=== PATIENT | female | born 1945 | race Caucasian/White ===

== ENCOUNTER → 2017-04-25 | Outpatient (CLI) | payer OTHER ==
[~2017-04-25] MED LIST: ACET325 PO; AMLO5 PO; ASPI325 PO; ASPI81CH PO; ATOR20 PO; ATOR40TA PO; B Complex #11 EACH PO; B Complex1 EAC2 PO; BACL10 PO; CHOL10002; CLOP75 PO; DIGO.125 PO; DIPATR PO; DRON400T PO; FLAX PO; FLUO10 PO; FURO20 PO; Flecainide Acet50 MG PO; GABA100 PO; HYDACE5325 PO; HYDCHL25; HYDCHL25 PO; IBUP600 PO; IBUP800 PO; LIPOFLAVONOID PO; LOSA50 PO; LOSARTAN POTASS50 MG PO; METO25 PO; METO50 PO; MIRT15; MIRT15 PO; NITR.4SL SL; NITR.6SL SL; Nitrostat0.4 MG SL; Norco 5-325 Ta1 EACH PO; OMEGA-3 FISH O1 EAC3; OMEP20ER PO; ONDA4 PO; ONDA4ODT MM; ONDA8 PO; PANT20 PO; PANT40; POTA10T PO; POTCHL10ER PO; PROM25 PO; Prilosec Otc20 MG PO; Simvastatin20 MG PO; TRAM50 PO; TRAZ100 PO; TRAZ50 PO; VITAMIN C500 MG; Veetids 500500 MG PO; Verotin-Gr Cap1 EACH PO; Vitamin C1000 M1; WARF4 PO; XARELTO20 MG PO; Zanaflex2 M1 PO; Zofran Odt4 MG SL
[2017-04-25 14:40] LABS: Source, Urine Clean Catch
[2017-04-25 17:56] LABS: Appearance, Urine Clear (Clear); Bilirubin, Urine Neg (Neg); Blood, Urine 2+ (Neg); Color, Urine Yellow (P-Yellow); Glucose Qualitative, Urine Neg (Neg); Ketones, Urine Neg (Neg); Leukocyte Esterase, Urine Neg (Neg); Nitrite, Urine Neg (Neg); Protein, Urine Neg (Neg); Specific Gravity, Urine 1.025 (1.003-1.022); Urobilinogen, Urine NORM (Normal)
[2017-04-25 18:13] LABS: Calcium Oxalate Crystals Mod /hpf
[2017-04-25 18:14] LABS: Bacteria Rare /hpf; Squamous Epithelial Cells Rare /hpf (Few); White Blood Cells, Urine Not Seen /hpf (0-5)
== END ==
LOC: LAB SHORT 14:39
PROVIDERS: Nurse Practitioner Family
DX: R26.81 Unsteadiness on feet (principal); R25.1 Tremor, unspecified
CPT/HCPCS: 81001

== ENCOUNTER 2017-05-02 12:01 | Day surgery (SDC) | payer OTHER ==
[~2017-05-02] VITALS: Ht 162.6 cm; Wt 107.3 kg
[~2017-05-02 12:01] MED LIST changes: -LOSA50 PO; -ONDA4ODT MM; -Zanaflex2 M1 PO
== END 2017-05-02 13:49 | disposition home or self-care (01) ==
LOC: ORSCSDS 12:01
PROVIDERS: Internal Medicine Gastroenterology
PROC: 0D758ZZ Dilation of Esophagus, Via Natural or Artificial Opening Endoscopic (ICD-10-PCS; principal; 2017-05-02 13:30)
DX: R13.10 Dysphagia, unspecified (principal); K20.9 Esophagitis, unspecified; I10 Essential (primary) hypertension; I48.91 Unspecified atrial fibrillation; J44.9 Chronic obstructive pulmonary disease, unspecified; Z99.81 Dependence on supplemental oxygen; K21.9 Gastro-esophageal reflux disease without esophagitis; Z86.010 Personal history of colon polyps; E66.9 Obesity, unspecified; Z68.41 Body mass index [BMI] 40.0-44.9, adult; Z87.891 Personal history of nicotine dependence; Z79.01 Long term (current) use of anticoagulants; Z79.899 Other long term (current) drug therapy
CPT/HCPCS: J7120

== ENCOUNTER → 2017-06-13 | Outpatient (CLI) | payer OTHER ==
[~2017-06-13] MED LIST changes: +GABA100; -GABA100 PO; +TRAZ100
[2017-06-13 14:16] LABS: International Normalized Ratio 1.97; Prothrombin Time Results 20.9 Sec (9.7-11.5)
== END | disposition home or self-care (01) ==
LOC: LAB EV 12:52 → LAB SHORT 12:52
PROVIDERS: Physician Assistant Medical
DX: Z79.01 Long term (current) use of anticoagulants (principal); Z51.81 Encounter for therapeutic drug level monitoring; N76.4 Abscess of vulva
CPT/HCPCS: 85610; 87070; 87077; 87186; 87205

== ENCOUNTER 2017-07-17 12:32 | Emergency (ER) | payer OTHER ==
[~2017-07-17] VITALS: Ht 162.6 cm; Wt 106.1 kg
[~2017-07-17 12:32] MED LIST changes: -GABA100; +GABA100 PO; -TRAZ100
[2017-07-17] MEDS ORDERED: LOSA50 PO (12:42)
[2017-07-17] MEDS ORDERED: AMLO5 PO (12:43)
[2017-07-17] MEDS ORDERED: Flecainide Acet50 MG PO (12:44)
[2017-07-17] MEDS ORDERED: ONDA4ODT MM (12:45)
[2017-07-17 13:13] LABS: BASOPHILS ABSOLUTE AUTO 0.03 K/mm3 (0.00-0.23); BASOPHILS PERCENT AUTO 0 % (0-2); EOSINOPHILS ABSOLUTE AUTO 0.08 K/mm3 (0.00-0.68); EOSINOPHILS PERCENT AUTO 1 % (0-6); Hematocrit 46.7 % (33.0-51.0); IMMATURE GRAN ABSOLUTE AUTO 0.04 K/mm3 (0.00-0.10); IMMATURE GRAN PERCENT AUTO 0 % (0-1); LYMPHOCYTES ABSOLUTE AUTO 1.67 K/mm3 (0.84-5.20); LYMPHOCYTES PERCENT AUTO 18 % (21-46); MONOCYTES ABSOLUTE AUTO 0.56 K/mm3 (0.16-1.47); MONOCYTES PERCENT AUTO 6 % (4-13); Mean Corpuscular HGB 30.4 pg (26.0-34.0); Mean Corpuscular HGB Conc 32.1 g/dL (31.5-36.5); Mean Corpuscular Volume 95 fL (80-100); Mean Platelet Volume 10.1 fL (9.1-12.4); NEUTROPHILS PERCENT AUTO 75 % (41-73); Platelet Count 222 K/mm3 (150-400); RDW Coefficient Variation 13.1 % (11.7-14.2); RDW Standard Deviation 44.5 fL (35.1-46.3); Red Blood Cell Count 4.94 M/mm3 (3.80-5.20); White Blood Cell Count 9.38 K/mm3 (4.00-11.30)
[2017-07-17 13:28] LABS: Alanine Aminotransfer (ALT/SGP 44 U/L (12-78); Albumin, Blood 3.5 g/dL (3.4-5.0); Albumin/Globulin Ratio 1.1 (0.8-1.8); Alk Phos 118 U/L (50-136); Anion Gap 7 mmol/L (6-16); Aspartate Aminotrans (AST/SGOT 28 U/L (12-37); Bilirubin, Total 0.4 mg/dL (0.1-1.0); Blood Urea Nitrogen 26 mg/dL (8-24); CO2, Blood 24 mmol/L (21-32); Calcium, Blood 8.9 mg/dL (8.5-10.1); Chloride, Blood 108 mmol/L (98-108); Creatinine, Blood 0.74 mg/dL (0.40-1.00); Globulin, Blood 3.2 g/dL (2.2-4.0); Glomerular Filtration Rate >60 (60-); Glucose, Blood 119 mg/dL (70-99); Potassium, Blood 4.4 mmol/L (3.5-5.5); Sodium, Blood 139 mmol/L (136-145); Total Protein, Blood 6.7 g/dL (6.4-8.2); Troponin I <0.015 ng/mL (0.000-0.040)
[2017-07-17 14:10] LABS: International Normalized Ratio 2.09; Prothrombin Time Results 22.2 Sec (9.7-11.5)
[2017-07-17] MEDS ORDERED: Norco 5-325 Ta1 EACH PO (14:34)
== END 2017-07-17 17:11 | disposition home or self-care (01) ==
LOC: ER 12:32
PROVIDERS: Physician Assistant
DX: S09.90XA Unspecified injury of head, initial encounter (principal); M25.531 Pain in right wrist; W18.30XA Fall on same level, unspecified, initial encounter; Z88.8 Allergy status to other drugs, medicaments and biological substances; Z79.899 Other long term (current) drug therapy; Z79.01 Long term (current) use of anticoagulants; I10 Essential (primary) hypertension; E78.00 Pure hypercholesterolemia, unspecified; I48.91 Unspecified atrial fibrillation; Z87.891 Personal history of nicotine dependence
CPT/HCPCS: 36415; 70450; 71046; 73110; 73130; 80053; 83880; 84484; 85025; 85610; 93005; 93010; J2405

== ENCOUNTER 2017-08-18 08:57 | Emergency (ER) | payer OTHER ==
[~2017-08-18] VITALS: Ht 162.6 cm; Wt 104.3 kg
[~2017-08-18 08:57] MED LIST changes: +LOSA50 PO; +ONDA4ODT MM
[2017-08-18] MEDS ORDERED: Zanaflex2 M1 PO (09:16)
[2017-08-18 09:37] LABS: BASOPHILS ABSOLUTE AUTO 0.03 K/mm3 (0.00-0.23); BASOPHILS PERCENT AUTO 0 % (0-2); EOSINOPHILS ABSOLUTE AUTO 0.08 K/mm3 (0.00-0.68); EOSINOPHILS PERCENT AUTO 1 % (0-6); Hematocrit 43.4 % (33.0-51.0); Hemoglobin 14.2 g/dL (11.5-16.0); IMMATURE GRAN ABSOLUTE AUTO 0.04 K/mm3 (0.00-0.10); IMMATURE GRAN PERCENT AUTO 1 % (0-1); LYMPHOCYTES ABSOLUTE AUTO 1.71 K/mm3 (0.84-5.20); LYMPHOCYTES PERCENT AUTO 22 % (21-46); MONOCYTES ABSOLUTE AUTO 0.54 K/mm3 (0.16-1.47); MONOCYTES PERCENT AUTO 7 % (4-13); Mean Corpuscular HGB 30.1 pg (26.0-34.0); Mean Corpuscular HGB Conc 32.7 g/dL (31.5-36.5); Mean Corpuscular Volume 92 fL (80-100); Mean Platelet Volume 9.8 fL (9.1-12.4); NEUTROPHILS ABSOLUTE AUTO 5.57 K/mm3 (1.96-9.15); NEUTROPHILS PERCENT AUTO 70 % (41-73); Platelet Count 233 K/mm3 (150-400); RDW Coefficient Variation 13.5 % (11.7-14.2); RDW Standard Deviation 45.9 fL (35.1-46.3); Red Blood Cell Count 4.71 M/mm3 (3.80-5.20); White Blood Cell Count 7.97 K/mm3 (4.00-11.30)
[2017-08-18 09:57] LABS: Alanine Aminotransfer (ALT/SGP 39 U/L (12-78); Albumin, Blood 3.7 g/dL (3.4-5.0); Albumin/Globulin Ratio 1.2 (0.8-1.8); Alk Phos 107 U/L (50-136); Anion Gap 7 mmol/L (6-16); Aspartate Aminotrans (AST/SGOT 25 U/L (12-37); Bilirubin, Total 0.3 mg/dL (0.1-1.0); Blood Urea Nitrogen 20 mg/dL (8-24); Bun/Creatinine Ratio 31.7 (12.0-20.0); CO2, Blood 30 mmol/L (21-32); Calcium, Blood 8.9 mg/dL (8.5-10.1); Chloride, Blood 105 mmol/L (98-108); Creatinine, Blood 0.63 mg/dL (0.40-1.00); Glomerular Filtration Rate >60 (60-); Glucose, Blood 106 mg/dL (70-99); Potassium, Blood 4.2 mmol/L (3.5-5.5); Sodium, Blood 142 mmol/L (136-145); Total Protein, Blood 6.7 g/dL (6.4-8.2)
[2017-08-18 10:25] LABS: International Normalized Ratio 2.48; Prothrombin Time Results 26.5 Sec (9.7-11.5)
== END 2017-08-18 10:34 | disposition home or self-care (01) ==
LOC: ER 08:57
PROVIDERS: Emergency Medicine
DX: I48.0 Paroxysmal atrial fibrillation (principal); I10 Essential (primary) hypertension; E78.00 Pure hypercholesterolemia, unspecified; Z88.8 Allergy status to other drugs, medicaments and biological substances; Z79.899 Other long term (current) drug therapy; Z79.01 Long term (current) use of anticoagulants; Z87.891 Personal history of nicotine dependence
CPT/HCPCS: 80053; 85025; 85610; 93005; 93010; 99283

== ENCOUNTER → 2018-03-22 | Outpatient (CLI) | payer OTHER ==
[~2018-03-22] MED LIST changes: +Zanaflex2 M1 PO
[2018-03-22 16:49] LABS: BASOPHILS ABSOLUTE AUTO 0.03 K/mm3 (0.00-0.23); BASOPHILS PERCENT AUTO 1 % (0-2); EOSINOPHILS ABSOLUTE AUTO 0.05 K/mm3 (0.00-0.68); EOSINOPHILS PERCENT AUTO 1 % (0-6); Hematocrit 43.9 % (33.0-51.0); IMMATURE GRAN ABSOLUTE AUTO 0.02 K/mm3 (0.00-0.10); IMMATURE GRAN PERCENT AUTO 0 % (0-1); LYMPHOCYTES ABSOLUTE AUTO 1.42 K/mm3 (0.84-5.20); LYMPHOCYTES PERCENT AUTO 23 % (21-46); MONOCYTES ABSOLUTE AUTO 0.37 K/mm3 (0.16-1.47); MONOCYTES PERCENT AUTO 6 % (4-13); Mean Corpuscular HGB Conc 31.9 g/dL (31.5-36.5); Mean Corpuscular Volume 94 fL (80-100); Mean Platelet Volume 9.6 fL (9.1-12.4); NEUTROPHILS PERCENT AUTO 70 % (41-73); Platelet Count 271 K/mm3 (150-400); RDW Coefficient Variation 15.3 % (11.7-14.2); RDW Standard Deviation 52.8 fL (35.1-46.3); Red Blood Cell Count 4.67 M/mm3 (3.80-5.20); White Blood Cell Count 6.19 K/mm3 (4.00-11.30)
[2018-03-22 17:06] LABS: Alanine Aminotransfer (ALT/SGP 31 U/L (12-78); Albumin, Blood 4.1 g/dL (3.4-5.0); Albumin/Globulin Ratio 1.2 (0.8-1.8); Alk Phos 141 U/L (40-126); Anion Gap 8 mmol/L (6-16); Aspartate Aminotrans (AST/SGOT 19 U/L (12-37); Bilirubin, Total 0.3 mg/dL (0.1-1.0); Blood Urea Nitrogen 19 mg/dL (8-24); Bun/Creatinine Ratio 27.1 (12.0-20.0); CO2, Blood 31 mmol/L (21-32); Calcium, Blood 9.7 mg/dL (8.5-10.1); Chloride, Blood 106 mmol/L (98-108); Globulin, Blood 3.3 g/dL (2.2-4.0); Glomerular Filtration Rate >60 (60-); Glucose, Blood 136 mg/dL (70-99); Potassium, Blood 3.9 mmol/L (3.5-5.5); Sodium, Blood 145 mmol/L (136-145); Total Protein, Blood 7.4 g/dL (6.4-8.2)
[2018-03-22 17:48] LABS: International Normalized Ratio 1.19; Prothrombin Time Results 12.1 Sec (9.7-11.5)
== END ==
LOC: LAB EV 16:38 → LAB SHORT 16:38
PROVIDERS: Nurse Practitioner
DX: R31.9 Hematuria, unspecified (principal); Z79.899 Other long term (current) drug therapy
CPT/HCPCS: 80053; 85025; 85610

== ENCOUNTER 2018-07-19 10:05 | Emergency (ER) | payer OTHER ==
[~2018-07-19] VITALS: Ht 162.6 cm; Wt 92.5 kg
[2018-07-19] MEDS ORDERED: CARV25 PO ×2 (10:23→14:36)
[2018-07-19] MEDS ORDERED: GABA300 PO ×2 (10:23→14:28)
[2018-07-19] MEDS ORDERED: Ropinirole HCl1 MG PO ×2 (10:23→14:29)
[2018-07-19] MEDS ORDERED: VOLTAREN100 GM (10:23)
[2018-07-19] MEDS ORDERED: XARELTO20 MG PO (10:24)
[2018-07-19 10:54] LABS: BASOPHILS ABSOLUTE AUTO 0.04 K/mm3 (0.00-0.23); BASOPHILS PERCENT AUTO 1 % (0-2); EOSINOPHILS ABSOLUTE AUTO 0.06 K/mm3 (0.00-0.68); EOSINOPHILS PERCENT AUTO 1 % (0-6); Hematocrit 41.7 % (33.0-51.0); Hemoglobin 13.2 g/dL (11.5-16.0); IMMATURE GRAN ABSOLUTE AUTO 0.04 K/mm3 (0.00-0.10); IMMATURE GRAN PERCENT AUTO 1 % (0-1); LYMPHOCYTES ABSOLUTE AUTO 1.81 K/mm3 (0.84-5.20); LYMPHOCYTES PERCENT AUTO 21 % (21-46); MONOCYTES ABSOLUTE AUTO 0.55 K/mm3 (0.16-1.47); MONOCYTES PERCENT AUTO 7 % (4-13); Mean Corpuscular HGB 30.8 pg (26.0-34.0); Mean Corpuscular HGB Conc 31.7 g/dL (31.5-36.5); Mean Corpuscular Volume 97 fL (80-100); Mean Platelet Volume 9.6 fL (9.1-12.4); NEUTROPHILS ABSOLUTE AUTO 5.96 K/mm3 (1.96-9.15); NEUTROPHILS PERCENT AUTO 70 % (41-73); Platelet Count 199 K/mm3 (150-400); RDW Coefficient Variation 14.6 % (11.7-14.2); RDW Standard Deviation 51.9 fL (35.1-46.3); Red Blood Cell Count 4.28 M/mm3 (3.80-5.20); White Blood Cell Count 8.46 K/mm3 (4.00-11.30)
[2018-07-19 11:23] LABS: Alanine Aminotransfer (ALT/SGP 43 U/L (12-78); Albumin, Blood 3.6 g/dL (3.4-5.0); Albumin/Globulin Ratio 1.4 (0.8-1.8); Alk Phos 86 U/L (50-136); Anion Gap 4 mmol/L (6-16); Aspartate Aminotrans (AST/SGOT 20 U/L (12-37); Bilirubin, Total 0.6 mg/dL (0.1-1.0); Blood Urea Nitrogen 22 mg/dL (8-24); Bun/Creatinine Ratio 36.2 (12.0-20.0); CO2, Blood 31 mmol/L (21-32); Calcium, Blood 8.6 mg/dL (8.5-10.1); Chloride, Blood 107 mmol/L (98-108); Creatinine, Blood 0.61 mg/dL (0.40-1.00); Globulin, Blood 2.6 g/dL (2.2-4.0); Glomerular Filtration Rate >60 (60-); Glucose, Blood 94 mg/dL (70-99); Potassium, Blood 4.2 mmol/L (3.5-5.5); Sodium, Blood 142 mmol/L (136-145); Total Protein, Blood 6.2 g/dL (6.4-8.2); Troponin I <0.015 ng/mL (0.000-0.040)
[2018-07-19] MEDS ORDERED: Flecainide Ace150 MG PO (14:30)
[2018-07-19] MEDS ORDERED: WARF4 PO (14:33)
[2018-07-19] MEDS ORDERED: WARF6 PO (14:34)
[2018-07-19] MEDS ORDERED: ALBU90OI INH (14:37)
== END 2018-07-19 15:30 | disposition home or self-care (01) ==
LOC: ER 10:05
PROVIDERS: Emergency Medicine
DX: R07.9 Chest pain, unspecified (principal); R05 Cough; I48.91 Unspecified atrial fibrillation; I10 Essential (primary) hypertension; E78.00 Pure hypercholesterolemia, unspecified; Z87.891 Personal history of nicotine dependence; Z79.899 Other long term (current) drug therapy; Z88.8 Allergy status to other drugs, medicaments and biological substances
CPT/HCPCS: 36415; 71046; 80053; 83690; 83880; 84484; 85025; 93005; 93010; 99285-25

== ENCOUNTER 2018-09-02 05:47 | Inpatient (IN) | payer OTHER ==
[~2018-09-02] VITALS: Ht 165.1 cm; Wt 103.6 kg
[~2018-09-02 05:47] MED LIST changes: +ALBU90OI INH; +ANORO ELLIPTA1 EACH INH; +CARV25 PO; +Flecainide Ace150 MG PO; +GABA300 PO; +Nyamyc15 GM TOP; +Ropinirole HCl1 MG PO; +VOLTAREN100 GM TOP; +WARF6 PO
--- NOTE | 2018-09-02 07:17 | NUR ---
History, Chart, Medications and Allergies reviewed before start of procedure. History, Chart, Medications and Allergies reviewed before start of procedure. Lungs clear T/O to Auscultation. Patient confirms NPO status and agrees with scheduled surgery. Pre-Op teaching done. Pt verbalizes understanding. Patient reports completing Chlorhexadine shower X2 prior to admission to hospital.
[2018-09-02 07:50] LABS: International Normalized Ratio 0.99; Prothrombin Time Results 10.5 Sec (9.7-11.5)
--- NOTE | 2018-09-02 13:35 | NUR ---
ARRIVED FROM PACU VIA BED, AWAKE, A&OX3, RATES PAIN AT 7/10, TORADOL AND 1 OXYCODONE GIVEN, DENIES ANY NUMBNESS AND TINGLING, PT ABLE TO MOVE TOES AND FEET, CONT. TO MONITOR FOR ANY CHANGES.
--- NOTE | 2018-09-02 17:27 | NUR ---
SUMMARY DENIES ANY PAIN, PT STILL HAVING SOME WEAKNESS AND NUMBNESS ON BLE'S BUT ABLE TO MOVE BLE'S, DSG C/D/I, NO ACUTE CHANGES THIS SHIFT.
[2018-09-03 04:38] LABS: BASOPHILS ABSOLUTE AUTO 0.02 K/mm3 (0.00-0.23); BASOPHILS PERCENT AUTO 0 % (0-2); EOSINOPHILS ABSOLUTE AUTO 0.06 K/mm3 (0.00-0.68); EOSINOPHILS PERCENT AUTO 1 % (0-6); Hemoglobin 10.1 g/dL (11.5-16.0); IMMATURE GRAN ABSOLUTE AUTO 0.04 K/mm3 (0.00-0.10); IMMATURE GRAN PERCENT AUTO 1 % (0-1); LYMPHOCYTES ABSOLUTE AUTO 1.41 K/mm3 (0.84-5.20); LYMPHOCYTES PERCENT AUTO 16 % (21-46); MONOCYTES ABSOLUTE AUTO 0.67 K/mm3 (0.16-1.47); MONOCYTES PERCENT AUTO 8 % (4-13); Mean Corpuscular HGB 31.5 pg (26.0-34.0); Mean Corpuscular HGB Conc 32.6 g/dL (31.5-36.5); Mean Corpuscular Volume 97 fL (80-100); NEUTROPHILS ABSOLUTE AUTO 6.39 K/mm3 (1.96-9.15); NEUTROPHILS PERCENT AUTO 74 % (41-73); Platelet Count 178 K/mm3 (150-400); RDW Coefficient Variation 13.7 % (11.7-14.2); RDW Standard Deviation 48.6 fL (35.1-46.3); Red Blood Cell Count 3.21 M/mm3 (3.80-5.20); White Blood Cell Count 8.59 K/mm3 (4.00-11.30)
[2018-09-03 04:57] LABS: Anion Gap 4 mmol/L (6-16); Blood Urea Nitrogen 17 mg/dL (8-24); Bun/Creatinine Ratio 26.8 (12.0-20.0); CO2, Blood 30 mmol/L (21-32); Calcium, Blood 8.4 mg/dL (8.5-10.1); Chloride, Blood 106 mmol/L (98-108); Creatinine, Blood 0.63 mg/dL (0.40-1.00); Glomerular Filtration Rate >60 (60-); Glucose, Blood 101 mg/dL (70-99); Magnesium, Blood 2.1 mg/dL (1.6-2.4); Potassium, Blood 3.9 mmol/L (3.5-5.5); Sodium, Blood 140 mmol/L (136-145)
[2018-09-03 05:03] LABS: International Normalized Ratio 1.04
--- NOTE | 2018-09-03 07:18 | NUR ---
SUMMARY: POD [address] VANESSA. VSS, AFEBRILE, ROOM AIR, TOLERATING REGULAR DIET AND VOIDING CLEAR YELLOW. PT INITIALLY REPORTED CONTINUED NUMBNESS IN LEFT THIGH AND DID NOT GET OUT OF BED WITH STAFF ASSIST THIS SHIFT. END OF SHIFT PT HAS FULL SENSATION RETURNED AND CONTINUES TO MOVE WELL. PAIN WELL CONTROLLED WITH 5MG OXYCODONE THIS SHIFT. PT MOTIVATED TO WORK WITH PT TODAY AND ANTICIPATE DC HOME LATER.
--- NOTE | 2018-09-03 12:28 | NUR ---
UNSTEADY GAIT PT WAS ASSISTED UP TO THE BATHROOM. SHE SHE BECAME UNSTEADY WHILE AMBULATING AND STUMBLED BACKWARD. PT WAS STEADIED USING GAIT BELT. WILL CONTINUE TO MONITOR.
--- NOTE | 2018-09-03 14:35 | NUR ---
DIZZINESS PT REPORTED SHE BECAME DIZZY WHILE WORKING WITH THERAPY. SHE ALSO BECAME NAUSEATED AFTER THERAPY.
--- NOTE | 2018-09-03 18:17 | NUR ---
SHIFT SUMMARY PAIN HAS BEEN MANAGED WITH PO PAIN MEDICATION THIS SHIFT. PT HAS HAD NAUSEA T/O THE DAY; MANAGED WITH ZOFRAN. MICHELLE FRANCES NOTIFIED OF NAUSEA THIS AM. PT DID NOT CLEAR THERAPY THIS AFTERNOON. WHEN OOB WITH NURSING STAFF PT REQUIRED CONSTANC CUEING FOR SAFETY. SHE IS 1 PERSON ASSIST WHEN OOB. VSS. WILL MONITOR UNTIL REPORT TO ONCOMING RN.
[2018-09-04 05:05] LABS: International Normalized Ratio 1.7; Prothrombin Time Results 17.2 Sec (9.7-11.5)
--- NOTE | 2018-09-04 08:07 | NUR ---
SUMMARY: POD [address] VANESSA. VSS, AFEBRILE. PT TOLERATED SOUP AND YOGURT IN NOC WITH NO NAUSEA; PRN PAIN MEDS GIVEN WITH CRACKERS. PAIN WELL CONTROLLED WITH 10MG ROXICODONE X2 THIS SHIFT. UP WITH 1 MAX ASSIST GB AND FWW FOR BRP; PT REQUIRES VERBAL CUES BUT APPEARS STEADY AND VERBALIZES STEPS OF TRANSFERS. ANTICIPATE PT/OT AND DC HOME LATER THIS DAY.
--- NOTE | 2018-09-04 13:21 | NUR ---
Pt. is doing much better sitting in a chair and talking with her visitor in the room encouraged pt. and offered prayers and spiritual support.
--- NOTE | 2018-09-04 19:00 | NUR ---
SHIFT SUMMARY. PT BEEN HAVING NAUSEA AND EMESIS EARLIER TODAY. PT HAD SPEARMENT PATCH PLACED TO LEFT CHEST AREA WHICH SHE REPORTS MAY BE HELPING HER SHE WAS ABLE TO KEEP DINNER DOWN. PT BEEN ASSISTED WITH ADL'S PRN. PT BEEN VOIDING WITHOUT DIFFICULTY. PT UP WITH ASSIST AND WALKER. PT USING CALL LIGHT APPR.
[2018-09-05 04:33] LABS: International Normalized Ratio 2.64; Prothrombin Time Results 25.6 Sec (9.7-11.5)
--- NOTE | 2018-09-05 07:44 | NUR ---
SUMMARY: POD [address] VANESSA. VSS, AFEBRILE, ROOM AIR, TOLERATING REG DIET DINNER AND SOUP AND YOGURT SNACKS IN NOC. PT UP VOIDING AND TOLERATES SITTING UP TO RECLINER WELL. CRACKERS, COLD RAG AND BEDSIDE FAN AND MEDICATED WITH PO PHENERGAN WITH AM PAIN MEDS TO HELP WITH MILD NAUSEA THIS AM. PT DENIES DIZZINESS, INTOLERABLE PAIN. ANTICIPATE PT/OT AND NAUSEA CONTROL BEFORE DC HOME.
--- NOTE | 2018-09-05 12:59 | NUR ---
DR VANESSA HERE RECENTLY. DISCUSSED PT'S STATUS INCLUDING DIZZINESS AT TIMES AND NAUSEA.
--- NOTE | 2018-09-05 14:51 | NUR ---
Pt. in bed resting and is doing well encouraged pt. and offered prayers .
--- NOTE | 2018-09-05 16:07 | NUR ---
09/05/18 1607 Verenice Limon VERIFICATIONS: EDIT CHART.
--- NOTE | 2018-09-05 16:43 | NUR ---
SHIFT SUMMARY PT BEEN TOLERATING LIQUID FOODS. PT BEEN NASUEA OFF AND ON. PT BEEN RESTING QUIETLY THIS AFTERNOON. PT BEEN HAVING SPEARMENT PATCHES THAT APPEAR TO HELP WITH NAUSEA. "REST OF IVF BAG HANGING" INFUSING PER DR VANESSA. PT PASSING GAS. PT BECAME DIZZY LIGHTHEADED EARLIER TODAY WHEN AMBULATING IN HALLWAY WITH RN AND THERAPY, DR IVAN. FRIENDS IN/OUT OF ROOM. PT USING [employer]vebox APPR. PAS BEEN IN PLACE. POLAR PAC BEEN IN PLACE.
--- NOTE | 2018-09-05 17:28 | NUR ---
REPORT GIVEN TO Марина WHO IS ASSUMING CARE AT THIS TIME.
--- NOTE | 2018-09-06 04:39 | NUR ---
HOSPITALIST NOTIFIED PT C/O CHEST PAIN, STATING SHE "FELT LIKE AN ELEPHANT WAS SITTING ON HER CHEST" W/PAIN RADIATING TO HER LEFT ARM. PT HAD JUST FINISHED USING THE INCENTIVE SPIROMETER AND THE BATHROOM. VSS, HOSPITALIST NOTIFIED, EKG WAS ORDERED. NSR, NONSPECIFIC ST ABNORMALITY, PROLONGED QT WAS RECORDED. COPY WAS PLACED IN CHART. PT STATED SYPTOMS SUBSIDED AFTER RESTING IN BED. SHE REQUESTED TYLENOL, TYLENOL WAS GIVEN. WCTM. PT REMAINS A&O X4.
[2018-09-06 04:43] LABS: International Normalized Ratio 3.37
--- NOTE | 2018-09-06 07:36 | NUR ---
SUMMARY PT HAS REMAINED FREE PF CHEST PAIN SINCE TYLENOL WAS ADMINISTERED. PT STILL C/O OF OCCASIONAL NAUSEA. SUPPOSITORY WAS GIVEN THROUGH THE NIGHT. PT WAS NOT ABLE TO HAVE A BM. GORGE REMAINS C/D/I. VSS. 1 ASSIST. REPORT GIVEN TO DAY RN
--- NOTE | 2018-09-06 09:00 | NUR ---
PATIENT HAD MED BROWN STOOL. STATES 'STOMACH FEELS BETTER.'
--- NOTE | 2018-09-06 12:53 | NUR ---
DR VANESSA HERE TO SEE; VO TO HOLD COUMADIN X 2 DAYS, RESTART ON SUNDAY AND F/U W/ PCP ON SUNDAY.
[2018-09-06] MEDS ORDERED: ONDA4ODT MM (13:13)
[2018-09-06] MEDS ORDERED: ACET500 PO (13:13)
[2018-09-06] MEDS ORDERED: ROXICODONE5 MG PO (13:14)
--- NOTE | 2018-09-06 14:58 | NUR ---
Pt. is jerrod bowden met pt lying in bed resting she reports to be doing well and may go home today offered prayers .
--- NOTE | 2018-09-06 17:05 | NUR ---
PATIENT D/C'D HOME WITH FRIEND AT THIS TIME. MUKESH DELIVERED FWW TO ROOM. PATIENT DENIES NEED FOR PAIN MED. STATES NAUSEA IS RESOLVED. PATIENT STATES UNDERSTANDING OF MEDS, ACTIVITY, OP PT, WOUND CARE, F/U APPT, ETC. NO ACUTE CHANGES OR C/O.
[2018-10-24] MEDS ORDERED: ACETAMINOPHEN650 MG PO (10:11)
[2018-10-24] MEDS ORDERED: Tambocor100 MG PO (10:12)
[2018-10-24] MEDS ORDERED: Lipitor20 MG PO (10:12)
[2018-10-24] MEDS ORDERED: Ferrous Sulfat325 M2 PO (10:12)
[2018-10-24] MEDS ORDERED: OXYC5 PO (10:13)
[2018-10-24] MEDS ORDERED: PANT20 PO (10:13)
[2018-10-24] MEDS ORDERED: POTA10T PO (10:13)
[2018-10-24] MEDS ORDERED: FURO20 PO (10:13)
[2018-10-24] MEDS ORDERED: Coumadin5 MG PO (10:14)
[2018-10-24] MEDS ORDERED: VOLTAREN100 GM TOP (10:14)
[2018-10-24] MEDS ORDERED: Ropinirole HCl1 MG PO (10:14)
[2018-10-24] MEDS ORDERED: ONDA4 PO (10:17)
[2018-10-24] MEDS ORDERED: Zofran4 MG PO (10:18)
[2018-10-24] MEDS ORDERED: LOSA50 PO (10:18)
[2018-10-24] MEDS ORDERED: BUSP5 PO (10:18)
== END 2018-09-06 17:04 | disposition home or self-care (01) | DRG 470 ==
LOC: SURS 05:47 → PRE IP 07:30 → SURS 12:50
PROVIDERS: Anesthesiology; ADMIT Orthopaedic Surgery
PROC: 0SRB04A Replacement of Left Hip Joint with Ceramic on Polyethylene Synthetic Substitute, Uncemented, Open Approach (ICD-10-PCS; principal; 2018-09-02 07:30)
DX: M16.12 Unilateral primary osteoarthritis, left hip (principal); I10 Essential (primary) hypertension; J44.9 Chronic obstructive pulmonary disease, unspecified; K21.9 Gastro-esophageal reflux disease without esophagitis; I25.10 Atherosclerotic heart disease of native coronary artery without angina pectoris; E11.9 Type 2 diabetes mellitus without complications; G47.33 Obstructive sleep apnea (adult) (pediatric); I48.91 Unspecified atrial fibrillation; E66.9 Obesity, unspecified; Z68.34 Body mass index [BMI] 34.0-34.9, adult; Z87.891 Personal history of nicotine dependence
CPT/HCPCS: 36415; 72170; 80048; 82947; 83735; 85025; 85610; 85730; 88300; 93005; 93010; 97110; 97116; 97162; 97530; C1776; J0171; J0690; J0735; J1885; J2250; J2405; J2704; J2765; J2795; J7120

== ENCOUNTER 2018-09-08 15:00 | Inpatient (IN) | payer OTHER ==
[~2018-09-08] VITALS: Ht 162.6 cm; Wt 113.0 kg
[~2018-09-08 15:00] MED LIST changes: +ACET500 PO; +ROXICODONE5 MG PO
[2018-09-08 15:32] LABS: Source, Urine Catheter
[2018-09-08 15:40] LABS: Appearance, Urine Hazy (Clear); Blood, Urine 5+ (Neg); Color, Urine Amber (P-Yellow); Glucose Qualitative, Urine Neg (Neg); Ketones, Urine 3+ (Neg); Leukocyte Esterase, Urine 2+ (Neg); Nitrite, Urine Pos (Neg); Protein, Urine 3+ (Neg); Specific Gravity, Urine 1.025 (1.003-1.022); Urobilinogen, Urine 2+ (Normal)
[2018-09-08 15:40] LABS: Hematocrit 28.8 % (33.0-51.0); Hemoglobin 9.1 g/dL (11.5-16.0); Mean Corpuscular HGB 30.8 pg (26.0-34.0); Mean Corpuscular HGB Conc 31.6 g/dL (31.5-36.5); Mean Corpuscular Volume 98 fL (80-100); Platelet Count 341 K/mm3 (150-400); RDW Standard Deviation 49.6 fL (35.1-46.3); Red Blood Cell Count 2.95 M/mm3 (3.80-5.20); White Blood Cell Count 10.66 K/mm3 (4.00-11.30)
[2018-09-08 15:46] LABS: Bilirubin, Urine 2+ (Neg)
[2018-09-08 15:47] LABS: Red Blood Cells, Urine TNTC /hpf (0-2)
[2018-09-08 15:48] LABS: Bacteria Many /hpf; Hyaline Casts 0-2 /lpf (0-2); Mucus Heavy (0-Heavy); Squamous Epithelial Cells Not Seen /hpf (Few)
[2018-09-08 15:53] LABS: International Normalized Ratio 2.41; Prothrombin Time Results 23.6 Sec (9.7-11.5)
[2018-09-08 15:58] LABS: BAND PERCENT MAN 9 % (0-8); BASOPHILS PERCENT MAN 0 % (0-2); EOSINOPHILS PERCENT MAN 0 % (0-6); LYMPHOCYTES ABSOLUTE MAN 0.53 K/mm3 (0.84-5.20); LYMPHOCYTES PERCENT MAN 5 % (21-46); METAMYELOCYTE ABSOLUTE MAN 0.31 K/mm3 (0.00-0.00); METAMYELOCYTE PERCENT MAN 3 % (0-0); MONOCYTES ABSOLUTE MAN 0.21 K/mm3 (0.16-1.47); MONOCYTES PERCENT MAN 2 % (4-13); MYELOCYTE PERCENT MAN 1 % (0-0); NEUTROPHILS ABSOLUTE MAN 9.48 K/mm3 (1.96-9.15); SEG NEUTROPHILS PERCENT MAN 80 % (41-73); TOTAL CELLS COUNTED 100
[2018-09-08 16:02] LABS: Alanine Aminotransfer (ALT/SGP 22 U/L (12-78); Albumin, Blood 2.7 g/dL (3.4-5.0); Albumin/Globulin Ratio 0.9 (0.8-1.8); Alk Phos 103 U/L (50-136); Anion Gap 7 mmol/L (6-16); Aspartate Aminotrans (AST/SGOT 29 U/L (12-37); Bilirubin, Total 0.8 mg/dL (0.1-1.0); Blood Urea Nitrogen 18 mg/dL (8-24); Bun/Creatinine Ratio 21.4 (12.0-20.0); CO2, Blood 28 mmol/L (21-32); Calcium, Blood 8.5 mg/dL (8.5-10.1); Chloride, Blood 101 mmol/L (98-108); Creatinine, Blood 0.84 mg/dL (0.40-1.00); Globulin, Blood 2.9 g/dL (2.2-4.0); Glomerular Filtration Rate >60 (60-); Glucose, Blood 124 mg/dL (70-99); Potassium, Blood 4.5 mmol/L (3.5-5.5); Sodium, Blood 136 mmol/L (136-145); Total Protein, Blood 5.6 g/dL (6.4-8.2); Troponin I <0.015 ng/mL (0.000-0.040)
--- NOTE | 2018-09-08 19:30 | NUR ---
ASSUMED CARE NEW ADMISSION TO PCU 15 @ APPROXIMATELY 1830 THIS EVENING. CARE ASSUMED AT 1915. PT IS CURRENTLY ORIENTED TO SELF, TOWN AND FOLLOWING DIRECTIONS; DISORIENTED TO DATE/TIME AND FORGETFUL. FREQUENTLY REQUIRING RE-ORIENTATION TO SITUATIONS SUCH CATHETER IN PLACE. PT IS VERY RESTLESS AND ANXIOUS, REPORTING EXTREME DISCOMFORT TO LOWER ABDOMEN AND L HIP "UP INTO HER KIDNEYS". O2 SATS FOUND TO BE AT 85% ON RA, O2 PLACED ON PATIENT @ 2L/MIN AND SATURATIONS INCREASED TO 95% WITHIN ONE MINUTE. ALL OTHER VSS. PT CURRENTLY REPORTS THAT SHE DOESN'T WEAR OXYGEN AT HOME. LUNG SOUNDS ARE CLEAR. UPON ASSESSMENT, L HIP IS NOTED TO HAVE SURGICAL DRESSING OVER HIP INCISION THAT IS INTACT WITH SMALL AMOUNT OF DRY, BROWN DRAINAGE. SURROUNDING INCISION IS DIFFUSE BRUISING FROM HIP TO KNEE AND SITE IS NOTED TO BE FIRM, SWOLLEN AND WARM TO THE TOUCH. MOTTLING OF BLE'S IS NOTED UP TO MID THIGHS. BAEZ IN PLACE AND DRAINING SMALL AMOUNT OF DARK, CAN URINE. FLUIDS INFUSING AT 200 ML/HR TO LFA SITE. WILL CONTINUE WITH ASSESSMENT AND MONITORING. BED IN LOW POSITION, CALL LIGHT IN REACH. BED ALARM SET FOR SAFETY.
--- NOTE | 2018-09-08 23:45 | NUR ---
PROVIDER CONTACTED PT WITH BLOOD PRESSURE OF 74/39. PT REPORTING MILD DIZZINESS. DR GRAHAM CONTACTED AND ORDERS RECEIVED FOR NS BOLUS OF 500 ML. WILL INPUT AND ADMINISTER. WILL CONTINUE WITH MONITORING.
--- NOTE | 2018-09-09 01:15 | NUR ---
PROVIDER CONTACTED PT WITH CONTINUED HYPOTENSION AFTER FLUID BOLUS. DR GRAHAM CONTACTED AND ORDERS RECEIVED FOR SECOND 500 ML BOLUS OF NS. WILL INPUT ORDERS AND ADMINISTER.
--- NOTE | 2018-09-09 01:55 | NUR ---
PROVIDER CONTACTED PT REMAINS HYPOTENSIVE AFTER SECOND FLUID BOLUS. PT IS CURRENTLY ASYMPTOMATIC WITH LOW BP. DR GRAHAM CONTACTED AND ORDERS RECEIVED FOR TRANSFER TO ICU AND START ON LEVOPHED DRIP. WILL INPUT ORDERS AND WORK ON TRANSFER.
--- NOTE | 2018-09-09 02:15 | NUR ---
TRANSFER REPORT CALLED TO [facility] START UP SPECIALIST @ APPROXIMATELY 0200. PT INFORMED OF UNIT TRANSFER DUE TO BLOOD PRESSURE. FAMILY MEMBER, JOHN, CALLED AND UPDATED ON PT STATUS AND ROOM TRANSFER. WILL TRANSFER PATIENT AT THIS TIME.
[2018-09-09 02:31] LABS: Adenovirus F 40/41 Not Detected (NOT DETECT); Astrovirus Not Detected (NOT DETECT); Campylobacter Sp Not Detected (NOT DETECT); Cryptosporidium Not Detected (NOT DETECT); Cyclospora Cayetanensis Not Detected (NOT DETECT); E. Coli O157 Not Detected (NOT DETECT); Entamoeba Histolytica Not Detected (NOT DETECT); Enteroaggregative E. coli-EAEC Not Detected (NOT DETECT); Enteropathogenic E. coli-EPEC Not Detected (NOT DETECT); Enterotoxigenic E. coli-ETEC Not Detected (NOT DETECT); Giardia Lamblia Not Detected (NOT DETECT); Norovirus GI/GII Not Detected (NOT DETECT); Plesiomonas Shigelloides Not Detected (NOT DETECT); Rotavirus A Not Detected (NOT DETECT); Salmonella Sp Not Detected (NOT DETECT); Sapovirus Not Detected (NOT DETECT); Shiga Toxin-prod E. coli-STEC Not Detected (NOT DETECT); Shigella/Enteroin E. coli-EIEC Not Detected (NOT DETECT); Vibrio Cholerae Not Detected (NOT DETECT); Vibrio Sp Not Detected (NOT DETECT); Yersinia Enterocolitica Not Detected (NOT DETECT)
--- NOTE | 2018-09-09 02:45 | NUR ---
INITIAL ASSESSMENT PATIENT ARRIVED TO UNIT AT 0230. PATIENT ALERT AND ORIENTED TO SELF, FAMILY, FOLLOWING DIRECTIONS, SURROUNDINGS. PATIENT DISORIENTED TO TIME, DATE, PLACE. PATIENT FORGETFUL AND ASKS SAME QUESTIONS MULTIPLE TIMES. PATIENT ANXIOUS. PATIENT AFEBRILE. PATIENT COMPLAINS OF "SQUEEZING PAIN IN STOMACH". PATIENT HAS HAD RECENT L HIP REPLACEMENT. REPORT RECEIVED THAT PATIENT HAS BEEN AMBULATING AT HOME WITH WALKER. PATIENT SATTING 90% AND GREATER ON 2 L NC. PATIENT WEARS 2 L NC AT HOME AT HS AND WITH EXERTION. LUNGS CLEAR THROUGHOUT AND DIMINISHED IN LOWER LOBES. SOB WITH EXERTION. PATIENT IN SR, HR IN THE 80S. SBP IN THE LOW 90S. 1+ EDEMA NOTED IN LLE, TRACE EDEMA IN RLE. ANTIEMBOLISM STOCKINGS IN PLACE. ABDOMEN MILDLY DISTENDED, SOFT, TENDER, WITH TYMPANIC BS NOTED. PATIENT STATES SHE IS MILDLY NAUSEOUS AT THIS TIME AND HAS BEEN/ HAD N/V/D AT HOME LAST FEW DAYS. BAEZ IN PLACE AND DRAINING DARK CAN COLORED URINE. SKIN IS PALE AND COOL. SCATTERED BRUISES NOTED T/ O BODY. INCISION TO LEFT OUTER LEG; DRESSING REPLACED BY MODEL MAKER PLASTER STARTING TO COME OFF. NS INFUSING AT 200 MLS/ HOUR. PATIENT ORIENTED TO UNIT, ROOM AND CALL SYSTEM. BED LOW, CALL LIGHT IN REACH. WILL CONTINUE TO MONITOR PATIENT FREQUENTLY THROUGHOUT SHIFT.
[2018-09-09 03:52] LABS: BASOPHILS ABSOLUTE AUTO 0.03 K/mm3 (0.00-0.23); BASOPHILS PERCENT AUTO 0 % (0-2); Hematocrit 26.4 % (33.0-51.0); Hemoglobin 8.2 g/dL (11.5-16.0); LYMPHOCYTES ABSOLUTE AUTO 0.82 K/mm3 (0.84-5.20); LYMPHOCYTES PERCENT AUTO 5 % (21-46); MONOCYTES ABSOLUTE AUTO 0.75 K/mm3 (0.16-1.47); MONOCYTES PERCENT AUTO 4 % (4-13); Mean Corpuscular HGB 31.7 pg (26.0-34.0); Mean Corpuscular HGB Conc 31.1 g/dL (31.5-36.5); Mean Platelet Volume 9.3 fL (9.1-12.4); Platelet Count 269 K/mm3 (150-400); RDW Coefficient Variation 14.3 % (11.7-14.2); RDW Standard Deviation 52.5 fL (35.1-46.3); Red Blood Cell Count 2.59 M/mm3 (3.80-5.20); White Blood Cell Count 18.13 K/mm3 (4.00-11.30)
[2018-09-09 03:55] LABS: EOSINOPHILS PERCENT AUTO 0 % (0-6); IMMATURE GRAN ABSOLUTE AUTO 0.11 K/mm3 (0.00-0.10); IMMATURE GRAN PERCENT AUTO 1 % (0-1); Mean Corpuscular Volume 102 fL (80-100); NEUTROPHILS ABSOLUTE AUTO 16.42 K/mm3 (1.96-9.15); NEUTROPHILS PERCENT AUTO 91 % (41-73)
[2018-09-09 04:11] LABS: Alanine Aminotransfer (ALT/SGP 20 U/L (12-78); Albumin, Blood 2.3 g/dL (3.4-5.0); Albumin/Globulin Ratio 0.9 (0.8-1.8); Alk Phos 78 U/L (50-136); Anion Gap 6 mmol/L (6-16); Aspartate Aminotrans (AST/SGOT 30 U/L (12-37); Bilirubin, Total 0.6 mg/dL (0.1-1.0); Blood Urea Nitrogen 21 mg/dL (8-24); Bun/Creatinine Ratio 27.3 (12.0-20.0); CO2, Blood 25 mmol/L (21-32); Calcium, Blood 7.4 mg/dL (8.5-10.1); Chloride, Blood 109 mmol/L (98-108); Creatinine, Blood 0.77 mg/dL (0.40-1.00); Globulin, Blood 2.6 g/dL (2.2-4.0); Glomerular Filtration Rate >60 (60-); Glucose, Blood 104 mg/dL (70-99); Potassium, Blood 4.1 mmol/L (3.5-5.5); Sodium, Blood 140 mmol/L (136-145); Total Protein, Blood 4.9 g/dL (6.4-8.2)
--- NOTE | 2018-09-09 04:30 | NUR ---
OK TO USE CENTRAL LINE PER DOCTOR GRAHAM.
--- NOTE | 2018-09-09 06:44 | NUR ---
SHIFT SUMMARY PATIENT SLEEPING SOUNDLY. PATIENT REMAINS ALERT AND ORIENTED TO SELF, SURROUNDING, FOLLOWING COMMANDS, FAMILY. PATIENT FORGETFUL AT TIMES. PATIENT HAS REMAINED AFEBRILE. PATIENT RECEIVED PRN MEDICATIONS FOR COMPLAINT OF ABDOMINAL PAIN. PATIENT HAS REMAINED BEDREST PER HYPOTENSION. NC INCREASED FROM 2 L TO 6 L AFTER ADMINISTRATION OF PAIN MEDICATIONS AFTER CENTRAL LINE PLACED. PATIENT CURRENTLY ON 5 L NC AND SATTING 90% AND GREATER. PATIENT SOB WITH EXERTION. PATIENT REMAINED IN SR, HR IN THE 80S. PATIENT HAS BEEN HYPOTENSIVE. PATIENT STARTED ON LEVOPHED DRIP AFTER R IJ CENTRAL LINE PLACED. PATIENT CURRENTLY ON 12 MCG/ MINUTE OF LEVOPHED. PATIENT INITIALLY NAUSEOUS WHEN CAME TO UNIT. PATIENT DID NOT HAVE BM THIS SHIFT BUT REPORTED TO HAVE BEEN HAVING LIQUID STOOLS. GI PANEL SENT IN PCU. BAEZ DRAINED 250 MLS DARK CAN COLORED URINE. NS INFUSING AT 200 MLS/ HOUR. PATIENT CURRENTLY HAS NO COMPLAINTS. BED LOW, CALL LIGHT IN REACH. WILL BE GIVING REPORT TO ONCOMING DAY SHIFT NURSE SHORTLY.
[2018-09-09 09:18] LABS: Percent Saturation 5.1 % (15.0-50.0)
--- NOTE | 2018-09-09 10:01 | NUR ---
CARE ASSUMED CARE AND REPORT ASSUMED FROM ALANIS WYATT. PT SLEEPING BUT EASILY AROUSABLE. A/O X PERSON, PLACE. FORGETFUL AT TIMES. C/O PAIN TO BACK AND ABDOMEN; FENTANYL 50 MCG IVP GIVEN. HAD RECENT L HIP SURGERY; DRESSING THAT WAS APPLIED LASTNIGHT IS CLEAN, DRY AND INTACT. ATTEMPTING TO TITRATE LEVOPHED GTT DOWN; CURRENTLY INFUSING AT 10 MCG/KG/MIN. NS MIV CHANGED FROM 200 ML/HR TO 125 ML/HR PER ORDER. DIET ADVANCED TO CLEAR LIQUIDS PER MD; PT TOLERATING PO DRINKS WITHOUT ISSUES AT THIS TIME. AFEBRILE. NSR, HR 70-80S. CALL LIGHT WITHIN REACH. WILL CONTINUE TO MONITOR.
[2018-09-09 10:29] LABS: Prothrombin Time Results 39.4 Sec (9.7-11.5)
[2018-09-09 10:33] LABS: International Normalized Ratio 4.24
--- NOTE | 2018-09-09 12:12 | NUR ---
REASSESSMENT PT REMAINS IN BED. WORKED WITH PT THIS AM AND TOLERATED WELL. C/O PAIN TO ABDOMEN; DILAUDID GIVEN AND PAIN IMPROVED. PT TOLERATING DRINKING WATER. REMAINS ON LEVOPHED GTT AT 10 MCG/MIN; MAP 65-75. SPO2 97% ON 3L NC. NS INFUSING AT 125 ML/HR PER ORDER. AFEBRILE. NSR, HR 70S. REQUESTING TO TAKE A NAP. WILL CONTINUE TO MONITOR.
--- NOTE | 2018-09-09 18:39 | NUR ---
SHIFT SUMMARY PT REMAINED IN BED ENTIRE SHIFT. LEVOPHED TITRATED DOWN DURING SHIFT; CURRENTLY INFUSING AT 4 MCG. MIV CHANGED TO 125 ML/HR. CENTRAL LINE DRESSING CHANGED TODAY. PT RECIEVED BEDBATH AND LINEN CHANGE. GIVEN FENTANYL AND DILAUSDID FOR PAIN PRN. SINCE RECIECING SECOND DOSE OF DIALUDID, PT HAS BEEN HALLUCINATING AND TALKING TO PEOPLE WHO ARE NOT IN ROOM. COUMADIN TO BE HELD TODAY. REMAINS IN NSR, HR 90S. WILL GIVE BEDSIDE, HANDOFF REPORT TO NOC RN.
--- NOTE | 2018-09-09 20:50 | NUR ---
INITIAL ASSESSMENT PATIENT RESTING QUIETLY IN BED, WATCHING TV UPON ENTERING ROOM. PATIENT ALERT AND ORIENTED X 4, FORGETFUL AT TIMES. PATIENT AND RN STATE THAT PRN DILAUDID MADE PATIENT HALLUCINATE AND A LITTLE CONFUSED ON DAY SHIFT. PATIENT CALM AND COOPERATIVE AT THIS TIME. PATIENT CAN BE ANXIOUS AT TIMES. PATIENT AFEBRILE. PATIENT STATES SHE HAS PAIN IN ABDOMEN AND "KIDNEYS". PATIENT STATES THAT WHEN SHE WAS IN THE HOSPITAL BEFORE THAT TYLENOL HAS ALWAYS WORKED FOR HER. PATIENT GIVEN PRN TYLENOL. PATIENT WEAK IN LOWER EXTREMITIES. PATIENT HAD RECENT LEFT HIP REPLACEMENT. PATIENT REPORTS THAT SHE HAD BEEN GETTING AROUND HOME WITH WALKER PRIOR TO ADMIT, AFTER HIP SURGERY. PATIENT BEDREST AT THIS TIME ON LEVOPHED FOR HYPOTENSION. PATIENT SATTING 90% AND GREATER ON 3 L NC. LUNGS CLEAR THROUGHOUT, DIMINISHED IN LOWER LOBES. PATIENT DENIES COUGH. PATIENT DOES HAVE SMALL AMOUNT OF SOB NOTED WITH EXERTION. PATIENT IN SR TO ST, HR 90S TO LOW 100S. BP IS STABLE ON LEVOPHED DRIP. ANTIEMBOLISM STOCKINGS IN PLACE. PULSES STRONG. ABDOMEN MILDLY DISTENDED, SOFT, TENDER TO PALPATION, WITH HYPOACTIVE BS NOTED. PATIENT STATES SHE IS "A LITTLE NAUSEOUS BUT NOT FEELING LIKE SHE IS GOING TO THROW UP OR ANYTHING". PATIENT DID NOT HAVE ANY BMS ON DAY SHIFT THAT ARE NOTED. PATIENT ON CLEAR LIQUID DIET. BAEZ DRAINING DARK CAN COLORED URINE. DRESSING TO LEFT LEG INCISION ARE C/D/I. PATIENT HAS SCATTERED BRUISES NOTED. SKIN PALE AND WARM. PATIENT MISSING R INDEX FINGER. LEVOPHED INFUSING AT 2 MCG/ MINUTE, NS INFUSING AT 125 MLS/ HOUR. BED LOW, CALL LIGHT IN REACH. WILL CONTINUE TO MONITOR PATIENT FREQUENTLY THROUGHOUT SHIFT.
--- NOTE | 2018-09-09 23:46 | NUR ---
PATIENT RESTING WITH EYES CLOSED. PATIENT HAS NO COMPLAINTS AT THIS TIME. PATIENT AFEBRILE. PATIENT FORGETFUL AT TIMES. PATIENT SATTING 90% AND GREATER ON 1 L NC. PATIENT IN SR, HR IN THE 80S. BP STABLE ON LEVOPHED DRIP. LEVOPHED NOW AT 10 MCG/ MINUTE. NO OTHER ACUTE CHANGES TO NOTE ON AT THIS TIME. WILL CONTINUE TO MONITOR.
--- NOTE | 2018-09-10 04:02 | NUR ---
PATIENT WATCHING TV IN BED. PATIENT CONFUSED ON AND OFF. PATIENT ASKED IF WE WERE AT A COLLEGE. PATIENT AFEBRILE. PATIENT GIVEN PRN TYLENOL FOR COMPLAINT OF ABDOMINAL AND LOWER BACK PAIN. PATIENT SATTING 90% AND GREATER ON 1 L NC. PATIENT IN SR TO ST, HR 90S TO LOW 100S. LEVOPHED DRIP ON STANDBY. SBP 160. BAEZ DRAINING ADEQUATE AMOUNT OF DARK YELLOW COLORED URINE. NO OTHER ACUTE CHANGES TO NOTE ON AT THIS TIME. WILL CONTINUE TO MONITOR.
[2018-09-10 04:10] LABS: BASOPHILS ABSOLUTE AUTO 0.02 K/mm3 (0.00-0.23); BASOPHILS PERCENT AUTO 0 % (0-2); Hematocrit 25.6 % (33.0-51.0); Mean Corpuscular HGB 31.4 pg (26.0-34.0); Mean Corpuscular HGB Conc 31.3 g/dL (31.5-36.5); Mean Corpuscular Volume 100 fL (80-100); Platelet Count 341 K/mm3 (150-400); RDW Coefficient Variation 14.3 % (11.7-14.2); RDW Standard Deviation 52.5 fL (35.1-46.3); Red Blood Cell Count 2.55 M/mm3 (3.80-5.20); White Blood Cell Count 14.88 K/mm3 (4.00-11.30)
[2018-09-10 04:11] LABS: EOSINOPHILS PERCENT AUTO 0 % (0-6); IMMATURE GRAN ABSOLUTE AUTO 0.17 K/mm3 (0.00-0.10); IMMATURE GRAN PERCENT AUTO 1 % (0-1); LYMPHOCYTES PERCENT AUTO 4 % (21-46); MONOCYTES ABSOLUTE AUTO 0.29 K/mm3 (0.16-1.47); MONOCYTES PERCENT AUTO 2 % (4-13); NEUTROPHILS PERCENT AUTO 93 % (41-73)
[2018-09-10 04:28] LABS: Alanine Aminotransfer (ALT/SGP 25 U/L (12-78); Albumin, Blood 2.1 g/dL (3.4-5.0); Albumin/Globulin Ratio 0.8 (0.8-1.8); Alk Phos 94 U/L (50-136); Anion Gap 6 mmol/L (6-16); Aspartate Aminotrans (AST/SGOT 36 U/L (12-37); Bilirubin, Total 0.5 mg/dL (0.1-1.0); Blood Urea Nitrogen 13 mg/dL (8-24); Bun/Creatinine Ratio 26.6 (12.0-20.0); CO2, Blood 26 mmol/L (21-32); Calcium, Blood 7.5 mg/dL (8.5-10.1); Chloride, Blood 108 mmol/L (98-108); Creatinine, Blood 0.49 mg/dL (0.40-1.00); Globulin, Blood 2.6 g/dL (2.2-4.0); Glomerular Filtration Rate >60 (60-); Glucose, Blood 91 mg/dL (70-99); Potassium, Blood 3.7 mmol/L (3.5-5.5); Sodium, Blood 140 mmol/L (136-145); Total Protein, Blood 4.7 g/dL (6.4-8.2)
[2018-09-10 04:32] LABS: Prothrombin Time Results 42.9 Sec (9.7-11.5)
[2018-09-10 04:34] LABS: International Normalized Ratio 4.65
--- NOTE | 2018-09-10 06:16 | NUR ---
SHIFT SUMMARY PATIENT SLEPT ON AND OFF THROUGHOUT SHIFT. PATIENT RANGED FROM ALERT AND ORIENTED X 4 WITH OCCASIONAL FORGETFUL AT TIMES TO CONFUSED AND ORIENTED ONLY TO SELF, FAMILY, FOLLOWING DIRECTIONS. PATIENT ANXIOUS A FEW TIMES THROUGH SHIFT. PATIENT REMAINED AFEBRILE. PATIENT COMPLAINED SEVERAL TIMES OF PAIN IN ABDOMEN AND LOWER BACK. PATIENT GIVEN PRN TYLENOL AND FENTANYL ORDERED. PATIENT SATTED 90% AND GREATER ON 1 TO 3 L NC. LUNGS REMAINED CLEAR THROUGHOUT, DIMINISHED IN LOWER LOBES. PATIENT SR TO ST, HR 80S TO LOW 100S. SBP RANGED FROM 70S TO 160S. LEVOPHED DRIP SB TO 16 MCG/ MINUTE T/O NIGHT. ABDOMEN REMAINS MILDLY DISTENDED, SOFT, TENDER, WITH HYPOACTIVE BS. PATIENT DID NOT HAVE BM THIS SHIFT. PATIENT HAD ADEQUATE AMOUNT OF URINE FROM BAEZ. URINE DARK CAN AT BEGINNING OF SHIFT AND HAS LIGHTENED TO DARK YELLOW. NO CHANGE IN SKIN. PATIENT REPOSITIONED T/O SHIFT. LEVOPHED CURRENTLY INFUSING AT 4 MCG/ MINUTE, NS AT 125 MLS/ HOUR. BED LOW, CALL LIGHT IN REACH. WILL BE GIVING REPORT TO ONCOMING DAY SHIFT NURSE SHORTLY.
--- NOTE | 2018-09-10 07:33 | NUR ---
ASSUMED CARE: PT RESTING IN BED, NC AT 3L. LEVOPHED 3MCG/MIN. AWAKE AND SPEAKING TO STAFF, ORIENTED AT THIS TIME. NO FURTHER NEEDS OR CONCERNS AT PRESENT
--- NOTE | 2018-09-10 09:30 | NUR ---
DISCUSSED PT WITH DR SANDHU. ASKED IF GLOBAL COMPENSATION DIRECTOR CONSULT NEEDED. NO NEW ORDERS AT THIS TIME.
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
--- NOTE | 2018-09-10 18:14 | NUR ---
SHIFT SUMMARY: PT HAS BECOME MORE CONFUSED BY THE END OF THE SHIFT BUT REORIENTABLE. MEDICATED X3 FOR PAIN THIS SHIFT. LEVOPHED AT 3MCG/MIN. ATTEMPTED TO TITRATE OFF BUT BP WOULD NOT REMAIN STABLE. INSULATOR TESTER AWARE. NO FURTHER NEEDS OR CONCERNS
--- NOTE | 2018-09-10 20:00 | NUR ---
INITIAL ASSESSMENT PATIENT RESTING QUIETLY IN BED, WATCHING TV UPON ENTERING ROOM. PATIENT ALERT AND ORIENTED X 4, FORGETFUL AT TIMES. AFEBRILE. PATIENT HAS NO COMPLAINTS. PATIENT WEAK- BEDREST AT THIS TIME FOR HYPOTENSION. PATIENT SATTING 90% AND GREATER ON 2 L NC. LUNGS CLEAR THROUGHOUT, DIMINISHED IN LOWER LOBES. MILD SOB WITH EXERTION NOTED. PATIENT IN NSR, HR 80S TO 90S. BP STABLE ON LEVOPHED DRIP. ANTIEMBOLISM STOCKINGS IN PLACE. 1+ EDEMA NOTED TO LLE- RECENT L HIP REPLACEMENT. ABDOMEN MILDLY DISTENDED, SOFT, TENDER, WITH TYMPANIC BS NOTED. LAST LIQUID STOOL DOCUMENTED ON 09/09. PATIENT TOLERATING CLEAR LIQUID DIET WELL. BAEZ DRAINING DARK YELLOW COLORED URINE. DRESSING TO L HIP C/D/I. SCATTERED BRUISES NOTED T/O BODY. SKIN IS PALE AND WARM. MISSING R INDEX FINGER. LEVOPHED INFUSING AT 1 MCG/ MINUTE AND NS AT 125 MLS/ HOUR. BED LOW, CALL LIGHT IN REACH. WILL CONTINUE TO MONITOR PATIENT FREQUENTLY THROUGHOUT SHIFT.
--- NOTE | 2018-09-11 00:20 | NUR ---
PATIENT LYING IN BED TALKING TO SELF AND OTHER PEOPLE SHE BELIEVES ARE IN THE ROOM BUT ARE NOT. PATIENT WOKE FROM SLEEPING AND IS VERY CONFUSED AND ANXIOUS. PATIENT ORIENTED TO SELF AND FOLLOWING COMMANDS ONLY. PATIENT REORIENTED TO PLACE AND SITUATION BUT THEN IMMEDIATELY FORGETS AND ASKS WHAT IS GOING ON. PATIENT AFEBRILE. PATIENT GIVEN PRN TYLENOL SHORT TIME AGO FOR COMPLAINT OF PAIN IN ABDOMEN. PATIENT REMAINS SATTING 90% AND GREATER ON 2 L NC. PATIENT IN SR, HR IN THE 90S. BP STABLE. LEVOPHED ON STANDBY. NO OTHER ACUTE CHANGES TO NOTE ON AT THIS TIME. WILL CONTINUE TO MONITOR.
[2018-09-11 04:07] LABS: BASOPHILS ABSOLUTE AUTO 0.03 K/mm3 (0.00-0.23); BASOPHILS PERCENT AUTO 0 % (0-2); EOSINOPHILS ABSOLUTE AUTO 0.02 K/mm3 (0.00-0.68); EOSINOPHILS PERCENT AUTO 0 % (0-6); Hematocrit 25.8 % (33.0-51.0); Hemoglobin 7.9 g/dL (11.5-16.0); IMMATURE GRAN ABSOLUTE AUTO 0.17 K/mm3 (0.00-0.10); IMMATURE GRAN PERCENT AUTO 1 % (0-1); LYMPHOCYTES ABSOLUTE AUTO 0.68 K/mm3 (0.84-5.20); LYMPHOCYTES PERCENT AUTO 4 % (21-46); MONOCYTES ABSOLUTE AUTO 0.44 K/mm3 (0.16-1.47); MONOCYTES PERCENT AUTO 3 % (4-13); Mean Corpuscular HGB Conc 30.6 g/dL (31.5-36.5); Mean Corpuscular Volume 101 fL (80-100); Mean Platelet Volume 8.9 fL (9.1-12.4); NEUTROPHILS ABSOLUTE AUTO 15.97 K/mm3 (1.96-9.15); NEUTROPHILS PERCENT AUTO 92 % (41-73); NRBC ABSOLUTE 0.02 K/mm3 (0.00-0.02); NRBC Auto 0.1 /100 WBC (0.0-0.2); Platelet Count 348 K/mm3 (150-400); RDW Coefficient Variation 14.3 % (11.7-14.2); RDW Standard Deviation 53.1 fL (35.1-46.3); Red Blood Cell Count 2.55 M/mm3 (3.80-5.20); White Blood Cell Count 17.31 K/mm3 (4.00-11.30)
[2018-09-11 04:21] LABS: International Normalized Ratio 3.11; Prothrombin Time Results 29.7 Sec (9.7-11.5)
--- NOTE | 2018-09-11 04:21 | NUR ---
PATIENT ANXIOUS AND CONFUSED UPON ENTERING ROOM. PATIENT AFEBRILE. PATIENT GIVEN PRN PAIN MEDICATIONS FOR COMPLAINT OF 10/10 PAIN IN ABDOMEN AND SIDES OF LOWER BACK. PATIENT REMAINS SATTING WELL ON 2 L NC. PATIENT IN SR, HR IN THE 90S. BP STABLE. LEVOPHED ON SB. NO OTHER ACUTE CHANGES TO NOTE ON AT THIS TIME. WILL CONTINUE TO MONITOR.
[2018-09-11 04:26] LABS: Alanine Aminotransfer (ALT/SGP 23 U/L (12-78); Albumin, Blood 1.9 g/dL (3.4-5.0); Albumin/Globulin Ratio 0.7 (0.8-1.8); Alk Phos 102 U/L (50-136); Anion Gap 8 mmol/L (6-16); Aspartate Aminotrans (AST/SGOT 39 U/L (12-37); Bilirubin, Total 0.5 mg/dL (0.1-1.0); Blood Urea Nitrogen 11 mg/dL (8-24); Bun/Creatinine Ratio 24.8 (12.0-20.0); CO2, Blood 25 mmol/L (21-32); Calcium, Blood 7.5 mg/dL (8.5-10.1); Chloride, Blood 108 mmol/L (98-108); Creatinine, Blood 0.44 mg/dL (0.40-1.00); Globulin, Blood 2.6 g/dL (2.2-4.0); Glomerular Filtration Rate >60 (60-); Glucose, Blood 74 mg/dL (70-99); Potassium, Blood 3.5 mmol/L (3.5-5.5); Sodium, Blood 141 mmol/L (136-145); Total Protein, Blood 4.5 g/dL (6.4-8.2)
--- NOTE | 2018-09-11 06:43 | NUR ---
SHIFT SUMMARY PATIENT SLEPT FAIRLY WELL DURING NIGHT. PATIENT ALERT AND ORIENTED X 4 AT BEGINNING OF SHIFT BUT BECAME VERY ANXIOUS AND CONFUSED DURING THE NIGHT. PATIENT WOKE UP AGAIN SHORT TIME AGO AND WAS SLIGHTLY CONFUSED BUT WAS REORIENTED EASILY AND IS CALM, COOPERATIVE AND PLEASANT. PATIENT REMAINED AFEBRILE. PATIENT RECEIVED PRN PAIN MEDICATIONS FOR COMPLAINTS OF PAIN IN ABDOMEN, SIDES OF LOWER BACK AND L HIP. PATIENT ABLE TO HELP REPOSITION SELF IN BED T/O NIGHT. PATIENT REMAINED SATTING 90% AND GREATER ON 2 L NC. PATIENT REMAINED IN NSR, HR 80S TO 90S. LEVOPHED DRIP RANGED FROM SB TO 8 MCG/ MINUTE DURING SHIFT. LEVOPHED CURRENTLY ON SB. PATIENT DID NOT HAVE BM THIS SHIFT. PATIENT DID NOT COMPLAIN OF ANY NAUSEA. PATIENT REMAINED TOLERATING CLEAR LIQUID DIET WELL. BAEZ DRAINED ADEQUATE AMOUNT OF DARK YELLOW URINE. NO CHANGE NOTED TO SKIN. NS INFUSING AT 125 MLS/ HOUR. BED LOW, CALL LIGHT IN REACH. REPORT WILL BE GIVEN TO ASSUMING DAY SHIFT NURSE SHORTLY.
--- NOTE | 2018-09-11 09:49 | NUR ---
0730: CARE ASSUMED, ASSESSMENT COMPLETED. PT RESTING IN BED, VSS, HRR AT THIS TIME, BP WNL, LEVOPHED REMAINS ON STANDBY. PT REPORTS DIFFUSE ABD PAIN, LEFT HIP PAIN, AND LEFT FLANK PAIN 6/10, WILL MEDICATE PER ORDERS. DRESSING TO LEFT HIP WITH SMALL AMOUNT OF SEROSANGUINEOUS DRAINAGE, LLE ELEVATED ON PILLOW, O2 2L/NC, SPO2 LOW 90'S. BED ALARM ON. 0845: PT REPORTS ABD PAIN 10/10 AFTER EATING JELLO DESPITE OXYCODONE, MEDICATED WITH MS PER ORDERS. PT REPOSITIONED IN BED FOR COMFORT, LLE REMAINS ELEVATED. 0930: PT RESTING IN BED, REPORTS PAIN HAS IMPROVED, IS SLIGHTLY CONFUSED AFTER MS ADMINISTERED, REMAINS COOPERATIVE. BED ALARM ON. SP02 88-91% 4L/NC. MAP 65, LEVOPHED REMAINS OFF, WILL CONTINUE TO MONITOR.
--- NOTE | 2018-09-11 11:34 | NUR ---
1125: PT BACK FROM SYSTEM TRAINER, ALERT AND ORIENTED X4, VSS. HEPARIN AND TPA OFF, SHEATH REMOVED FROM LEFT POPLITEAL VEIN, DRESSING DRY AND INTACT WITH SCANT DRAINAGE, WILL CONTINUE TO MONITOR, NO HEMATOMA OR PAIN NOTED. PULSES TO LLE REMAIN UNCHANGED, LLE PWD, LEFT KNEE STRAIGHT. PT'S AT BEDSIDE.
--- NOTE | 2018-09-11 13:11 | NUR ---
1055: PT CONFUSED AND AGITATED AFTER MORPHINE. PT AT BEDSIDE, DAVIDS.
--- NOTE | 2018-09-11 13:11 | NUR ---
PT REMAINS CONFUSED BUT IS NO LONGER AGITATED. SAT UP IN BED AND ATE SOME LUNCH, IS NOW WATCHING TV AND TALKING NONSENSE. PT REORIENTED FREQUENTLY WHICH DOES NOT SEEM TO HELP, VISUAL/AUDIO HALLUCNATIONS ABOUT PEOPLE AND THINGS BEING IN THE ROOM. EVELYN CALLED AND TALKED WITH PT BRIEFLY. PT IS NOT C/O PAIN OR NAUSEA AT THIS TIME, VSS, MAPS COSISTETLY ABOVE 65. MIDODRINE ADMINISTERED, PT TOLERATED WELL.
--- NOTE | 2018-09-11 13:21 | NUR ---
Pt. is lying in bed resting she reports to be doing fine, encouraged her and offered some prayers
--- NOTE | 2018-09-11 14:08 | NUR ---
TALKED WITH DR. MARTINEZ REGARDING LAB VALUES, CONFUSION, AND ABD PAIN, NEW ORDERS RECIEVED. PT SLEEPING AT THIS TIME, VSS. HR CURRENTLY SINUS 90'S WITH OCC. PVC'S.
--- NOTE | 2018-09-11 14:45 | NUR ---
CT COMPLETED. PT REMAINS CONFUSED, NO AGRESSIVE OR COMBATIVE BEHAVIORS, NOT FOLLOWING DIRECTIONS, CONTINUES TO HALLUCINATE. PT RESTING WITH EYES CLOSED BUT TALKING AND ANSWERING HALLUCINATIONS. ENCOURAGED TO NAP, PT AGREES.
--- NOTE | 2018-09-11 16:32 | NUR ---
1515: PT REPORTS NAUSEA, PALLOR NOTED, VSS. ZOFRAN ADMINISTERED PER ORDERS. 1600: PT DENIES NAUSEA AT THIS TIME.
--- NOTE | 2018-09-11 17:15 | NUR ---
PT C/O 12/19 BACK/L HIP/ABD PAIN. REMAINS CONFUSED, TALKING INCESSANTLY TO HALLUNIATIONS. OXYCODONE AND MIDODRINE ADMINISTERED. BP AT THIS TIME 144/64, MAP 85, HR 100, SINUS WITH PVC'S. INTERMITTENTLY IN AFIB TODAY.
--- NOTE | 2018-09-11 18:30 | NUR ---
DR. MARTINEZ AWARE OF CT RESULTS AND CONTINUED CONFUSION, OXYCODONE DISCONTINUED PER ORDERS. PT SLEEPING AT THIS TIME, VSS. HRR WITH PVC'S, BRIEF PERIODS OF OCCASIONAL AFIB THAT CONVERTS WITHOUT INTERVENTION. PT REMAINS VERY CONFUSED AND CONTINUES TO HALLUCINATE, TALKING TO PEOPLE WHO ARE NOT IN THE ROOM. NO BM TODAY, PT C/O INTERMITTENT NAUSEA, DENIES C/O AT THIS TIME. LEVO OFF THIS SHIFT, MAPS >65, NS AT 125ML/HR INFUSING. REPORT TO ONCOMING SHIFT.
--- NOTE | 2018-09-11 19:45 | NUR ---
ANGUS CROWELL, [place]ON[place], CALLED TO INFORM THAT PATIENT IS EXTREMELY ANXIOUS, CONFUSED, IS HALLUCINATING, TRYING TO PULL EVERYTHING OFF OF HER AND TRYING TO CRAWL OUT OF BED. INFORMED THAT PATIENT HAS BEEN UNABLE TO BE CALMED WITH REASSURANCE AND REORIENTATION. INFORMED THAT PATIENT BECOMING SOB WITH DECREASE IN O2 SATS FROM EXERTION. ORDERS RECEIVED.
--- NOTE | 2018-09-11 20:33 | NUR ---
INITIAL ASSESSMENT PATIENT VERY AGITATED, ANXIOUS, CONFUSED UPON ENTERING ROOM. PATIENT HAVING VISUAL HALLUCINATIONS. NONSENSICAL SPEECH AND WORD SALAD NOTED. PATIENT TRYING TO CRAWL OUT OF BED, PULLING 02 AND VS MONITORING LINES OFF. PATIENT NOT RESPONDING TO REASSURANCE OR REORIENTATION. BRONSON GRECO NOTIFIED PATIENT DESATTING FROM INCREASED EXERTION AND WORK OF BREATHING. OT DOSE OF 4 MG IV HALDOL RECEIVED. HALDOL GIVEN AND PATIENT SLEEPING SHORT TIME AFTER. PATIENT SATTING 90% AND GREATER ON 2 L NC. LUNGS CLEAR T/O, DIMINISHED IN LOWER LOBES. SOB WITH EXERTION. PATIENT IN NSR, HR 80S TO 90S. LEVOPHED ON SB WHEN CAME ON SHIFT BUT NOW INFUSING AT 4 MCG/ MINUTE POST IV HALDOL ADMINISTRATION. ANTIEMBOLISM STOCKINGS IN PLACE. ABDOMEN MODERATELY DISTENDED, TENDER, SOFT, HYPOACTIVE BS NOTED. LAST BM WAS ON 09/09 AND WAS LIQUID BROWN. PRN MIRALAX GIVEN. PATIENT ON CLEAR LIQUID DIET. BAEZ DRAINING DARK YELLOW URINE. DRESSING INTACT TO RECENT LEFT HIP REPLACEMENT SURGERY SITE. SCATTERED BRUISES NOTED T/O BODY. PATIENT MISSING R INDEX FINGER. 1+ EDEMA NOTED TO LLE. NS INFUSING AT 125 MLS/ HOUR. BED LOW, CALL LIGHT IN REACH. WILL CONTINUE TO MONITOR PATIENT FREQUENTLY THROUGHOUT SHIFT.
--- NOTE | 2018-09-12 00:43 | NUR ---
DR. HARDIN CALLED PATIENT ANXIOUS, CONFUSED, SEEING PEOPLE IN ROOM THAT ARE NOT THERE, AND IS SCREAMING OUT IN PAIN STATING THAT HER STOMACH IS KILLING HER. OT DOSE OF 25 MCG IV FENTANYL OBTAINED. WILL CONTINUE TO MONITOR.
--- NOTE | 2018-09-12 01:00 | NUR ---
PATIENT WOKE VERY ANXIOUS, AGITATED AND CONFUSED AGAIN. PATIENT CONTINUES TO HAVE VISUAL HALLUCINATIONS, NONSENSICAL SPEECH AND WORD SALAD. PATIENT SCREAMING OUT IN PAIN ABOUT HER STOMACH. PATIENT OFFERED PRN TYLENOL BUT CONTINUED TO STATE THAT SHE "CANNOT TAKE IT BECAUSE SHE IS IN SO MUCH PAIN", EVEN THOUGH NURSE INFORMED THAT THE TYLENOL WOULD HELP WITH HER PAIN. DR. HARDIN CALLED AND INFORMED OF SITUATION. OT ORDER OF 25 MCG FENTANYL RECEIVED AND GIVEN. PATIENT NOW SLEEPING SOUNDLY WITH NO SIGNS OF PAIN. PATIENT AFEBRILE. PATIENT SATTING 90% AND GREATER ON 1 L NC. PATIENT IN NSR, HR IN THE 90S. BP STABLE. LEVOPHED CURRENTLY ON SB. NO OTHER ACUTE CHANGES TO NOTE ON AT THIS TIME. WILL CONTINUE TO MONITOR.
[2018-09-12 04:17] LABS: Hematocrit 23.5 % (33.0-51.0); Hemoglobin 7.4 g/dL (11.5-16.0); Mean Corpuscular HGB 31.4 pg (26.0-34.0); Mean Corpuscular HGB Conc 31.5 g/dL (31.5-36.5); Mean Corpuscular Volume 100 fL (80-100); Mean Platelet Volume 8.9 fL (9.1-12.4); Platelet Count 378 K/mm3 (150-400); RDW Coefficient Variation 14.5 % (11.7-14.2); RDW Standard Deviation 52.8 fL (35.1-46.3); Red Blood Cell Count 2.36 M/mm3 (3.80-5.20); White Blood Cell Count 14.44 K/mm3 (4.00-11.30)
[2018-09-12 04:31] LABS: International Normalized Ratio 2.89; Prothrombin Time Results 27.8 Sec (9.7-11.5)
[2018-09-12 04:33] LABS: Anion Gap 4 mmol/L (6-16); Blood Urea Nitrogen 8 mg/dL (8-24); Bun/Creatinine Ratio 18.6 (12.0-20.0); CO2, Blood 30 mmol/L (21-32); Calcium, Blood 7.4 mg/dL (8.5-10.1); Chloride, Blood 110 mmol/L (98-108); Creatinine, Blood 0.43 mg/dL (0.40-1.00); Glomerular Filtration Rate >60 (60-); Glucose, Blood 106 mg/dL (70-99); Potassium, Blood 3.1 mmol/L (3.5-5.5); Sodium, Blood 144 mmol/L (136-145)
--- NOTE | 2018-09-12 05:09 | NUR ---
PATIENT ANXIOUS, CONFUSED, YELLING/ SCREAMING UPON WAKING. PATIENT COMPLAINING OF STOMACH PAIN. PATIENT IS NOW RESTING QUIETLY IN BED AFTER RECEIVING PRN TYLENOL. PATIENT AFEBRILE. PATIENT REMAINS SATTING WELL ON 1 L NC. PATIENT IN SR, HR IN THE 80S. BP STABLE. LEVOPHED CURRENTLY AT 4 MCG/ MINUTE. NO OTHER ACUTE CHANGES TO NOTE ON AT THIS TIME. WILL CONTINUE TO MONITOR.
--- NOTE | 2018-09-12 05:54 | NUR ---
DR. HARDIN INFORMED OF PATIENT'S AM POTASSIUM LEVEL OF 3.1 AND HEMOGLOBIN LEVEL OF 7.4. INFORMED TO CONTINUE FOLLOWING HEMOGLOBIN LEVEL AND ORDER OBTAINED FROM POTASSIUM REPLACEMENT.
--- NOTE | 2018-09-12 06:40 | NUR ---
SHIFT SUMMARY PATIENT SLEPT ON AND OFF T/O SHIFT. PATIENT VERY AGITATED, ANXIOUS, CONFUSED WHEN AWAKE. PATIENT HAD MORE VISUAL HALLUCINATIONS, NONSENSICAL SPEECH AND WORD SALAD FIRST HALF OF SHIFT. PATIENT BECAME MORE AGITATED, YELLING AND CURSING AT STAFF SECOND HALF OF SHIFT. PATIENT GIVEN OT DOSE OF 4MG HALDOL TOWARD BEGINNING OF SHIFT VERY ANXIOUS, PULLING AT ESSENTIAL LINES, CORDS, AND O2, TRYING TO CRAWL OUT OF BED, AND DESATTING FROM EXERTION. PATIENT CONTINUED TO COMPLAIN OF SEVERE ABDOMINAL PAIN WHEN AWAKE. PATIENT GIVEN OT DOSE OF 25 MCG FENTANYL AND PRN TYLENOL OT. PATIENT SLEPT SHORT TIME AFTER ADMINISTRATION OF BOTH PAIN MEDS. PATIENT REMAINED AFEBRILE. PATIENT REMAINED SATTING 90% AND GREATER ON 1 TO 2 L NC. PATIENT NSR, HR 80S TO 90S. LEVOPHED RANGED FROM SB TO 14 TO KEEP MAPS 65 AND GREATER. PATIENT APPEARS TO BE HYPOTENSIVE MOSTLY WHEN SLEEPING SOUNDLY. PATIENT DID NOT HAVE BM THIS SHIFT BUT DID HAVE SOME FLATULENCE. PRN MIRALAX GIVEN LAST NIGHT HAS NOT HAD BM SINCE 09/09. BAEZ REMAINED DRAINING DARK YELLOW URINE. NO CHANGE IN SKIN. NS INFUSING AT 125 MLS/ HOUR. PATIENT RECEIVING POTASSIUM FOR LEVEL OF 3.1. PATIENT HAS NO SIGNS OF PAIN AT THIS TIME. BED LOW, CALL LIGHT IN REACH. WILL BE GIVING REPORT TO ONCOMING DAY SHIFT NURSE SHORTLY.
--- NOTE | 2018-09-12 07:24 | NUR ---
CARE ASSUMED, PT SLEEPING AT THIS TIME, BUE RESTRAINTS ON. HR 70'S NSR, BP 99/60, MAP 69, LEVO 9MCG/MIN, SPO2 96% 1L/NC. POTASSIUM INFUSING PER ORDERS.
--- NOTE | 2018-09-12 08:50 | NUR ---
RESTRAINTS REMOVED AT 0800, PT CONFUSED BUT PLEASANT AND COOPERATIVE. RESTRAINTS REMAIN OFF, PT SITTING UP IN BED EATING BREAKFAST. TOLERATED PO MEDICATIONS WELL. MEDICATED WITH TYLENOL FOR 4/10 LEFT HIP PAIN, DENIES OTHER NEEDS. MAP 80, LEVO ON STANDBY.
--- NOTE | 2018-09-12 09:52 | NUR ---
MAP 59, LEVO RESUMED AT 3MCG/MIN, MIDODRINE ADMINISTERED. PT AWAKE, ALERT AND ORIENTED X4, APOLOGIZING FOR BEHAVIORS WHILE CONFUSED, REPORTS SHE WAS "OUT OF MY HEAD" YESTERDAY. PT APPROPRIATE AND COOPERATIVE AT THIS TIME, DENIES NEEDS, STATES PAIN IS MINIMAL.
--- NOTE | 2018-09-12 12:25 | NUR ---
PT SLEEPING, APPEARS TO BE RESTING COMFORTABLY. BP STABLE W/A, BECOMES HYPOTENSIVE WHILE SLEEPING, MAP 62, LEVO INCREASED TO 6MCG/MIN, WILL CONTINUE TO TITRATE REQURED. SPO2 97% 1L/NC, O2 TURNED OFF, SPO2 DECREASED TO 88%, RESUMED AT 1L/NC, SPO2 NOW 94%. ABD SOFT WITH BT, REMAINS TENDER.
--- NOTE | 2018-09-12 13:16 | NUR ---
PT WOKEN FOR 1300 MED, REPORTS NAUSEA, MEDICATED WITH ZOFRAN. PT CONFUSED AND HALLUCINATING AT THIS TIME, TALKING TO HER GRANDDAUGHTER WHO IS NOT PRESENT. PT REMAINS PLEASANT AND COOPERATIVE, RESTRAINTS REMAIN OFF AT THIS TIME.
--- NOTE | 2018-09-12 17:37 | NUR ---
PT REASSESSED, EDEMA NOTED IN BILAT HANDS, PITTING EDEMA NOTED TO LEFT HIP. DRESSING CHANGED, NO FOUL DRAINAGE, HEAT, OR REDNESS NOTED AT INCISION SITE. BEDBATH GIVEN, PT CONFUSED AT THIS TIME, ATTEMPTING TO PULL MONITOR CORDS AND O2 OFF, CALLING OUT, ANXIOUS AND UNCOOPERATIVE, C/O LEFT HIP PAIN, MEDICATED WITH TYLENOL. 5 MINUTES AFTER TYLENOL ADMINISTERED, PT IS SITTING UP IN BED EATING DINNER, ALERT AND ORIENTED X4, COMPLETELY APPROPRIATE AND COOPERATIVE. DR MARTINEZ NOTIFIED OF PT'S MENTAL STATUS AND INTERMITTENT CONFUSION/APPROPRIATE BEHAVIORS, NO NEW ORDERS AT THIS TIME. PT WATCHING TV, DENIES NEEDS.
--- NOTE | 2018-09-12 18:44 | NUR ---
PT SLEEPING AT THIS TIME, MAP 65, LEVO INFUSING AT 2MCG/MIN. LASIX ADMINISTERED PER ORDERS, WILL ADMINISTER ZOSYN. SPO2 96% 1L/NC, HR 70'S NSR WITH OCCASIONAL PVC. PT C/O DIFFUSE ABD PAIN, LEFT FLANK/BACK PAIN, AND LEFT HIP PAIN INTERMITTENTLY T/O DAY, RESPONDED WELL TO TYLENOL. REPORT TO ONCOMING NURSE.
--- NOTE | 2018-09-12 19:20 | NUR ---
ASSUMED CARE BEDSIDE REPORT RECIEVED. PT IS RESTING QUIETLY UPON ENTERING ROOM. PT DROWSEY AND DIFFICULT TO AWAKEN. WHEN AWAKENED PT IS ALERT, ORIENTED, AND IRRITABLE. PT COMPLAINS OF PAIN TO ABD WHEN MOVING IN BED. VITAL SIGNS STABLE WITH LEVOPHED AT 2 MCG/MIN. PT ON 1L O2 NC. PT WITH DRESSING C/D/I TO LEFT HIP SURGICAL SITE. CL TO RIJ C/D/I, NS INFUSING AT 125 ML/HR. BAEZ IN PLACE WITH DARK YELLOW OUTPUT NOTED. NO FAMILY AT BEDSIDE. WILL CONTINUE TO MONITOR.
[2018-09-13 03:54] LABS: Hematocrit 24.7 % (33.0-51.0); Hemoglobin 7.5 g/dL (11.5-16.0); Mean Corpuscular HGB 30.7 pg (26.0-34.0); Mean Corpuscular HGB Conc 30.4 g/dL (31.5-36.5); Mean Corpuscular Volume 101 fL (80-100); Mean Platelet Volume 9.1 fL (9.1-12.4); Platelet Count 450 K/mm3 (150-400); RDW Coefficient Variation 14.7 % (11.7-14.2); Red Blood Cell Count 2.44 M/mm3 (3.80-5.20); White Blood Cell Count 13.12 K/mm3 (4.00-11.30)
[2018-09-13 04:07] LABS: International Normalized Ratio 3.76; Prothrombin Time Results 35.3 Sec (9.7-11.5)
[2018-09-13 04:08] LABS: Anion Gap 2 mmol/L (6-16); Blood Urea Nitrogen 7 mg/dL (8-24); Bun/Creatinine Ratio 14.3 (12.0-20.0); CO2, Blood 32 mmol/L (21-32); Calcium, Blood 7.2 mg/dL (8.5-10.1); Chloride, Blood 111 mmol/L (98-108); Creatinine, Blood 0.49 mg/dL (0.40-1.00); Glomerular Filtration Rate >60 (60-); Glucose, Blood 96 mg/dL (70-99); Potassium, Blood 3.4 mmol/L (3.5-5.5); Sodium, Blood 145 mmol/L (136-145)
--- NOTE | 2018-09-13 06:18 | NUR ---
SHIFT SUMMARY PT DOING WELL THIS AM. PT IS MORE ALERT, ORIENTED, AND CONVERSING APPROPRIATELY. PT HAS COMPLAINED OF SOME PAIN THROUGHOUT THE NIGHT, PT MED PER EMAR. AT TIMES PT HAS BEEN YELLING OUT OF ROOM AND SPEAKING NONSENSICALLY, BUT PT IS APPROPRIATE AT THIS TIME. LEVOPHED TITRATED BETWEEN 2-6 MCG/MIN THROUGHOUT THE SHIFT. VSS AT THIS TIME WITH LEVOPHED AT 2 MCG/MIN. NS INFUSING AT 125 ML/HR. CL TO RIGHT IJ IS C/D/I. BAEZ IN PLACE WITH GOOD URINE OUTPUT THIS SHIFT. WILL CONTINUE TO MONITOR AND REPORT OFF TO ONCOMING RN.
--- NOTE | 2018-09-13 08:15 | NUR ---
ASSESSMENT- PT AWAKE, ALERT, ABLE TO ANSWER QUESTIONS. ANXIOUS, ASKS MULTIPLE REQUESTS AT ONCE. EXPLAINED PLAN OF CARE, REASSURANCE GIVEN. POSITIONED FOR BREAKFAST, ABLE TO FEED SELF CLEAR LIQUIDS, ABLE TO TAKE PILLS. NO SOB, DOES DESATURATE TO 88% WITHOUT OXYGEN, IMPROVES TO 93% WITH 1 L/MIN NC. LUNGS CLEAR, DECREASED BASES. RIJ CENTRAL LINE DI WITH NS 125 CC/HR, LEVOPHED GTT AT 2 MCG/MIN, BP GOOD-LEVOPHED OFF. C/O ABDOMINAL DISCOMFORT ACROSS ABDOMEN, ABDOMEN LARGE, SOFT WITH BOWEL SOUNDS, WILL MONITOR. UO VIA BAEZ. NO N/V. SWELLING LEFT UPPER LEG. JANAK HOSE ON.
--- NOTE | 2018-09-13 13:44 | NUR ---
PT UP TO CHAIR WITH ASSISTANCE FROM PHYSICAL THERAPIST. UP FOR TWO HOURS, BATH DONE, ABLE TO STAND WITH WALKER AND TRANSFER BACK TO BED WITH ASSIST, DID WELL. BP STABLE. TOLERATING CLEAR LIQUIDS, NO N/V
--- NOTE | 2018-09-13 18:09 | NUR ---
PT ABLE TO SLEEP THIS AFTERNOON, AWAKENS EASILY. BLOOD PRESSURE DROPPED WHEN ASLEEP, RECOVERED WHEN AWOKE AND ACTUALLY ELEVATED AT TIMES. DENIES ANY PAIN. STATES IS WORRIED ABOUT LIFE, DAUGHTER, DECISIONS, EMOTIONAL SUPPORT GIVEN AND PT STATES FEELS BETTER BUT DOES HAVE ANXIETY. RIJ INTACT WITH NS AT 125 CC/HR. UO GOOD VIA BAEZ. TOLERATING CLEAR LIQUIDS WITHOUT NAUSEA OR PAIN.
--- NOTE | 2018-09-13 19:30 | NUR ---
ASSUMED CARE REPORT RECIEVED. PT IS RESTING IN BED QUIETLY. PT AWAKENS TO VERBAL STIMULI AND IS ALERT, ORIENTED, AND FOLLOWING DIRECTIONS APPROPRIATELY. PT IS CALM AND COOPERATIVE. PT DENIES PAIN OR DISCOMFORT AT THIS TIME. VITAL SIGNS STABLE WITH PT ON 1L O2 NC. CL TO RIJ C/D/I WITH NS INFUSING AT 125 ML/HR. BAEZ IN PLACE WITH YELLOW OUTPUT NOTED. DRESSING TO LEFT HIP IS C/D/I. WILL CONTINUE TO MONITOR.
[2018-09-14 03:36] LABS: Hematocrit 24.5 % (33.0-51.0); Hemoglobin 7.5 g/dL (11.5-16.0); Mean Corpuscular HGB 30.6 pg (26.0-34.0); Mean Corpuscular HGB Conc 30.6 g/dL (31.5-36.5); Mean Corpuscular Volume 100 fL (80-100); Mean Platelet Volume 9.1 fL (9.1-12.4); NRBC ABSOLUTE 0.04 K/mm3 (0.00-0.02); NRBC Auto 0.3 /100 WBC (0.0-0.2); Platelet Count 447 K/mm3 (150-400); RDW Coefficient Variation 14.8 % (11.7-14.2); RDW Standard Deviation 54.7 fL (35.1-46.3); Red Blood Cell Count 2.45 M/mm3 (3.80-5.20); White Blood Cell Count 12.19 K/mm3 (4.00-11.30)
[2018-09-14 03:55] LABS: Anion Gap 3 mmol/L (6-16); Blood Urea Nitrogen 5 mg/dL (8-24); Bun/Creatinine Ratio 10.8 (12.0-20.0); CO2, Blood 32 mmol/L (21-32); Calcium, Blood 7.5 mg/dL (8.5-10.1); Chloride, Blood 110 mmol/L (98-108); Creatinine, Blood 0.46 mg/dL (0.40-1.00); Glomerular Filtration Rate >60 (60-); Glucose, Blood 84 mg/dL (70-99); Potassium, Blood 3.4 mmol/L (3.5-5.5); Sodium, Blood 145 mmol/L (136-145)
[2018-09-14 03:57] LABS: Prothrombin Time Results 41.6 Sec (9.7-11.5)
[2018-09-14 03:58] LABS: International Normalized Ratio 4.5
--- NOTE | 2018-09-14 06:13 | NUR ---
SHIFT SUMMARY NO ACUTE CHANGES THIS SHIFT. PT HAS REMAINED ALERT, ORIENTED, AND PLEASANT WHEN AWAKE. PT SLEEPT THROUGHOUT MOST OF THE NIGHT. PT COMPLAINED OF ABD PAIN ONCE THIS SHIFT, PT MED PER EMAR. VITAL SIGNS HAVE REMAINED STABLE WITH LEVOPHED ON STANDBY THROUGHOUT THE SHIFT. NS INFUSING AT 125 ML/HR. CL TO RIGHT IJ C/D/I. PT WITH BAEZ IN PLACE WITH GOOD URINE OUTPUT NOTED. PT ASSISTED WITH REPOSITIONING WELL. DRESSING TO LEFT HIP REMAINS C/D/I. PT ON 1L O2 NC. WILL CONTINUE TO MONITOR AND REPORT OFF TO ONCOMING RN.
--- NOTE | 2018-09-14 10:46 | NUR ---
DR. GEIGER CAME BY FOR CONSULT, NO NEW ORDERS AT THIS TIME. DR. MARTINEZ CALLED INQUIRING ABOUT HEMATOLOGY CONSULT FOR PT. HE CONSULTED [facility], BUT HE IS ON VACATION. CALLED ANSWERING SERVICE FOR DR. VANESSA BUT HE IS OUT OF TOWN UNTIL SUNDAY. ANSWERING SERVICE TO NOTIFY DR. BIRCH IF HE IS AVAILABLE FOR CONSULT. PT HAD A BM, BUT MISSED GETTING SAMPLE FOR ANTONINA ANOTHER NURSE HELPED CLEAN PT UP AND DIDN'T KNOW ABOUT SAMPLE.
--- NOTE | 2018-09-14 12:50 | NUR ---
REASSESSMENT: PT HAS REMAINED ALERT AND ORIENTED. SHE WORKED WITH PHYSICAL THERAPY GETTING UP TO THE CHAIR. SHE SAT UP IN THE CHAIR FOR ABOUT AN HOUR THEN GOT UP OT THE COMMMODE THEN BACK TO BED. PT WAS SIGNIFICANTLY WEAKER GETTING BACK TO BED REQUIRING 2 PESON ASSIST. LUNGS REMAIN CLEAR, BP STABLE. DENIES ANY NEED FOR PAIN MEDICATION AT THIS TIME. CONTINUING TO MONITOR.
[2018-09-14 13:43] LABS: Stool Occult Blood Guaiac 1 Pos (Neg)
--- NOTE | 2018-09-14 15:21 | NUR ---
SPOKE WITH DR. MARTINEZ AND RECEIVED OK FOR PT TO BE PCU STATUS.
--- NOTE | 2018-09-14 16:24 | NUR ---
SHIFT SUMMARY PT HAD NO ACUTE EVENTS THIS SHIFT. SHE REMAINS ALERT AND ORIENTED AND OFF OF LEVOPHED WITH SBP IN THE 130S. SHE IS SR, LUNGS CLEAR, ON HER HOME LEVEL OF 02 AT 2L/NC. SHE HAS BEEN OUT OF BED TODAY, BUT WAS QUITE WEAK RETURNING TO BED. BAEZ DRAINING YELLOW URINE. LOOSE/LIQUID BMS, SAMPLE SENT FOR GUIAIC. NO OTHER CHANGES THIS SHIFT.
[2018-09-14 16:40] LABS: Free Thyroxine 0.86 ng/dL (0.70-1.60)
[2018-09-14 16:57] LABS: Thyroid Stimulating Hormone 1.04 uIU/mL (0.360-4.800)
[2018-09-15 04:20] LABS: Hematocrit 24.5 % (33.0-51.0); Hemoglobin 7.2 g/dL (11.5-16.0)
[2018-09-15 04:31] LABS: Anion Gap 4 mmol/L (6-16); Blood Urea Nitrogen 4 mg/dL (8-24); Bun/Creatinine Ratio 8.3 (12.0-20.0); CO2, Blood 32 mmol/L (21-32); Calcium, Blood 7.3 mg/dL (8.5-10.1); Chloride, Blood 110 mmol/L (98-108); Creatinine, Blood 0.48 mg/dL (0.40-1.00); Glomerular Filtration Rate >60 (60-); Glucose, Blood 74 mg/dL (70-99); Potassium, Blood 3.5 mmol/L (3.5-5.5); Sodium, Blood 146 mmol/L (136-145)
[2018-09-15 04:34] LABS: International Normalized Ratio 3.77; Prothrombin Time Results 35.4 Sec (9.7-11.5)
--- NOTE | 2018-09-15 06:03 | NUR ---
SHIFT SUMMARY: PATIENT EXPERIENCED 3X OF LARGE LIQUID BM THIS SHIFT, NO ABDOMINAL PAIN, ALL OTHER VSS.
--- NOTE | 2018-09-15 16:15 | NUR ---
SHIFT SUMMARY PT RESTING IN BED THROUGHOUT THE DAY. VSS. ALERT AND ORIENTED X3, BUT FORGETFUL AT TIMES. C/O PAIN TO LEFT LEG, MEDICATED WITH PRN PAIN MEDS, WHICH SEEMED TO HELP. PT REQUESTING TO USE THE TYLENOL MORE THAN THE OXYCODONE, STATES IT MAKES HER SLEEPY. LUNG SOUNDS DIMINISHED THROUGHOUT. NSR RATE 86 ON MONITOR. BAEZ DRAINING DARK YELLOW URINE. LEFT HIP DRSG CDI. 2+ PITTING EDEMA TO LEFT ANKLE, NON PITTING EDEMA TO BILATERAL LEGS. JANAK HOSE IN PLACE. PT HAD MULTIPLE BROWN LIQUID STOOLS THROUGHOUT SHIFT. WILL CONTINUE TO MONITOR.
--- NOTE | 2018-09-15 17:00 | NUR ---
CENTRAL LINE REMOVED PER PROTOCOL. PT TOLERATED WELL.
--- NOTE | 2018-09-15 17:36 | NUR ---
TRANSFER NOTE PT STABLE FOR TRANSFER TO MEDICAL FLOOR. REPORT CALLED TO DONNY WYATT ON MEDICAL FLOOR.
--- NOTE | 2018-09-15 18:01 | NUR ---
PT TRANSFERED VIA BED TO MEDICAL FLOOR WITH PERSONAL BELONGINGS.
--- NOTE | 2018-09-15 18:38 | NUR ---
PT ARRIVED TO THE MEDICAL FLOOR FROM THE ICU VIA BED, A/OX3, PLEASANT AND COOPERATIVE, THE PT WAS ORIENTED TO THE ROOM LAYOUT AND CALL SYSTEM, CALL LIGHT IN REACH, REPORT WAS TAKEN FROM OSMAN WYATT PT APPEARS TO BE BREATHING EASILY ON O2 AT THIS TIME, THE PT WAS MEDICATED FOR PAIN AT THIS TIME
[2018-09-16 04:48] LABS: Hematocrit 27.7 % (33.0-51.0); Hemoglobin 8.2 g/dL (11.5-16.0)
[2018-09-16 05:02] LABS: International Normalized Ratio 2.82; Prothrombin Time Results 27.2 Sec (9.7-11.5)
[2018-09-16 05:10] LABS: Anion Gap 5 mmol/L (6-16); Blood Urea Nitrogen 2 mg/dL (8-24); Bun/Creatinine Ratio 4.2 (12.0-20.0); CO2, Blood 34 mmol/L (21-32); Calcium, Blood 7.6 mg/dL (8.5-10.1); Chloride, Blood 105 mmol/L (98-108); Creatinine, Blood 0.48 mg/dL (0.40-1.00); Glomerular Filtration Rate >60 (60-); Glucose, Blood 70 mg/dL (70-99); Potassium, Blood 3.1 mmol/L (3.5-5.5); Sodium, Blood 144 mmol/L (136-145)
--- NOTE | 2018-09-16 06:13 | NUR ---
SHIFT SUMMARY PATIENT APPEARED VERY ANXIOUS T/O SHIFT. VERY CONCERNED ABOUT THE REMOVAL OF HER CENTRAL LINE WHILE IN ICU. PATIENT MENTIONED DRESSING ON RIGHT NECK/COLLAR BONE MANY TIMES BUT STATED HE WANTED IT LEFT IN PLACE. PATIENT COMPLAINED OF A HEADACHE AND WAS TREATED WITH MEDICATIONS (SEE EMAR) PATIENT HAD 1 EPISODE OF LOOSE BOWEL INCONTINENCE. NO S/S OF ACUTE DISTRESS. WCTM
--- NOTE | 2018-09-16 07:21 | NUR ---
ASSUMED CARE OF PT- BEDSIDE REPORT COMPLETED WITH NIGHT RN RADHA. PER REPORT PT HAD LEFT HIP REPLACEMENT 7 DAYS AGO AND HAS BEEN FEELING ILL SINCE. PT ON IV ABX AT THIS TIME. PT VERY ANXIOUS, CENTRAL LINE WAS REMOVED FROM HER LEFT NECK YESTERDAY AND IT WORRIES HER VERY MUCH (PER REPORT). PT APPERAS TO BE ALERT AND ORIENTED, SHE IS A Q2 TURN AND HAS ONLY BEEN OUT OF BED WITH PHYSICAL THERAPY, BAEZ IN PLACE. PER REPORT PT HAD A LARGE LOOSE INCONTINENT STOOL ONCE LAST NIGHT. PT AWAKE AND PARTICIPATED IN REPORT.
--- NOTE | 2018-09-16 18:06 | NUR ---
SHIFT SUMMARY- PT HAS HAD A GOOD DAY. SHE WORKED WITH PHYSICAL THERAPY TO GET UP INTO A CHAIR WITH HER LEFT LEG PROPPED UP ON ANOTHER CHAIR. (NO RECLINERS AVAILABLE AT THIS TIME). PT HAS GOTEN UP TO THE BEDSIDE COMODE ONCE WITH STAFF AFTER HER BAEZ CATHETER WAS DC'D PER PROTOCOL. PT IV IS SL AFTER THE IV ABX ARE DONE INFUSING THIS EVENING. PT ON 2L O2 NC THIS IS HER HOME DOSE. PLAN IS FOR THE PT TO DC TO SNF FOR REHAB PRIOR TO GOING HOME WITH CAREGIVERS. PT ALERT AND ORIENTED WITH SOME FORGETFULLNESS, SHE CAN BECOME VERY ANXIOUS, BUT IF STAFF EXPLAIN THINGS WELL SHE SEEMS TO CALM EASILY. PT WAS JUST ASSISTED BACK TO BED FROM THE CHAIR ONE PERSON MODERATE ASSIST WITH A FWW AND GAIT BELT. PT NOW IN BED WITH THE CALL LIGHT IN REACH. PT CALLS APPROPRIATELY.
[2018-09-17 05:15] LABS: Hematocrit 29.1 % (33.0-51.0); Hemoglobin 8.6 g/dL (11.5-16.0)
[2018-09-17 05:30] LABS: International Normalized Ratio 1.98; Prothrombin Time Results 19.7 Sec (9.7-11.5)
[2018-09-17 05:47] LABS: Anion Gap 3 mmol/L (6-16); Blood Urea Nitrogen 2 mg/dL (8-24); Bun/Creatinine Ratio 4.5 (12.0-20.0); CO2, Blood 39 mmol/L (21-32); Calcium, Blood 7.9 mg/dL (8.5-10.1); Chloride, Blood 100 mmol/L (98-108); Creatinine, Blood 0.45 mg/dL (0.40-1.00); Glomerular Filtration Rate >60 (60-); Glucose, Blood 90 mg/dL (70-99); Potassium, Blood 3.3 mmol/L (3.5-5.5); Sodium, Blood 142 mmol/L (136-145)
--- NOTE | 2018-09-17 06:18 | NUR ---
SHIFT SUMMARY PATIENT STATES SHE FEELS BETTER THAN PREVIOUS NIGHT. PATIENT UP TO BSC WITH 1 PERSON MIN ASSIST/GAIT BELT/FWW. PATIENT ALSO HAD 2 LARGE INCONTINENCE OF URINE. IV IN R AC PATENT. PATIENT BECAME SLIGHTLY CONFUSED ABOUT SITUATION REGARDING HER SITUATION LEADING TO HOSPITAL STAY BUT WAS EASILY REDIRECTED AND "WOKE UP". PATIENT MEDICATED (SEE MAR) FOR PAIN. WILL CONTINUE TO MONITOR
--- NOTE | 2018-09-17 13:06 | NUR ---
Education provided per pt request. Information on General, Healthful Diet provided. Pt states intention to follow suggestions.
--- NOTE | 2018-09-17 13:58 | NUR ---
Met pt. lying in bed she reports to be doing, encouraged pt. ,offered prayers and spiritual support.
--- NOTE | 2018-09-17 17:10 | NUR ---
SHIFT SUMMARY: PT A/O X 4 THIS SHIFT WITH C/O PAIN TO LEFT HIP AND STATES ORDERED PAIN MED WAS EFFECTIVE. PT ATTEMPTED TO TRANSFER FROM CHAIR TO BEDSIDE COMMODE THIS AM WITH X 2 MAX ASSIST WITH GAIT BELT AND WALKER AND WAS UNABLE TO STAND UP. PT WAS NOTIFIED AND SIT TO STAND LIFT WAS USED TO TRANSFER PT. DR REYES WAS MADE AWARE OF THIS AND DC WAS PUT ON HOLD UNTIL TOMORROW. PT AGREED THAT ANOTHER NIGHT WOULD HELP HER GAIN MORE STREGTH/REST AND STATED THAT SHE FELT IT WOULD BE VERY HELPFUL TO GO TO A SNF WHEN DCD FOR A SHORT TIME FOR MORE THERAPY, THIS WAS COMMUNICATED TO CASE MANAGEMENT. PT HAS BEEN RESTING IN BED MOST OF SHIFT WITH VISITORS ON AND OFF. PT HAS BEEN MOSTLY INCONTINENT THIS SHIFT, USING BEDPAN AT TIMES. PT CALLS FOR HELP APPROPRIATELY WHEN NEEDED.
--- NOTE | 2018-09-17 17:48 | NUR ---
PT REPORTS PAIN WITH URINATION AND BURNING. DR MARTINEZ NOTIFIED AND RECEIVED A V.O. TO OBTAIN A UA WITH C/S. ORDERS IMPLEMENTED AND PT IS AGREEABLE.
[2018-09-17 18:24] LABS: Source, Urine Clean Catch
[2018-09-17 18:31] LABS: Bilirubin, Urine Neg (Neg); Blood, Urine 5+ (Neg); Glucose Qualitative, Urine Neg (Neg); Ketones, Urine 3+ (Neg); Leukocyte Esterase, Urine 3+ (Neg); Nitrite, Urine Neg (Neg); Protein, Urine 1+ (Neg); Urobilinogen, Urine NORM (Normal)
[2018-09-17 18:45] LABS: Appearance, Urine Hazy (Clear); Color, Urine Yellow (P-Yellow)
[2018-09-17 18:46] LABS: Amorphous Light (0-Heavy); Bacteria Many /hpf; Red Blood Cells, Urine 25-50 /hpf (0-2); Squamous Epithelial Cells Mod /hpf (Few)
[2018-09-18 05:12] LABS: Anion Gap 6 mmol/L (6-16); Blood Urea Nitrogen 2 mg/dL (8-24); Bun/Creatinine Ratio 4.6 (12.0-20.0); CO2, Blood 35 mmol/L (21-32); Chloride, Blood 101 mmol/L (98-108); Creatinine, Blood 0.44 mg/dL (0.40-1.00); Glomerular Filtration Rate >60 (60-); Glucose, Blood 79 mg/dL (70-99); International Normalized Ratio 1.56; Potassium, Blood 3.9 mmol/L (3.5-5.5); Prothrombin Time Results 15.9 Sec (9.7-11.5); Sodium, Blood 142 mmol/L (136-145)
[2018-09-18] MEDS ORDERED: ACET325 PO (11:38)
[2018-09-18] MEDS ORDERED: FERSU300 PO (11:48)
[2018-09-18] MEDS ORDERED: Vsl#3 Capsule1 EACH PO (11:49)
[2018-09-18] MEDS ORDERED: PANT20 PO (11:49)
[2018-09-18] MEDS ORDERED: Pyridium100 MG PO (11:49)
[2018-09-18] MEDS ORDERED: CEFU500T30 PO (11:50)
[2018-09-18] MEDS ORDERED: MIRALAX17 GM PO (11:50)
--- NOTE | 2018-09-18 15:06 | NUR ---
REPORT CALLED TO SONDRA AT [facility] @ 15:05
--- NOTE | 2018-09-18 15:37 | NUR ---
PT DCD TO [facility] VIA [facility]. ALL BELONGINGS SENT WITH PT AND DC ORDERS SENT WITH TRANSPORT. REPORT CALLED AND PT STABLE UPON DC.
[2018-10-24] MEDS ORDERED: ACETAMINOPHEN650 MG PO (10:11)
[2018-10-24] MEDS ORDERED: Lipitor20 MG PO (10:12)
[2018-10-24] MEDS ORDERED: Tambocor100 MG PO (10:12)
[2018-10-24] MEDS ORDERED: Ferrous Sulfat325 M2 PO (10:12)
[2018-10-24] MEDS ORDERED: PANT20 PO (10:13)
[2018-10-24] MEDS ORDERED: FURO20 PO (10:13)
[2018-10-24] MEDS ORDERED: POTA10T PO (10:13)
[2018-10-24] MEDS ORDERED: OXYC5 PO (10:13)
[2018-10-24] MEDS ORDERED: Coumadin5 MG PO (10:14)
[2018-10-24] MEDS ORDERED: Ropinirole HCl1 MG PO (10:14)
[2018-10-24] MEDS ORDERED: VOLTAREN100 GM TOP (10:14)
[2018-10-24] MEDS ORDERED: ONDA4 PO (10:17)
[2018-10-24] MEDS ORDERED: Zofran4 MG PO (10:18)
[2018-10-24] MEDS ORDERED: LOSA50 PO (10:18)
[2018-10-24] MEDS ORDERED: BUSP5 PO (10:18)
== END 2018-09-18 15:37 | DRG 871 ==
LOC: ER 15:00 → ICUW 17:07 → MEDS 17:07 → PCU 17:07 → ICUW 09-09 02:30 → MEDS 09-15 18:08 → ENPENDDIS 09-18 10:11 → MEDS 09-18 15:37
PROVIDERS: Emergency Medicine; Internal Medicine; Internal Medicine Hematology & Oncology; ADMIT Internal Medicine
PROC: 02HV33Z Insertion of Infusion Device into Superior Vena Cava, Percutaneous Approach (ICD-10-PCS; principal; 2018-09-09)
PROC: 3E033XZ Introduction of Vasopressor into Peripheral Vein, Percutaneous Approach (ICD-10-PCS; 2018-09-09)
DX: A41.9 Sepsis, unspecified organism (principal); R65.21 Severe sepsis with septic shock; N39.0 Urinary tract infection, site not specified; D64.9 Anemia, unspecified; I48.91 Unspecified atrial fibrillation; K52.9 Noninfective gastroenteritis and colitis, unspecified; I10 Essential (primary) hypertension; E87.6 Hypokalemia; D69.6 Thrombocytopenia, unspecified; I95.9 Hypotension, unspecified; Z96.642 Presence of left artificial hip joint
CPT/HCPCS: 0097U; 36415; 36556; 51702; 71045; 74176; 74177; 80048; 80053; 81001; 82272; 82607; 82728; 82746; 83010; 83540; 83550; 83605; 83615; 83690; 84439; 84443; 84484; 85014; 85018; 85025; 85027; 85610; 85730; 86850; 86900; 86901; 87040; 87086; 93005; 93010; 94760; 96361-59; 96365-59; 96366-59; 96375-59; 96376-59; 97110; 97116; 97162; 97530; 99285-25; A9270; C1751; C9113; J0696; J0744; J1170; J1630; J1940; J2270; J2405; J2543; J2916; J3010; J3480; J7030; J7050; J7060; Q9967

== ENCOUNTER 2018-09-20 19:57 | Emergency (ER) | payer OTHER ==
[~2018-09-20] VITALS: Ht 167.6 cm; Wt 90.7 kg
[~2018-09-20 19:57] MED LIST changes: +CEFU500T30 PO; +FERSU300 PO; +MIRALAX17 GM PO; +Pyridium100 MG PO; +Vsl#3 Capsule1 EACH PO
[2018-09-20] MEDS ORDERED: Ropinirole HCl1 MG (20:12)
[2018-09-20 21:01] LABS: BASOPHILS ABSOLUTE AUTO 0.04 K/mm3 (0.00-0.23); BASOPHILS PERCENT AUTO 1 % (0-2); EOSINOPHILS ABSOLUTE AUTO 0.06 K/mm3 (0.00-0.68); EOSINOPHILS PERCENT AUTO 1 % (0-6); Hematocrit 26.5 % (33.0-51.0); Hemoglobin 8.1 g/dL (11.5-16.0); IMMATURE GRAN PERCENT AUTO 1 % (0-1); LYMPHOCYTES ABSOLUTE AUTO 1.19 K/mm3 (0.84-5.20); LYMPHOCYTES PERCENT AUTO 16 % (21-46); MONOCYTES ABSOLUTE AUTO 0.87 K/mm3 (0.16-1.47); MONOCYTES PERCENT AUTO 12 % (4-13); Mean Corpuscular HGB 31.5 pg (26.0-34.0); Mean Corpuscular HGB Conc 30.6 g/dL (31.5-36.5); Mean Platelet Volume 8.8 fL (9.1-12.4); NEUTROPHILS ABSOLUTE AUTO 5.24 K/mm3 (1.96-9.15); NEUTROPHILS PERCENT AUTO 70 % (41-73); Platelet Count 573 K/mm3 (150-400); RDW Coefficient Variation 17.7 % (11.7-14.2); RDW Standard Deviation 64.9 fL (35.1-46.3); Red Blood Cell Count 2.57 M/mm3 (3.80-5.20)
[2018-09-20 21:02] LABS: Mean Corpuscular Volume 103 fL (80-100)
[2018-09-20 21:18] LABS: Alanine Aminotransfer (ALT/SGP 14 U/L (12-78); Albumin, Blood 2.3 g/dL (3.4-5.0); Albumin/Globulin Ratio 0.9 (0.8-1.8); Alk Phos 147 U/L (50-136); Anion Gap 6 mmol/L (6-16); Aspartate Aminotrans (AST/SGOT 30 U/L (12-37); Bilirubin, Total 0.4 mg/dL (0.1-1.0); Blood Urea Nitrogen 6 mg/dL (8-24); Bun/Creatinine Ratio 9.8 (12.0-20.0); CO2, Blood 33 mmol/L (21-32); Calcium, Blood 7.8 mg/dL (8.5-10.1); Chloride, Blood 103 mmol/L (98-108); Creatinine, Blood 0.61 mg/dL (0.40-1.00); Globulin, Blood 2.7 g/dL (2.2-4.0); Glomerular Filtration Rate >60 (60-); Glucose, Blood 92 mg/dL (70-99); Potassium, Blood 3.7 mmol/L (3.5-5.5); Sodium, Blood 142 mmol/L (136-145)
[2018-10-24] MEDS ORDERED: ACETAMINOPHEN650 MG PO (10:11)
[2018-10-24] MEDS ORDERED: Ferrous Sulfat325 M2 PO (10:12)
[2018-10-24] MEDS ORDERED: Tambocor100 MG PO (10:12)
[2018-10-24] MEDS ORDERED: Lipitor20 MG PO (10:12)
[2018-10-24] MEDS ORDERED: POTA10T PO (10:13)
[2018-10-24] MEDS ORDERED: FURO20 PO (10:13)
[2018-10-24] MEDS ORDERED: OXYC5 PO (10:13)
[2018-10-24] MEDS ORDERED: PANT20 PO (10:13)
[2018-10-24] MEDS ORDERED: Ropinirole HCl1 MG PO (10:14)
[2018-10-24] MEDS ORDERED: VOLTAREN100 GM TOP (10:14)
[2018-10-24] MEDS ORDERED: Coumadin5 MG PO (10:14)
[2018-10-24] MEDS ORDERED: ONDA4 PO (10:17)
[2018-10-24] MEDS ORDERED: LOSA50 PO (10:18)
[2018-10-24] MEDS ORDERED: BUSP5 PO (10:18)
[2018-10-24] MEDS ORDERED: Zofran4 MG PO (10:18)
== END 2018-09-20 23:50 | disposition home or self-care (01) ==
LOC: ER 19:57
PROVIDERS: Emergency Medicine
DX: K62.5 Hemorrhage of anus and rectum (principal); I10 Essential (primary) hypertension; E78.00 Pure hypercholesterolemia, unspecified; I48.91 Unspecified atrial fibrillation; J44.9 Chronic obstructive pulmonary disease, unspecified; Z87.891 Personal history of nicotine dependence; Z88.8 Allergy status to other drugs, medicaments and biological substances; Z79.899 Other long term (current) drug therapy
CPT/HCPCS: 36415; 80053; 85025; 86850; 86900; 86901; 99283

== ENCOUNTER 2018-11-01 07:40 | Day surgery (SDC) | payer OTHER ==
[~2018-11-01] VITALS: Ht 162.6 cm; Wt 83.5 kg
[~2018-11-01 07:40] MED LIST changes: +ACETAMINOPHEN650 MG PO; +BUSP5 PO; +Coumadin5 MG PO; +Ferrous Sulfat325 M2 PO; +Lipitor20 MG PO; +OXYC5 PO; +Ropinirole HCl1 MG; +Tambocor100 MG PO; +Zofran4 MG PO
== END 2018-11-01 10:30 | disposition home or self-care (01) ==
LOC: ORSCSDS 07:40
PROVIDERS: Internal Medicine Gastroenterology
PROC: 0DB68ZX Excision of Stomach, Via Natural or Artificial Opening Endoscopic, Diagnostic (ICD-10-PCS; principal; 2018-11-01 09:15)
PROC: 0DBP8ZX Excision of Rectum, Via Natural or Artificial Opening Endoscopic, Diagnostic (ICD-10-PCS; principal; 2018-11-01 09:15)
PROC: 0DB58ZX Excision of Esophagus, Via Natural or Artificial Opening Endoscopic, Diagnostic (ICD-10-PCS; principal; 2018-11-01 09:15)
PROC: 0DBN8ZX Excision of Sigmoid Colon, Via Natural or Artificial Opening Endoscopic, Diagnostic (ICD-10-PCS; principal; 2018-11-01 09:15)
PROC: 0D758ZZ Dilation of Esophagus, Via Natural or Artificial Opening Endoscopic (ICD-10-PCS; principal; 2018-11-01 09:15)
DX: D50.9 Iron deficiency anemia, unspecified (principal); D12.5 Benign neoplasm of sigmoid colon; K63.3 Ulcer of intestine; K21.0 Gastro-esophageal reflux disease with esophagitis; K44.9 Diaphragmatic hernia without obstruction or gangrene; K29.70 Gastritis, unspecified, without bleeding; R13.14 Dysphagia, pharyngoesophageal phase; I48.91 Unspecified atrial fibrillation; Z79.01 Long term (current) use of anticoagulants; J44.9 Chronic obstructive pulmonary disease, unspecified; K75.81 Nonalcoholic steatohepatitis (NASH); Z87.891 Personal history of nicotine dependence; Z99.81 Dependence on supplemental oxygen; Z79.899 Other long term (current) drug therapy
CPT/HCPCS: 82947; 88305; 88342; J2704; J7120

== ENCOUNTER 2019-02-10 07:20 | Day surgery (SDC) | payer OTHER ==
[~2019-02-10] VITALS: Ht 162.6 cm; Wt 189.9 kg
[~2019-02-10 07:20] MED LIST changes: +Citalopram HBr20 MG PO; +FLECAINIDE ACE150 MG PO; +PRENATAL TABLE1 EAC2 PO; +SUCR1 PO; +VITAMIN D32000 UNIT PO; +WARF10 PO
--- NOTE | 2019-02-10 08:11 | NUR ---
02/10/19 0811 Kalie Garcia 1 IV MISS IN RH BY JEREMÍAS VALVE 1 GOOD IV IO RW BY JEREMÍAS PT TOW
--- NOTE | 2019-02-10 09:27 | NUR ---
02/10/19 0927 Natalie Crane UNABLE TO COMPLETE COLONOSCOPY DUE TO STRICTURE IN LEFT COLON
== END 2019-02-10 09:58 | disposition home or self-care (01) ==
LOC: ORSCSDS 07:20
PROVIDERS: Internal Medicine Gastroenterology
PROC: 0DB88ZX Excision of Small Intestine, Via Natural or Artificial Opening Endoscopic, Diagnostic (ICD-10-PCS; principal; 2019-02-10 09:00)
DX: R10.9 Unspecified abdominal pain (principal); K63.3 Ulcer of intestine; K56.600 Partial intestinal obstruction, unspecified as to cause; K57.30 Diverticulosis of large intestine without perforation or abscess without bleeding; K64.8 Other hemorrhoids; I10 Essential (primary) hypertension; G47.33 Obstructive sleep apnea (adult) (pediatric); K21.9 Gastro-esophageal reflux disease without esophagitis; D64.9 Anemia, unspecified; E66.01 Morbid (severe) obesity due to excess calories; Z68.32 Body mass index [BMI] 32.0-32.9, adult; Z87.891 Personal history of nicotine dependence; Z79.899 Other long term (current) drug therapy
CPT/HCPCS: 88305; J2405; J2704; J7120

== ENCOUNTER 2019-12-10 14:52 | Inpatient (IN) | payer OTHER ==
[~2019-12-10] VITALS: Ht 165.1 cm; Wt 83.0 kg
[~2019-12-10 14:52] MED LIST changes: +BIOTIN1 MG PO; +CARV6.25 PO; +FLUT1DIS5 INH; +GINGKO BILOBA PO; +IRON PO; +Nitroglycerin0.4 MG SL; +VITAMIN D310 MC4 PO
--- NOTE | 2019-12-15 12:22 | NUR ---
Surgical site prepped with 2% Chlorhexidine cloth wipe. History, Chart, Medications and Allergies reviewed before start of procedure.Lungs clear T/O to Auscultation. Patient confirms NPO status and agrees with scheduled surgery. PT TOOK CHLORHEXADINE SHOWERS X5DAYS. AND USED OINTMENT IN NOSE X5DAYS. WARM BLANKETS PROVIDED. PT STATES SHE IS UNABLE TO VOID SINCE THIS MORNING. PT GIVEN PO MEDS, NOSE MEDICAL PATHOLOGIST AND MOUTHWASH. ALL BELONINGS STOWED UNDER BED. VANCOMYCIN STARTED.
--- NOTE | 2019-12-15 18:35 | NUR ---
PT TO ROOM IN OWN BED. PT ASSISTED WITH ADL'S PRN. PT HAS ICE TO R SHOULDER, BARELY ABLE TO WIGGLE FINGERS. DENIES CP/SOB. REPORTS WEARING O2 AT HS NORMALLY. PAS IN PLACE. PT HAS IMMOBILIZER/SLING IN PLACE (BLACK ON WITH BALL ATTATCHED). PT REPORTS UNDERSTANDING OF CALL LIGHT. PT SPEECH CLEAR. PT GIVEN COFFEE PER PT REQ. PPX4. WILL REPORT TO HS RN. IVF IN PLACE.
[2019-12-16 05:59] LABS: BASOPHILS ABSOLUTE AUTO 0.03 K/mm3 (0.00-0.23); BASOPHILS PERCENT AUTO 0 % (0-2); EOSINOPHILS PERCENT AUTO 0 % (0-6); Hematocrit 37.5 % (33.0-51.0); Hemoglobin 11.8 g/dL (11.5-16.0); IMMATURE GRAN ABSOLUTE AUTO 0.09 K/mm3 (0.00-0.10); IMMATURE GRAN PERCENT AUTO 1 % (0-1); LYMPHOCYTES ABSOLUTE AUTO 0.82 K/mm3 (0.84-5.20); LYMPHOCYTES PERCENT AUTO 6 % (21-46); MONOCYTES ABSOLUTE AUTO 0.59 K/mm3 (0.16-1.47); MONOCYTES PERCENT AUTO 4 % (4-13); Mean Corpuscular HGB 29.5 pg (26.0-34.0); Mean Corpuscular HGB Conc 31.5 g/dL (31.5-36.5); Mean Corpuscular Volume 94 fL (80-100); Mean Platelet Volume 10.3 fL (9.1-12.4); NEUTROPHILS ABSOLUTE AUTO 12.63 K/mm3 (1.96-9.15); NEUTROPHILS PERCENT AUTO 89 % (41-73); Platelet Count 186 K/mm3 (150-400); RDW Coefficient Variation 14.4 % (11.7-14.2); RDW Standard Deviation 49.7 fL (35.1-46.3); White Blood Cell Count 14.16 K/mm3 (4.00-11.30)
[2019-12-16 06:23] LABS: Anion Gap 5 mmol/L (6-16); Blood Urea Nitrogen 15 mg/dL (8-24); Bun/Creatinine Ratio 26.2 (12.0-20.0); CO2, Blood 28 mmol/L (21-32); Calcium, Blood 8.5 mg/dL (8.5-10.1); Chloride, Blood 108 mmol/L (98-108); Creatinine, Blood 0.57 mg/dL (0.40-1.00); Glomerular Filtration Rate >60 (60-); Glucose, Blood 131 mg/dL (70-99); Magnesium, Blood 2.2 mg/dL (1.6-2.4); Potassium, Blood 4.7 mmol/L (3.5-5.5); Sodium, Blood 141 mmol/L (136-145)
--- NOTE | 2019-12-16 06:57 | NUR ---
SHIFT SUMMARY: VSS, NO ACUTE EVENTS OVERNIGHT. 2L O2 VIA NC OVERNIGHT PER BASELINE. AQUACELL TO RIGHT SHOULDER C/D&I, SLING IN PLACE. SHE REPORTS THAT HER ARM IS "WAKING UP". BRISK CAPILLARY REFILL. IV TO L FOREARM PATENT. SHE IS TOLERATING PO INTAKE WELL. SHE IS URINATING IN THE BEDSIDE COMMODE WITHOUT DIFFICULTY. SHE IS A 2 PERSON TRANSFER D/T DIZZINESS. SHE IS ABLE TO MOVE AND REPOSITION HERSELF IN BED INDEPENDENTLY. SHE REPORTS DIFFICULTIES WITH SHORT-TERM MEMORY FOR WHICH SHE TAKES AN [id number] MEDICATION. SHE IS LYING IN BED WITH HER CALL LIGHT IN REACH. WILL REPORT TO DAY SHIFT RN.
--- NOTE | 2019-12-16 08:12 | NUR ---
MICHELLE HERE TO SEE PT.
--- NOTE | 2019-12-16 08:12 | NUR ---
PT DISCUSSED VERTIGO WITH MICHELLE ADDISON). MICHELLE REPORTS WILL DISCUSS WITH DR SHANE VANESSA. PT REPORTS HAVING MULT YEARS AGO BEFORE. PT REPORTS VERTIGO WITH INITAL MOVEMENT THEN REPORTS BETTER AFTER SITTING/STANDING. PT UP WITH ASSIST. CALL LIGHT IN REACH. PT BEEN ASSISTED WITH ADL'S PRN.
[2019-12-16] MEDS ORDERED: ROXICODONE5 MG PO (09:09)
--- NOTE | 2019-12-16 11:28 | NUR ---
PT RECENTLY WORKED WITH THERAPY. PT DID NOT CLEAR THERAPY AT THIS TIME.
--- NOTE | 2019-12-16 16:14 | NUR ---
SHIFT SUMMARY PT EATING AND DRINKING, VOIDING, PASSING GAS. PT CONT TO HAVE VERTIGO WHEN STANDING. PT DENIES VERTIGO WHEN IN RECLINER OR BED. PT BEEN ASSISTED WITH ADL'S PRN. PT USING BSC TO VOID WITH ASSIST TO BSC. PT USING CALL LIGHT APPR. AWARE OF VERTIGO.
--- NOTE | 2019-12-16 19:00 | NUR ---
DR NOTIFIED PER PT REQ TO HAVE SOME OF HER HOME MEDICATIONS THAT DID NOT APPEAR TO BE ORDERED. SEE ORDERS.
--- NOTE | 2019-12-17 04:35 | NUR ---
SHIFT SUMMARY POD#2. AAOX4/ANXIOUS. DISCOMFORT CONTROLLED WITH SCHEDULED TORADOL/TYLENOL + 2 ROXICODONE Q4H. NO NAUSEA/EMESIS. DRESSING TO RIGHT SHOULDER WITH IMMOBILIZER C/D/I. DENIES N/T ALL EXTREMITIES, MOVES FINGERS WELL BUE, PULSES PALPABLE ALL EXTREMITIES. PT REPORTING VERTIGO DECREASED WITH POSITIONAL CHANGES. UP TO BSC, SBA TO TRANSFER. PT RESTING WELL THIS AM WITH CALL LIGHT IN REACH.
--- NOTE | 2019-12-17 11:17 | NUR ---
Met. Pt. sitting in a chair and watching .TV , pt repots to be doing fine encouraged pt. and offered prayers.
--- NOTE | 2019-12-17 13:45 | NUR ---
BIENVENIDO IN PHYSICAL THERAPY CLEARED PT TO GO HOME WITH HOME HEALTH. 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 PT DID WELL WITH THERAPY, HAS DENIED DIZZINESS AND ABLE TO USE RAMA-WALKER. MEDS FAXED TO [facility] AT THIS TIME.
--- NOTE | 2019-12-17 15:01 | NUR ---
DISCHARGE: PACKET PRINTED AND PT EDUCATED. PT SILVER RECOVERY OPERATOR HERE TO PICK PT UP AND ALSO EDUCATED BY PHYSICAL THERAPY ON ACTIVITY RESTRICTIONS/MOBILITY. SCRIPT GIVEN TO PT. LEFT UNIT VIA WHEELCHAIR WITH SELINA BARKSDALE AT ABOUT 1445.
== END 2019-12-17 14:52 | disposition home or self-care (01) | DRG 483 ==
LOC: SURS 12-15 09:20 → PRE IP 12-15 11:15 → SURS 12-15 18:17
PROVIDERS: ADMIT Orthopaedic Surgery
PROC: 0RRJ00Z Replacement of Right Shoulder Joint with Reverse Ball and Socket Synthetic Substitute, Open Approach (ICD-10-PCS; principal; 2019-12-15 12:15)
PROC: 0RPJ04Z Removal of Internal Fixation Device from Right Shoulder Joint, Open Approach (ICD-10-PCS; 2019-12-15 12:15)
DX: M12.811 Other specific arthropathies, not elsewhere classified, right shoulder (principal); M19.011 Primary osteoarthritis, right shoulder; I10 Essential (primary) hypertension; I48.91 Unspecified atrial fibrillation; J44.9 Chronic obstructive pulmonary disease, unspecified; Z99.81 Dependence on supplemental oxygen; K21.9 Gastro-esophageal reflux disease without esophagitis; K76.0 Fatty (change of) liver, not elsewhere classified; Z96.642 Presence of left artificial hip joint; Z87.891 Personal history of nicotine dependence; G56.31 Lesion of radial nerve, right upper limb; R42 Dizziness and giddiness
CPT/HCPCS: 73030; 80048; 83735; 85025; 88300; 97110; 97116; 97162; 97166; 97530; 97535; A9270; C1776; C9113; J0171; J0690; J0735; J1100; J1885; J2250; J2405; J2704; J2795; J3010; J3370; J7120; Q0163; Q2038

== ENCOUNTER 2020-05-24 00:19 | Day surgery (SDC) | payer OTHER ==
--- NOTE | 2020-05-24 11:09 | NUR ---
LAB DRAWS ALL DRAWN FROM [facility].
[2020-06-09] MEDS ORDERED: CARV6.25 PO (11:25)
[2020-06-09] MEDS ORDERED: FLECAINIDE ACE150 M1 PO (11:26)
[2020-06-09] MEDS ORDERED: FURO20 PO (11:26)
[2020-06-09] MEDS ORDERED: POTA10T PO (11:27)
[2020-06-09] MEDS ORDERED: ANORO ELLIPTA1 EACH INH (11:27)
[2020-06-09] MEDS ORDERED: JANTOVEN5 M1 PO (11:28)
== END 2020-05-24 10:35 | disposition home or self-care (01) ==
LOC: ATC 00:19
DX: E27.40 Unspecified adrenocortical insufficiency (principal); I12.9 Hypertensive chronic kidney disease with stage 1 through stage 4 chronic kidney disease, or unspecified chronic kidney disease; N18.2 Chronic kidney disease, stage 2 (mild)
CPT/HCPCS: 36415; 80400; 82533; 96372; J0834

== ENCOUNTER 2020-05-29 06:09 | Emergency (ER) | payer OTHER ==
[~2020-05-29] VITALS: Ht 162.6 cm; Wt 90.7 kg
[2020-05-29 07:09] LABS: BASOPHILS ABSOLUTE AUTO 0.05 K/mm3 (0.00-0.23); BASOPHILS PERCENT AUTO 1 % (0-2); EOSINOPHILS ABSOLUTE AUTO 0.06 K/mm3 (0.00-0.68); EOSINOPHILS PERCENT AUTO 1 % (0-6); Hematocrit 42.8 % (33.0-51.0); Hemoglobin 13.8 g/dL (11.5-16.0); IMMATURE GRAN ABSOLUTE AUTO 0.01 K/mm3 (0.00-0.10); IMMATURE GRAN PERCENT AUTO 0 % (0-1); LYMPHOCYTES ABSOLUTE AUTO 1.34 K/mm3 (0.84-5.20); LYMPHOCYTES PERCENT AUTO 23 % (21-46); MONOCYTES ABSOLUTE AUTO 0.37 K/mm3 (0.16-1.47); MONOCYTES PERCENT AUTO 6 % (4-13); Mean Corpuscular HGB 28.9 pg (26.0-34.0); Mean Corpuscular HGB Conc 32.2 g/dL (31.5-36.5); Mean Corpuscular Volume 90 fL (80-100); NEUTROPHILS ABSOLUTE AUTO 4.06 K/mm3 (1.96-9.15); NEUTROPHILS PERCENT AUTO 69 % (41-73); Platelet Count 218 K/mm3 (150-400); RDW Standard Deviation 49.9 fL (35.1-46.3); Red Blood Cell Count 4.77 M/mm3 (3.80-5.20); White Blood Cell Count 5.89 K/mm3 (4.00-11.30)
[2020-05-29 07:20] LABS: International Normalized Ratio 2.68; Prothrombin Time Results 27.1 Sec (9.7-11.5)
[2020-05-29 08:03] LABS: Troponin I <0.015 ng/mL (0.000-0.040)
[2020-05-29 08:04] LABS: Alanine Aminotransfer (ALT/SGP 23 U/L (12-78); Albumin/Globulin Ratio 1.4 (0.8-1.8); Alk Phos 116 U/L (50-136); Anion Gap 6 mmol/L (6-16); Aspartate Aminotrans (AST/SGOT 18 U/L (12-37); Bilirubin, Total 0.5 mg/dL (0.1-1.0); Blood Urea Nitrogen 25 mg/dL (8-24); Bun/Creatinine Ratio 30.3 (12.0-20.0); CO2, Blood 27 mmol/L (21-32); Calcium, Blood 8.8 mg/dL (8.5-10.1); Chloride, Blood 110 mmol/L (98-108); Creatinine, Blood 0.83 mg/dL (0.40-1.00); Globulin, Blood 2.9 g/dL (2.2-4.0); Glomerular Filtration Rate >60 (60-); Glucose, Blood 96 mg/dL (70-99); Potassium, Blood 4.2 mmol/L (3.5-5.5); Sodium, Blood 143 mmol/L (136-145); Total Protein, Blood 6.9 g/dL (6.4-8.2)
[2020-06-09] MEDS ORDERED: CARV6.25 PO (11:25)
[2020-06-09] MEDS ORDERED: FURO20 PO (11:26)
[2020-06-09] MEDS ORDERED: FLECAINIDE ACE150 M1 PO (11:26)
[2020-06-09] MEDS ORDERED: ANORO ELLIPTA1 EACH INH (11:27)
[2020-06-09] MEDS ORDERED: POTA10T PO (11:27)
[2020-06-09] MEDS ORDERED: JANTOVEN5 M1 PO (11:28)
== END 2020-05-29 09:05 | disposition home or self-care (01) ==
LOC: ER 06:09
PROVIDERS: Emergency Medicine
DX: R55 Syncope and collapse (principal); S09.90XA Unspecified injury of head, initial encounter; I10 Essential (primary) hypertension; E78.00 Pure hypercholesterolemia, unspecified; I48.91 Unspecified atrial fibrillation; Z87.891 Personal history of nicotine dependence; Z79.01 Long term (current) use of anticoagulants; Z79.899 Other long term (current) drug therapy
CPT/HCPCS: 36415; 70450; 80053; 82947; 84484; 85025; 85610; 93005; 93010; 99284-25

== ENCOUNTER 2020-06-16 12:17 | Day surgery (SDC) | payer OTHER ==
[~2020-06-16] VITALS: Ht 162.6 cm; Wt 86.2 kg
[~2020-06-16 12:17] MED LIST changes: +FLECAINIDE ACE150 M1 PO; +JANTOVEN5 M1 PO
== END 2020-06-16 14:25 | disposition home or self-care (01) ==
LOC: ORSCSDS 12:17
PROVIDERS: Internal Medicine Gastroenterology
PROC: 0DBM8ZX Excision of Descending Colon, Via Natural or Artificial Opening Endoscopic, Diagnostic (ICD-10-PCS; principal; 2020-06-16 13:45)
PROC: 0DBL8ZX Excision of Transverse Colon, Via Natural or Artificial Opening Endoscopic, Diagnostic (ICD-10-PCS; principal; 2020-06-16 13:45)
PROC: 0DBK8ZX Excision of Ascending Colon, Via Natural or Artificial Opening Endoscopic, Diagnostic (ICD-10-PCS; principal; 2020-06-16 13:45)
DX: Z86.010 Personal history of colon polyps (principal); D12.2 Benign neoplasm of ascending colon; D12.3 Benign neoplasm of transverse colon; D12.4 Benign neoplasm of descending colon; K56.699 Other intestinal obstruction unspecified as to partial versus complete obstruction; K57.30 Diverticulosis of large intestine without perforation or abscess without bleeding; K64.1 Second degree hemorrhoids; Z87.891 Personal history of nicotine dependence; I48.91 Unspecified atrial fibrillation; Z79.01 Long term (current) use of anticoagulants; J44.9 Chronic obstructive pulmonary disease, unspecified; G47.33 Obstructive sleep apnea (adult) (pediatric); I25.10 Atherosclerotic heart disease of native coronary artery without angina pectoris; E11.9 Type 2 diabetes mellitus without complications; I10 Essential (primary) hypertension; E78.5 Hyperlipidemia, unspecified; Z79.899 Other long term (current) drug therapy; I25.2 Old myocardial infarction; Z86.73 Personal history of transient ischemic attack (TIA), and cerebral infarction without residual deficits; K75.81 Nonalcoholic steatohepatitis (NASH)
CPT/HCPCS: 88305; J2704; J7120

== ENCOUNTER 2020-08-23 06:50 | Emergency (ER) | payer OTHER ==
[~2020-08-23] VITALS: Ht 177.8 cm; Wt 81.7 kg
[2020-08-23 07:09] LABS: Source, Urine Clean Catch
[2020-08-23 07:15] LABS: Bilirubin, Urine Neg (Neg); Blood, Urine 5+ (Neg); Glucose Qualitative, Urine Neg (Neg); Ketones, Urine Neg (Neg); Leukocyte Esterase, Urine Neg (Neg); Nitrite, Urine Neg (Neg); Protein, Urine 1+ (Neg); Specific Gravity, Urine 1.005 (1.003-1.022); Urobilinogen, Urine NORM (Normal)
[2020-08-23] MEDS ORDERED: CEFDINIR300 M4 PO (07:20)
[2020-08-23] MEDS ORDERED: ATORVASTATIN CA20 MG PO (07:20)
[2020-08-23 07:22] LABS: BASOPHILS ABSOLUTE AUTO 0.05 K/mm3 (0.00-0.23); BASOPHILS PERCENT AUTO 1 % (0-2); EOSINOPHILS ABSOLUTE AUTO 0.06 K/mm3 (0.00-0.68); EOSINOPHILS PERCENT AUTO 1 % (0-6); Hematocrit 47.7 % (33.0-51.0); Hemoglobin 15.1 g/dL (11.5-16.0); IMMATURE GRAN ABSOLUTE AUTO 0.02 K/mm3 (0.00-0.10); IMMATURE GRAN PERCENT AUTO 0 % (0-1); LYMPHOCYTES ABSOLUTE AUTO 1.45 K/mm3 (0.84-5.20); LYMPHOCYTES PERCENT AUTO 26 % (21-46); MONOCYTES ABSOLUTE AUTO 0.39 K/mm3 (0.16-1.47); MONOCYTES PERCENT AUTO 7 % (4-13); Mean Corpuscular HGB 29.5 pg (26.0-34.0); Mean Corpuscular HGB Conc 31.7 g/dL (31.5-36.5); Mean Corpuscular Volume 93 fL (80-100); Mean Platelet Volume 10.3 fL (9.1-12.4); NEUTROPHILS ABSOLUTE AUTO 3.61 K/mm3 (1.96-9.15); NEUTROPHILS PERCENT AUTO 65 % (41-73); Platelet Count 196 K/mm3 (150-400); RDW Coefficient Variation 13.7 % (11.7-14.2); RDW Standard Deviation 46.7 fL (35.1-46.3); Red Blood Cell Count 5.11 M/mm3 (3.80-5.20); White Blood Cell Count 5.58 K/mm3 (4.00-11.30)
[2020-08-23 07:35] LABS: International Normalized Ratio 2.17; Prothrombin Time Results 22.4 Sec (9.7-11.5)
[2020-08-23 07:38] LABS: Anion Gap 4 mmol/L (6-16); Blood Urea Nitrogen 24 mg/dL (8-24); CO2, Blood 29 mmol/L (21-32); Calcium, Blood 9.5 mg/dL (8.5-10.1); Chloride, Blood 105 mmol/L (98-108); Creatinine, Blood 0.96 mg/dL (0.40-1.00); Glomerular Filtration Rate >60 (60-); Glucose, Blood 88 mg/dL (70-99); Potassium, Blood 4.7 mmol/L (3.5-5.5); Sodium, Blood 138 mmol/L (136-145)
[2020-08-23 07:42] LABS: Appearance, Urine Hazy (Clear); Color, Urine Yellow (P-Yellow)
[2020-08-23 07:43] LABS: Bacteria Rare /hpf; Red Blood Cells, Urine TNTC /hpf (0-2); Squamous Epithelial Cells Rare /hpf (Few); White Blood Cells, Urine 0-2 /hpf (0-5)
== END 2020-08-23 08:29 | disposition home or self-care (01) ==
LOC: ER 06:50
PROVIDERS: Emergency Medicine
DX: R31.9 Hematuria, unspecified (principal); I10 Essential (primary) hypertension; J44.9 Chronic obstructive pulmonary disease, unspecified; Z88.8 Allergy status to other drugs, medicaments and biological substances; Z87.891 Personal history of nicotine dependence
CPT/HCPCS: 80048; 81001; 85025; 85610; 99283

== ENCOUNTER 2020-08-24 06:32 | Emergency (ER) | payer OTHER ==
[~2020-08-24] VITALS: Ht 162.6 cm; Wt 82.5 kg
[~2020-08-24 06:32] MED LIST changes: +ATORVASTATIN CA20 MG PO; +CEFDINIR300 M4 PO
[2020-08-24 07:28] LABS: BASOPHILS ABSOLUTE AUTO 0.04 K/mm3 (0.00-0.23); BASOPHILS PERCENT AUTO 1 % (0-2); EOSINOPHILS ABSOLUTE AUTO 0.07 K/mm3 (0.00-0.68); EOSINOPHILS PERCENT AUTO 1 % (0-6); Hematocrit 40.8 % (33.0-51.0); Hemoglobin 13.2 g/dL (11.5-16.0); IMMATURE GRAN ABSOLUTE AUTO 0.01 K/mm3 (0.00-0.10); IMMATURE GRAN PERCENT AUTO 0 % (0-1); LYMPHOCYTES PERCENT AUTO 23 % (21-46); MONOCYTES ABSOLUTE AUTO 0.35 K/mm3 (0.16-1.47); MONOCYTES PERCENT AUTO 6 % (4-13); Mean Corpuscular HGB 29.4 pg (26.0-34.0); Mean Corpuscular HGB Conc 32.4 g/dL (31.5-36.5); Mean Corpuscular Volume 91 fL (80-100); NEUTROPHILS ABSOLUTE AUTO 3.87 K/mm3 (1.96-9.15); NEUTROPHILS PERCENT AUTO 69 % (41-73); Platelet Count 189 K/mm3 (150-400); RDW Coefficient Variation 13.6 % (11.7-14.2); RDW Standard Deviation 45.8 fL (35.1-46.3); Red Blood Cell Count 4.49 M/mm3 (3.80-5.20); White Blood Cell Count 5.64 K/mm3 (4.00-11.30)
[2020-08-24 07:43] LABS: International Normalized Ratio 2.12; Prothrombin Time Results 21.9 Sec (9.7-11.5)
[2020-08-24 07:45] LABS: Anion Gap 5 mmol/L (6-16); Blood Urea Nitrogen 24 mg/dL (8-24); Bun/Creatinine Ratio 26.3 (12.0-20.0); CO2, Blood 30 mmol/L (21-32); Calcium, Blood 8.8 mg/dL (8.5-10.1); Chloride, Blood 103 mmol/L (98-108); Creatinine, Blood 0.91 mg/dL (0.40-1.00); Glomerular Filtration Rate >60 (60-); Glucose, Blood 101 mg/dL (70-99); Potassium, Blood 4.2 mmol/L (3.5-5.5); Sodium, Blood 138 mmol/L (136-145)
== END 2020-08-24 08:55 | disposition home or self-care (01) ==
LOC: ER 06:32
PROVIDERS: Emergency Medicine
DX: R31.9 Hematuria, unspecified (principal); I10 Essential (primary) hypertension; E78.00 Pure hypercholesterolemia, unspecified; I48.91 Unspecified atrial fibrillation; J44.9 Chronic obstructive pulmonary disease, unspecified; K21.9 Gastro-esophageal reflux disease without esophagitis; Z79.01 Long term (current) use of anticoagulants; Z79.899 Other long term (current) drug therapy; Z88.8 Allergy status to other drugs, medicaments and biological substances; Z87.891 Personal history of nicotine dependence
CPT/HCPCS: 36415; 51798; 80048; 85025; 85610; 99283

== ENCOUNTER 2020-10-06 09:13 | Emergency (ER) | payer OTHER ==
[~2020-10-06] VITALS: Ht 162.6 cm; Wt 86.2 kg
[2020-10-06 09:36] LABS: BASOPHILS ABSOLUTE AUTO 0.06 K/mm3 (0.00-0.23); BASOPHILS PERCENT AUTO 1 % (0-2); EOSINOPHILS ABSOLUTE AUTO 0.05 K/mm3 (0.00-0.68); EOSINOPHILS PERCENT AUTO 1 % (0-6); Hematocrit 42.2 % (33.0-51.0); Hemoglobin 13.7 g/dL (11.5-16.0); IMMATURE GRAN ABSOLUTE AUTO 0.02 K/mm3 (0.00-0.10); IMMATURE GRAN PERCENT AUTO 0 % (0-1); LYMPHOCYTES ABSOLUTE AUTO 1.81 K/mm3 (0.84-5.20); LYMPHOCYTES PERCENT AUTO 29 % (21-46); MONOCYTES ABSOLUTE AUTO 0.44 K/mm3 (0.16-1.47); MONOCYTES PERCENT AUTO 7 % (4-13); Mean Corpuscular HGB 29.3 pg (26.0-34.0); Mean Corpuscular HGB Conc 32.5 g/dL (31.5-36.5); Mean Corpuscular Volume 90 fL (80-100); Mean Platelet Volume 9.9 fL (9.1-12.4); NEUTROPHILS ABSOLUTE AUTO 3.93 K/mm3 (1.96-9.15); NEUTROPHILS PERCENT AUTO 62 % (41-73); Platelet Count 203 K/mm3 (150-400); RDW Coefficient Variation 13.9 % (11.7-14.2); RDW Standard Deviation 46.2 fL (35.1-46.3); Red Blood Cell Count 4.68 M/mm3 (3.80-5.20); White Blood Cell Count 6.31 K/mm3 (4.00-11.30)
[2020-10-06 10:09] LABS: International Normalized Ratio 2.51; Prothrombin Time Results 25.7 Sec (9.7-11.5)
[2020-10-06 10:28] LABS: Alanine Aminotransfer (ALT/SGP 26 U/L (12-78); Albumin, Blood 4.1 g/dL (3.4-5.0); Albumin/Globulin Ratio 1.4 (0.8-1.8); Alk Phos 123 U/L (50-136); Anion Gap 6 mmol/L (6-16); Aspartate Aminotrans (AST/SGOT 22 U/L (12-37); Bilirubin, Total 0.4 mg/dL (0.1-1.0); Blood Urea Nitrogen 21 mg/dL (8-24); Bun/Creatinine Ratio 19.3 (12.0-20.0); CO2, Blood 28 mmol/L (21-32); Calcium, Blood 8.7 mg/dL (8.5-10.1); Chloride, Blood 105 mmol/L (98-108); Creatinine, Blood 1.09 mg/dL (0.40-1.00); Glomerular Filtration Rate 49 (60-); Glucose, Blood 92 mg/dL (70-99); Potassium, Blood 4.4 mmol/L (3.5-5.5); Sodium, Blood 139 mmol/L (136-145); Total Protein, Blood 7.1 g/dL (6.4-8.2); Troponin I <0.015 ng/mL (0.000-0.040)
[2020-10-06 11:07] LABS: Source, Urine Clean Catch
[2020-10-06 11:10] LABS: Appearance, Urine Hazy (Clear); Bilirubin, Urine Neg (Neg); Blood, Urine 1+ (Neg); Color, Urine Yellow (P-Yellow); Glucose Qualitative, Urine Neg (Neg); Ketones, Urine Neg (Neg); Leukocyte Esterase, Urine 1+ (Neg); Nitrite, Urine Neg (Neg); Protein, Urine 1+ (Neg); Specific Gravity, Urine 1.025 (1.003-1.022); Urobilinogen, Urine 1+ (Normal)
[2020-10-06 11:41] LABS: Amorphous Light (0-Heavy); Bacteria Few /hpf; Mucus Light (0-Heavy); Red Blood Cells, Urine 0-2 /hpf (0-2); Squamous Epithelial Cells Many /hpf (Few)
== END 2020-10-06 12:10 | disposition home or self-care (01) ==
LOC: ER 09:13
PROVIDERS: Emergency Medicine
DX: R06.00 Dyspnea, unspecified (principal); R31.9 Hematuria, unspecified; I10 Essential (primary) hypertension; E78.00 Pure hypercholesterolemia, unspecified; I48.91 Unspecified atrial fibrillation; J44.9 Chronic obstructive pulmonary disease, unspecified; Z88.8 Allergy status to other drugs, medicaments and biological substances
CPT/HCPCS: 36415; 71045; 80053; 81001; 84484; 85025; 85610; 87077; 87086; 87186; 93005; 93010; 99284-25

== ENCOUNTER 2020-11-25 12:28 | Emergency (ER) | payer OTHER ==
[~2020-11-25] VITALS: Ht 162.6 cm; Wt 83.5 kg
[2020-11-25 13:34] LABS: BASOPHILS ABSOLUTE AUTO 0.03 K/mm3 (0.00-0.23); BASOPHILS PERCENT AUTO 1 % (0-2); EOSINOPHILS ABSOLUTE AUTO 0.06 K/mm3 (0.00-0.68); EOSINOPHILS PERCENT AUTO 1 % (0-6); Hematocrit 43.6 % (33.0-51.0); Hemoglobin 13.9 g/dL (11.5-16.0); IMMATURE GRAN ABSOLUTE AUTO 0.02 K/mm3 (0.00-0.10); IMMATURE GRAN PERCENT AUTO 0 % (0-1); LYMPHOCYTES ABSOLUTE AUTO 0.59 K/mm3 (0.84-5.20); LYMPHOCYTES PERCENT AUTO 10 % (21-46); MONOCYTES ABSOLUTE AUTO 0.54 K/mm3 (0.16-1.47); MONOCYTES PERCENT AUTO 10 % (4-13); Mean Corpuscular HGB 29.1 pg (26.0-34.0); Mean Corpuscular HGB Conc 31.9 g/dL (31.5-36.5); Mean Corpuscular Volume 91 fL (80-100); Mean Platelet Volume 10.4 fL (9.1-12.4); NEUTROPHILS ABSOLUTE AUTO 4.43 K/mm3 (1.96-9.15); NEUTROPHILS PERCENT AUTO 78 % (41-73); Platelet Count 203 K/mm3 (150-400); RDW Coefficient Variation 14.5 % (11.7-14.2); Red Blood Cell Count 4.78 M/mm3 (3.80-5.20); White Blood Cell Count 5.67 K/mm3 (4.00-11.30)
[2020-11-25 14:18] LABS: Alanine Aminotransfer (ALT/SGP 24 U/L (12-78); Albumin, Blood 4.3 g/dL (3.4-5.0); Albumin/Globulin Ratio 1.4 (0.8-1.8); Alk Phos 130 U/L (50-136); Anion Gap 3 mmol/L (6-16); Aspartate Aminotrans (AST/SGOT 20 U/L (12-37); Bilirubin, Total 0.4 mg/dL (0.1-1.0); Blood Urea Nitrogen 17 mg/dL (8-24); Bun/Creatinine Ratio 17.1 (12.0-20.0); CO2, Blood 30 mmol/L (21-32); Calcium, Blood 9.2 mg/dL (8.5-10.1); Chloride, Blood 106 mmol/L (98-108); Ethanol (Alcohol), Blood, Med <3 mg/dL; Globulin, Blood 3.1 g/dL (2.2-4.0); Glomerular Filtration Rate 54 (60-); Glucose, Blood 85 mg/dL (70-99); Potassium, Blood 4.3 mmol/L (3.5-5.5); Sodium, Blood 139 mmol/L (136-145); Total Protein, Blood 7.4 g/dL (6.4-8.2); Troponin I <0.015 ng/mL (0.000-0.040)
[2020-11-25 17:30] LABS: Source, Urine Clean Catch
[2020-11-25 17:48] LABS: Bilirubin, Urine Neg (Neg); Blood, Urine 4+ (Neg); Color, Urine Yellow (P-Yellow); Glucose Qualitative, Urine Neg (Neg); Ketones, Urine 1+ (Neg); Leukocyte Esterase, Urine 3+ (Neg); Nitrite, Urine Neg (Neg); Protein, Urine 2+ (Neg); Urobilinogen, Urine NORM (Normal)
[2020-11-25 18:21] LABS: Appearance, Urine Hazy (Clear)
[2020-11-25 18:23] LABS: Bacteria Mod /hpf; Squamous Epithelial Cells Mod /hpf (Few)
[2020-11-25 18:25] LABS: WBC Cast 0-2 /lpf (0)
== END 2020-11-25 18:32 | disposition home or self-care (01) ==
LOC: ER 12:28
PROVIDERS: Emergency Medicine Emergency Medical Services
DX: H81.399 Other peripheral vertigo, unspecified ear (principal); I10 Essential (primary) hypertension; I48.91 Unspecified atrial fibrillation; J44.9 Chronic obstructive pulmonary disease, unspecified; K21.9 Gastro-esophageal reflux disease without esophagitis; Z88.8 Allergy status to other drugs, medicaments and biological substances; Z79.899 Other long term (current) drug therapy; Z87.891 Personal history of nicotine dependence; Z99.81 Dependence on supplemental oxygen
CPT/HCPCS: 36415; 70450; 71045; 80053; 81001; 83690; 83880; 84484; 85025; 87077; 87086; 87186; 93005; 93010; 99284-25; A9270; G0480

== ENCOUNTER 2021-04-29 18:31 | Emergency (ER) | payer OTHER ==
[~2021-04-29] VITALS: Ht 162.6 cm; Wt 81.7 kg
[~2021-04-29 18:31] MED LIST changes: +CEFD300 PO; +PANTOPRAZOLE SO40 M2 PO
[2021-04-29 19:25] LABS: BASOPHILS ABSOLUTE AUTO 0.04 K/mm3 (0.00-0.23); BASOPHILS PERCENT AUTO 1 % (0-2); EOSINOPHILS ABSOLUTE AUTO 0.09 K/mm3 (0.00-0.68); EOSINOPHILS PERCENT AUTO 1 % (0-6); Hematocrit 39.8 % (33.0-51.0); Hemoglobin 12.7 g/dL (11.5-16.0); IMMATURE GRAN ABSOLUTE AUTO 0.01 K/mm3 (0.00-0.10); IMMATURE GRAN PERCENT AUTO 0 % (0-1); LYMPHOCYTES ABSOLUTE AUTO 1.67 K/mm3 (0.84-5.20); LYMPHOCYTES PERCENT AUTO 26 % (21-46); MONOCYTES ABSOLUTE AUTO 0.52 K/mm3 (0.16-1.47); MONOCYTES PERCENT AUTO 8 % (4-13); Mean Corpuscular HGB 28.5 pg (26.0-34.0); Mean Corpuscular HGB Conc 31.9 g/dL (31.5-36.5); Mean Corpuscular Volume 89 fL (80-100); Mean Platelet Volume 10.2 fL (9.1-12.4); NEUTROPHILS ABSOLUTE AUTO 4.06 K/mm3 (1.96-9.15); NEUTROPHILS PERCENT AUTO 64 % (41-73); Platelet Count 239 K/mm3 (150-400); RDW Coefficient Variation 13.4 % (11.7-14.2); RDW Standard Deviation 44.1 fL (35.1-46.3); Red Blood Cell Count 4.46 M/mm3 (3.80-5.20); White Blood Cell Count 6.39 K/mm3 (4.00-11.30)
[2021-04-29 19:34] LABS: Source, Urine Voided
[2021-04-29 19:43] LABS: Alanine Aminotransfer (ALT/SGP 24 U/L (12-78); Albumin, Blood 3.9 g/dL (3.4-5.0); Albumin/Globulin Ratio 1.3 (0.8-1.8); Alk Phos 123 U/L (50-136); Anion Gap 4 mmol/L (6-16); Aspartate Aminotrans (AST/SGOT 15 U/L (12-37); Bilirubin, Total 0.2 mg/dL (0.1-1.0); Blood Urea Nitrogen 28 mg/dL (8-24); Bun/Creatinine Ratio 32.8 (12.0-20.0); CO2, Blood 27 mmol/L (21-32); Calcium, Blood 8.6 mg/dL (8.5-10.1); Chloride, Blood 109 mmol/L (98-108); Creatinine, Blood 0.85 mg/dL (0.40-1.00); Globulin, Blood 3.1 g/dL (2.2-4.0); Glomerular Filtration Rate >60 (60-); Glucose, Blood 102 mg/dL (70-99); Potassium, Blood 4.2 mmol/L (3.5-5.5); Sodium, Blood 140 mmol/L (136-145)
[2021-04-29 19:56] LABS: Bilirubin, Urine Neg (Neg); Blood, Urine 2+ (Neg); Glucose Qualitative, Urine Neg (Neg); Ketones, Urine 1+ (Neg); Leukocyte Esterase, Urine Neg (Neg); Nitrite, Urine Neg (Neg); Protein, Urine Neg (Neg); Specific Gravity, Urine 1.015 (1.003-1.022); Urobilinogen, Urine NORM (Normal)
[2021-04-29 20:00] LABS: Appearance, Urine Hazy (Clear); Color, Urine Brown (P-Yellow)
[2021-04-29 20:01] LABS: Bacteria Few /hpf; Red Blood Cells, Urine TNTC /hpf (0-2); Squamous Epithelial Cells Rare /hpf (Few); White Blood Cells, Urine 0-2 /hpf (0-5)
[2021-04-29 23:38] LABS: International Normalized Ratio 2.53
[2021-04-29] MEDS ORDERED: Cipro500 MG PO (23:52)
== END 2021-04-30 00:42 | disposition home or self-care (01) ==
LOC: ER 18:31
PROVIDERS: Emergency Medicine; Physician Assistant
DX: N39.0 Urinary tract infection, site not specified (principal); N19 Unspecified kidney failure; A49.8 Other bacterial infections of unspecified site; I10 Essential (primary) hypertension; J44.9 Chronic obstructive pulmonary disease, unspecified; K21.9 Gastro-esophageal reflux disease without esophagitis; Z87.891 Personal history of nicotine dependence; Z79.2 Long term (current) use of antibiotics; Z79.899 Other long term (current) drug therapy
CPT/HCPCS: 36415; 74176; 80053; 81001; 85025; 85610; 99284-25; A9270

== ENCOUNTER → 2021-06-02 | Outpatient (CLI) | payer OTHER ==
[~2021-06-02] MED LIST changes: +Cipro500 MG PO
[2021-06-02 17:12] LABS: BASOPHILS ABSOLUTE AUTO 0.06 K/mm3 (0.00-0.23); BASOPHILS PERCENT AUTO 1 % (0-2); EOSINOPHILS PERCENT AUTO 2 % (0-6); Hematocrit 40.9 % (33.0-51.0); Hemoglobin 13.2 g/dL (11.5-16.0); IMMATURE GRAN ABSOLUTE AUTO 0.04 K/mm3 (0.00-0.10); IMMATURE GRAN PERCENT AUTO 1 % (0-1); LYMPHOCYTES ABSOLUTE AUTO 1.84 K/mm3 (0.84-5.20); LYMPHOCYTES PERCENT AUTO 27 % (21-46); MONOCYTES ABSOLUTE AUTO 0.44 K/mm3 (0.16-1.47); MONOCYTES PERCENT AUTO 7 % (4-13); Mean Corpuscular HGB 28.7 pg (26.0-34.0); Mean Corpuscular HGB Conc 32.3 g/dL (31.5-36.5); Mean Corpuscular Volume 89 fL (80-100); NEUTROPHILS ABSOLUTE AUTO 4.31 K/mm3 (1.96-9.15); NEUTROPHILS PERCENT AUTO 63 % (41-73); Platelet Count 226 K/mm3 (150-400); RDW Coefficient Variation 14.5 % (11.7-14.2); RDW Standard Deviation 46.4 fL (35.1-46.3); White Blood Cell Count 6.79 K/mm3 (4.00-11.30)
[2021-06-02 17:27] LABS: Albumin/Globulin Ratio 1.3 (0.8-1.8); Bilirubin, Total 0.3 mg/dL (0.1-1.0); Bun/Creatinine Ratio 25.5 (12.0-20.0); Calcium, Blood 9.2 mg/dL (8.5-10.1); Creatinine, Blood 0.98 mg/dL (0.40-1.00); Potassium, Blood 4.3 mmol/L (3.5-5.5)
== END | disposition home or self-care (01) ==
LOC: LAB SHORT 17:05
PROVIDERS: Physician Assistant
DX: G60.9 Hereditary and idiopathic neuropathy, unspecified (principal); N39.0 Urinary tract infection, site not specified
CPT/HCPCS: 80053; 82607; 82746; 85025; 87086

== ENCOUNTER 2021-06-29 08:45 | Emergency (ER) | payer OTHER ==
[~2021-06-29] VITALS: Ht 162.6 cm; Wt 85.7 kg
[2021-06-29 11:17] LABS: Source, Urine Clean Catch
[2021-06-29 11:25] LABS: Bilirubin, Urine Neg (Neg); Blood, Urine 3+ (Neg); Glucose Qualitative, Urine Neg (Neg); Ketones, Urine Neg (Neg); Leukocyte Esterase, Urine 3+ (Neg); Nitrite, Urine Neg (Neg); Protein, Urine 2+ (Neg); Urobilinogen, Urine NORM (Normal)
[2021-06-29 11:34] LABS: Appearance, Urine Hazy (Clear); Color, Urine Yellow (P-Yellow)
[2021-06-29 11:38] LABS: White Blood Cells, Urine TNTC /hpf (0-5)
[2021-06-29 11:39] LABS: Bacteria Many /hpf; Red Blood Cells, Urine TNTC /hpf (0-2); Squamous Epithelial Cells Few /hpf (Few); Yeast/Fungi Urine Few /hpf
[2021-06-29 11:39] LABS: BASOPHILS ABSOLUTE AUTO 0.03 K/mm3 (0.00-0.23); BASOPHILS PERCENT AUTO 1 % (0-2); EOSINOPHILS ABSOLUTE AUTO 0.09 K/mm3 (0.00-0.68); EOSINOPHILS PERCENT AUTO 2 % (0-6); Hematocrit 39.1 % (33.0-51.0); Hemoglobin 12.7 g/dL (11.5-16.0); IMMATURE GRAN ABSOLUTE AUTO 0.02 K/mm3 (0.00-0.10); IMMATURE GRAN PERCENT AUTO 0 % (0-1); LYMPHOCYTES ABSOLUTE AUTO 1.55 K/mm3 (0.84-5.20); LYMPHOCYTES PERCENT AUTO 26 % (21-46); MONOCYTES ABSOLUTE AUTO 0.49 K/mm3 (0.16-1.47); MONOCYTES PERCENT AUTO 8 % (4-13); Mean Corpuscular HGB 28.7 pg (26.0-34.0); Mean Corpuscular HGB Conc 32.5 g/dL (31.5-36.5); Mean Corpuscular Volume 88 fL (80-100); Mean Platelet Volume 9.9 fL (9.1-12.4); NEUTROPHILS PERCENT AUTO 64 % (41-73); Platelet Count 226 K/mm3 (150-400); RDW Standard Deviation 48.6 fL (35.1-46.3); Red Blood Cell Count 4.43 M/mm3 (3.80-5.20); White Blood Cell Count 6.08 K/mm3 (4.00-11.30)
[2021-06-29 11:56] LABS: Albumin, Blood 3.6 g/dL (3.4-5.0); Albumin/Globulin Ratio 1.2 (0.8-1.8); Bilirubin, Total 0.4 mg/dL (0.1-1.0); Bun/Creatinine Ratio 25.7 (12.0-20.0); Calcium, Blood 9.2 mg/dL (8.5-10.1); Creatinine, Blood 0.93 mg/dL (0.40-1.00); Globulin, Blood 3.1 g/dL (2.2-4.0); Potassium, Blood 4.4 mmol/L (3.5-5.5); Total Protein, Blood 6.7 g/dL (6.4-8.2)
[2021-06-29] MEDS ORDERED: MAGCIT300 PO (13:08)
[2021-06-29] MEDS ORDERED: CEPH500 PO (13:08)
[2021-06-29] MEDS ORDERED: BISA5EC PO (13:08)
[2021-06-29] MEDS ORDERED: PHENA200 PO (13:08)
== END 2021-06-29 13:52 | disposition home or self-care (01) ==
LOC: ER 08:45
PROVIDERS: Physician Assistant
DX: K59.00 Constipation, unspecified (principal); N30.90 Cystitis, unspecified without hematuria; I10 Essential (primary) hypertension; E78.00 Pure hypercholesterolemia, unspecified; I48.91 Unspecified atrial fibrillation; Z87.891 Personal history of nicotine dependence
CPT/HCPCS: 74177; 80053; 81001; 83690; 85025; 87077; 87086; 87186; 96374-59; 99284-25; A9270; J0696; Q9967

== ENCOUNTER → 2021-10-20 | Outpatient (CLI) | payer OTHER ==
[~2021-10-20] MED LIST changes: +BISA5EC PO; +CEPH500 PO; +MAGCIT300 PO; +PHENA200 PO
[2021-10-20 10:12] LABS: Source, Urine Clean Catch
[2021-10-20 10:13] LABS: Red Blood Cells, Urine 50-100 /hpf (0-2); Squamous Epithelial Cells Many /hpf (Few); White Blood Cells, Urine 25-50 /hpf (0-5)
[2021-10-20 10:14] LABS: Bacteria Few /hpf
[2021-10-20 10:17] LABS: BASOPHILS ABSOLUTE AUTO 0.04 K/mm3 (0.00-0.23); BASOPHILS PERCENT AUTO 1 % (0-2); EOSINOPHILS ABSOLUTE AUTO 0.06 K/mm3 (0.00-0.68); EOSINOPHILS PERCENT AUTO 1 % (0-6); Hematocrit 41.9 % (33.0-51.0); Hemoglobin 13.7 g/dL (11.5-16.0); IMMATURE GRAN ABSOLUTE AUTO 0.02 K/mm3 (0.00-0.10); IMMATURE GRAN PERCENT AUTO 0 % (0-1); LYMPHOCYTES ABSOLUTE AUTO 1.45 K/mm3 (0.84-5.20); LYMPHOCYTES PERCENT AUTO 26 % (21-46); MONOCYTES ABSOLUTE AUTO 0.39 K/mm3 (0.16-1.47); MONOCYTES PERCENT AUTO 7 % (4-13); Mean Corpuscular HGB 29.3 pg (26.0-34.0); Mean Corpuscular HGB Conc 32.7 g/dL (31.5-36.5); Mean Corpuscular Volume 90 fL (80-100); NEUTROPHILS ABSOLUTE AUTO 3.72 K/mm3 (1.96-9.15); NEUTROPHILS PERCENT AUTO 65 % (41-73); Platelet Count 209 K/mm3 (150-400); RDW Coefficient Variation 14.1 % (11.7-14.2); RDW Standard Deviation 45.7 fL (35.1-46.3); Red Blood Cell Count 4.68 M/mm3 (3.80-5.20); White Blood Cell Count 5.68 K/mm3 (4.00-11.30)
[2021-10-20 10:27] LABS: Albumin, Blood 4.3 g/dL (3.4-5.0); Albumin/Globulin Ratio 1.7 (0.8-1.8); Bilirubin, Total 0.6 mg/dL (0.1-1.0); Bun/Creatinine Ratio 21.4 (12.0-20.0); Calcium, Blood 9.1 mg/dL (8.5-10.1); Creatinine, Blood 0.84 mg/dL (0.40-1.00); Globulin, Blood 2.6 g/dL (2.2-4.0); Potassium, Blood 4.4 mmol/L (3.5-5.5); Total Protein, Blood 6.9 g/dL (6.4-8.2)
[2021-10-20 10:55] LABS: International Normalized Ratio 3.22; Prothrombin Time Results 31.3 Sec (9.7-11.5)
== END | disposition home or self-care (01) ==
LOC: LAB SHORT 10:03 → LAB 10:03
PROVIDERS: General Practice
DX: Z79.01 Long term (current) use of anticoagulants (principal); Z51.81 Encounter for therapeutic drug level monitoring; N13.30 Unspecified hydronephrosis; R31.0 Gross hematuria
CPT/HCPCS: 80053; 81015; 85025; 85610; 87086

== ENCOUNTER 2022-01-06 19:51 | Emergency (ER) | payer OTHER ==
[~2022-01-06] VITALS: Ht 162.6 cm; Wt 86.6 kg
[2022-01-06 21:20] LABS: BASOPHILS ABSOLUTE AUTO 0.04 K/mm3 (0.00-0.23); BASOPHILS PERCENT AUTO 1 % (0-2); EOSINOPHILS ABSOLUTE AUTO 0.05 K/mm3 (0.00-0.68); EOSINOPHILS PERCENT AUTO 1 % (0-6); Hematocrit 39.6 % (33.0-51.0); Hemoglobin 12.9 g/dL (11.5-16.0); IMMATURE GRAN ABSOLUTE AUTO 0.03 K/mm3 (0.00-0.10); IMMATURE GRAN PERCENT AUTO 0 % (0-1); LYMPHOCYTES ABSOLUTE AUTO 0.63 K/mm3 (0.84-5.20); LYMPHOCYTES PERCENT AUTO 7 % (21-46); MONOCYTES ABSOLUTE AUTO 0.63 K/mm3 (0.16-1.47); MONOCYTES PERCENT AUTO 7 % (4-13); Mean Corpuscular HGB 29.7 pg (26.0-34.0); Mean Corpuscular HGB Conc 32.6 g/dL (31.5-36.5); Mean Corpuscular Volume 91 fL (80-100); Mean Platelet Volume 10.1 fL (9.1-12.4); NEUTROPHILS ABSOLUTE AUTO 7.11 K/mm3 (1.96-9.15); NEUTROPHILS PERCENT AUTO 84 % (41-73); Platelet Count 195 K/mm3 (150-400); RDW Coefficient Variation 14.5 % (11.7-14.2); RDW Standard Deviation 48.6 fL (35.1-46.3); Red Blood Cell Count 4.35 M/mm3 (3.80-5.20); White Blood Cell Count 8.49 K/mm3 (4.00-11.30)
[2022-01-06 21:38] LABS: Albumin, Blood 4.1 g/dL (3.4-5.0); Albumin/Globulin Ratio 1.3 (0.8-1.8); Bilirubin, Total 0.5 mg/dL (0.1-1.0); Bun/Creatinine Ratio 27.9 (12.0-20.0); Calcium, Blood 9.1 mg/dL (8.5-10.1); Creatinine, Blood 0.9 mg/dL (0.40-1.00); Globulin, Blood 3.1 g/dL (2.2-4.0); Potassium, Blood 4.3 mmol/L (3.5-5.5); Total Protein, Blood 7.2 g/dL (6.4-8.2)
[2022-01-07 00:58] LABS: Source, Urine Clean Catch
[2022-01-07 01:03] LABS: Appearance, Urine Cloudy (Clear); Bilirubin, Urine Neg (Neg); Blood, Urine 5+ (Neg); Color, Urine Yellow (P-Yellow); Glucose Qualitative, Urine Neg (Neg); Ketones, Urine Neg (Neg); Leukocyte Esterase, Urine 3+ (Neg); Nitrite, Urine Neg (Neg); Protein, Urine 3+ (Neg); Urobilinogen, Urine NORM (Normal)
[2022-01-07 01:11] LABS: Red Blood Cells, Urine 25-50 /hpf (0-2); White Blood Cells, Urine 50-100 /hpf (0-5)
[2022-01-07 01:12] LABS: Bacteria Many /hpf; Squamous Epithelial Cells Rare /hpf (Few)
== END 2022-01-07 01:49 | disposition home or self-care (01) ==
LOC: ER 19:51
PROVIDERS: Emergency Medicine; Physician Assistant
DX: R06.00 Dyspnea, unspecified (principal); N20.1 Calculus of ureter; I10 Essential (primary) hypertension; J44.9 Chronic obstructive pulmonary disease, unspecified; K21.9 Gastro-esophageal reflux disease without esophagitis; Z87.891 Personal history of nicotine dependence; Z88.8 Allergy status to other drugs, medicaments and biological substances; Z79.899 Other long term (current) drug therapy; Z79.01 Long term (current) use of anticoagulants; Z86.73 Personal history of transient ischemic attack (TIA), and cerebral infarction without residual deficits
CPT/HCPCS: 36415; 71045; 80053; 81001; 84484; 85025; 87077; 87086; 87186; 93005; 93010

== ENCOUNTER → 2022-02-28 | Outpatient (CLI) | payer OTHER | END | disposition home or self-care (01) | LOC: LAB SHORT 13:06 | DX: N11.9 Chronic tubulo-interstitial nephritis, unspecified (principal) | CPT/HCPCS: 87086 ==

== ENCOUNTER → 2022-03-13 | Outpatient (CLI) | payer OTHER | END | disposition home or self-care (01) | LOC: LAB SHORT 16:57 | DX: N39.0 Urinary tract infection, site not specified (principal) | CPT/HCPCS: 87086 ==

== ENCOUNTER 2023-12-04 09:36 | Day surgery (SDC) | payer OTHER ==
[~2023-12-04] VITALS: Ht 162.6 cm; Wt 84.8 kg
[~2023-12-04 09:36] MED LIST changes: +Lactated Ringer's 1,000 ML IV ONE
[2023-12-04] MEDS ORDERED: XARELTO20 MG (09:59)
[2023-12-04] MEDS ORDERED: GABA100 (09:59)
[2023-12-04] MEDS ORDERED: MERIBIN5 MG (10:00)
[2023-12-04] MEDS ORDERED: FLUO10 (10:00)
[2023-12-04] MEDS ORDERED: IRBE150 (10:01)
[2023-12-04] MEDS ORDERED: propofoL 50 ML IV ONE ×2 (10:09→10:47)
[2023-12-04] MEDS ORDERED: Lactated Ringer's 1,000 ML IV ONE (10:15)
[2023-12-04 11:42] VITALS: BP 197/83
[2023-12-05] MEDS ORDERED: ROPI1 PO (21:29)
[2023-12-05] MEDS ORDERED: CEFD300 PO (23:44)
== END 2023-12-04 12:02 | disposition home or self-care (01) ==
LOC: ORSCSDS 09:36
PROVIDERS: Internal Medicine Gastroenterology
PROC: 0DJD8ZZ Inspection of Lower Intestinal Tract, Via Natural or Artificial Opening Endoscopic (ICD-10-PCS; principal; 2023-12-04 10:45)
PROC: 0DJ08ZZ Inspection of Upper Intestinal Tract, Via Natural or Artificial Opening Endoscopic (ICD-10-PCS; principal; 2023-12-04 10:45)
DX: R13.10 Dysphagia, unspecified (principal); K21.9 Gastro-esophageal reflux disease without esophagitis; Z12.11 Encounter for screening for malignant neoplasm of colon; Z86.010 Personal history of colon polyps; K57.30 Diverticulosis of large intestine without perforation or abscess without bleeding; I48.91 Unspecified atrial fibrillation; Z79.01 Long term (current) use of anticoagulants; I10 Essential (primary) hypertension; I25.10 Atherosclerotic heart disease of native coronary artery without angina pectoris; J44.9 Chronic obstructive pulmonary disease, unspecified; G47.33 Obstructive sleep apnea (adult) (pediatric); E11.9 Type 2 diabetes mellitus without complications; K75.81 Nonalcoholic steatohepatitis (NASH); Z99.81 Dependence on supplemental oxygen; Z79.899 Other long term (current) drug therapy; Z86.73 Personal history of transient ischemic attack (TIA), and cerebral infarction without residual deficits; F41.9 Anxiety disorder, unspecified
CPT/HCPCS: 43235; G0105; J2704; J7120

== ENCOUNTER 2023-12-05 17:33 | Emergency (ER) | payer OTHER ==
[~2023-12-05] VITALS: Ht 162.6 cm; Wt 82.1 kg
[~2023-12-05 17:33] MED LIST changes: +FLUO10; +GABA100; +IRBE150; -Lactated Ringer's 1,000 ML IV ONE; +MERIBIN5 MG; +XARELTO20 MG
[2023-12-05 19:10] LABS: BASOPHILS ABSOLUTE AUTO 0.04 K/mm3 (0.00-0.23); BASOPHILS PERCENT AUTO 1 % (0-2); EOSINOPHILS ABSOLUTE AUTO 0.08 K/mm3 (0.00-0.68); EOSINOPHILS PERCENT AUTO 1 % (0-6); Hematocrit 40.1 % (33.0-51.0); Hemoglobin 12.2 g/dL (11.5-16.0); IMMATURE GRAN ABSOLUTE AUTO 0.01 K/mm3 (0.00-0.10); IMMATURE GRAN PERCENT AUTO 0 % (0-1); LYMPHOCYTES ABSOLUTE AUTO 1.52 K/mm3 (0.84-5.20); LYMPHOCYTES PERCENT AUTO 27 % (21-46); MONOCYTES ABSOLUTE AUTO 0.39 K/mm3 (0.16-1.47); MONOCYTES PERCENT AUTO 7 % (4-13); Mean Corpuscular HGB 27.5 pg (26.0-34.0); Mean Corpuscular HGB Conc 30.4 g/dL (31.5-36.5); Mean Corpuscular Volume 90 fL (80-100); Mean Platelet Volume 10.2 fL (9.1-12.4); NEUTROPHILS PERCENT AUTO 63 % (41-73); Platelet Count 205 K/mm3 (150-400); RDW Coefficient Variation 14.7 % (11.7-14.2); RDW Standard Deviation 48.2 fL (35.1-46.3); Red Blood Cell Count 4.44 M/mm3 (3.80-5.20); White Blood Cell Count 5.54 K/mm3 (4.00-11.30)
[2023-12-05 19:31] LABS: Albumin, Blood 3.9 g/dL (3.4-5.0); Albumin/Globulin Ratio 1.2 (0.8-1.8); Bilirubin, Total 0.3 mg/dL (0.1-1.0); Bun/Creatinine Ratio 22.4 (12.0-20.0); Calcium, Blood 9.3 mg/dL (8.5-10.1); Creatinine, Blood 0.8 mg/dL (0.40-1.00); Globulin, Blood 3.2 g/dL (2.2-4.0); Potassium, Blood 4.2 mmol/L (3.5-5.5); Total Protein, Blood 7.1 g/dL (6.4-8.2)
[2023-12-05] MEDS ORDERED: ROPI1 PO (21:29)
[2023-12-05] MEDS ORDERED: Labetalol HCL 5 MG/ML 4ML Injection (Single Dose) IV ONE (21:35)
[2023-12-05 21:36] LABS: International Normalized Ratio 1.09; Prothrombin Time Results 11.6 Sec (9.7-11.5)
[2023-12-05 22:29] LABS: Source, Urine Straight Cath
[2023-12-05 22:49] LABS: Appearance, Urine Bloody (Clear); Bilirubin, Urine Neg (Neg); Blood, Urine 4+ (Neg); Color, Urine Red (P-Yellow); Glucose Qualitative, Urine Neg (Neg); Ketones, Urine Neg (Neg); Leukocyte Esterase, Urine Neg (Neg); Nitrite, Urine Neg (Neg); Protein, Urine 4+ (Neg); Specific Gravity, Urine 1.015 (1.003-1.022); Urobilinogen, Urine NORM (Normal); pH, Urine 6.5 (5.0-8.0)
[2023-12-05 23:00] VITALS: BP 186/70
[2023-12-05 23:11] LABS: Bacteria Mod /hpf; Red Blood Cells, Urine TNTC /hpf (0-2); Squamous Epithelial Cells Few /hpf (Few); White Blood Cells, Urine 25-50 /hpf (0-5)
[2023-12-05] MEDS ORDERED: CEFD300 PO (23:44)
[2023-12-05] MEDS ORDERED: Cefdinir 300 MG Cap PO ONE (23:45)
== END 2023-12-05 23:50 | disposition home or self-care (01) ==
LOC: ER 17:33
PROVIDERS: Student in an Organized Health Care Education/Training Program
DX: N39.0 Urinary tract infection, site not specified (principal); R31.9 Hematuria, unspecified; N20.0 Calculus of kidney; K80.20 Calculus of gallbladder without cholecystitis without obstruction; K57.30 Diverticulosis of large intestine without perforation or abscess without bleeding; I10 Essential (primary) hypertension; E78.00 Pure hypercholesterolemia, unspecified; I48.91 Unspecified atrial fibrillation; J44.9 Chronic obstructive pulmonary disease, unspecified; K21.9 Gastro-esophageal reflux disease without esophagitis; Z87.442 Personal history of urinary calculi; Z87.891 Personal history of nicotine dependence; Z88.0 Allergy status to penicillin; Z88.8 Allergy status to other drugs, medicaments and biological substances; Z88.1 Allergy status to other antibiotic agents; Z79.01 Long term (current) use of anticoagulants; Z79.899 Other long term (current) drug therapy
CPT/HCPCS: 70450; 74177; 80053; 81001; 85025; 85610; 85730; 86850; 86900; 86901; 87086; 96374-59; 99284-25; A9270; Q9967

== ENCOUNTER → 2023-12-06 | Outpatient (CLI) | payer OTHER ==
[~2023-12-06] MED LIST changes: +ROPI1 PO
== END ==
LOC: LAB 13:00 → LAB SHORT 13:00
DX: N39.0 Urinary tract infection, site not specified (principal)
CPT/HCPCS: 87086

== ENCOUNTER 2024-04-11 05:31 | Emergency (ER) | payer OTHER ==
[~2024-04-11] VITALS: Ht 162.6 cm; Wt 81.7 kg
[2024-04-11 05:51] LABS: BASOPHILS ABSOLUTE AUTO 0.05 K/mm3 (0.00-0.23); BASOPHILS PERCENT AUTO 1 % (0-2); EOSINOPHILS ABSOLUTE AUTO 0.04 K/mm3 (0.00-0.68); EOSINOPHILS PERCENT AUTO 1 % (0-6); Hematocrit 35.2 % (33.0-51.0); Hemoglobin 10.5 g/dL (11.5-16.0); IMMATURE GRAN ABSOLUTE AUTO 0.02 K/mm3 (0.00-0.10); IMMATURE GRAN PERCENT AUTO 0 % (0-1); LYMPHOCYTES ABSOLUTE AUTO 1.01 K/mm3 (0.84-5.20); LYMPHOCYTES PERCENT AUTO 17 % (21-46); MONOCYTES ABSOLUTE AUTO 0.31 K/mm3 (0.16-1.47); MONOCYTES PERCENT AUTO 5 % (4-13); Mean Corpuscular HGB 26.4 pg (26.0-34.0); Mean Corpuscular HGB Conc 29.8 g/dL (31.5-36.5); Mean Corpuscular Volume 89 fL (80-100); NEUTROPHILS ABSOLUTE AUTO 4.44 K/mm3 (1.96-9.15); NEUTROPHILS PERCENT AUTO 76 % (41-73); Platelet Count 211 K/mm3 (150-400); RDW Coefficient Variation 16.1 % (11.7-14.2); RDW Standard Deviation 52.7 fL (35.1-46.3); Red Blood Cell Count 3.97 M/mm3 (3.80-5.20); White Blood Cell Count 5.87 K/mm3 (4.00-11.30)
[2024-04-11 06:04] LABS: CORONAVIRUS COVID-19 AG Negative (NEGATIVE); INFLUENZA A AG Negative (NEGATIVE); INFLUENZA B AG Negative (NEGATIVE)
[2024-04-11 06:24] LABS: Albumin, Blood 3.9 g/dL (3.4-5.0); Albumin/Globulin Ratio 1.4 (0.8-1.8); Bilirubin, Total 0.5 mg/dL (0.1-1.0); Bun/Creatinine Ratio 27.4 (12.0-20.0); Calcium, Blood 8.6 mg/dL (8.5-10.1); Creatinine, Blood 0.88 mg/dL (0.40-1.00); Globulin, Blood 2.7 g/dL (2.2-4.0); Potassium, Blood 4.3 mmol/L (3.5-5.5); Total Protein, Blood 6.6 g/dL (6.4-8.2)
[2024-04-11] MEDS ORDERED: MethylPREDNISolone Sod Succ 125 MG Vial IV ONE (06:30)
[2024-04-11] MEDS ORDERED: Albuterol 2.5 MG/3 ML VIAL INH ONE (06:30)
[2024-04-11] MEDS ORDERED: Albuterol 2.5 MG/3 ML VIAL INH SCH (10:45)
[2024-04-11] MEDS ORDERED: DELTASONE20 MG PO (12:49)
[2024-04-11] MEDS ORDERED: ALBU90OI INH (12:49)
[2024-04-11] MEDS ORDERED: AZIT250 PO (12:49)
[2024-04-11 15:21] VITALS: BP 156/82
== END 2024-04-11 16:04 | disposition home or self-care (01) ==
LOC: ER 05:31
PROVIDERS: Emergency Medicine
DX: J44.1 Chronic obstructive pulmonary disease with (acute) exacerbation (principal); M54.17 Radiculopathy, lumbosacral region; I10 Essential (primary) hypertension; E78.00 Pure hypercholesterolemia, unspecified; I48.91 Unspecified atrial fibrillation; K21.9 Gastro-esophageal reflux disease without esophagitis; Z87.891 Personal history of nicotine dependence; Z79.899 Other long term (current) drug therapy; Z88.0 Allergy status to penicillin; Z88.8 Allergy status to other drugs, medicaments and biological substances; Z88.1 Allergy status to other antibiotic agents
CPT/HCPCS: 71046; 80053; 83880; 84484; 85025; 87428-QW; 93005; 93010; 94640; 94645; 94664; 96374; 99285-25; J2919

== ENCOUNTER → 2024-05-01 | Outpatient (CLI) | payer OTHER ==
[~2024-05-01] MED LIST changes: +AZIT250 PO; +Coreg25 MG PO; +DELTASONE20 MG PO; +Lasix20 MG PO; +Macrobid 100 M100 MG PO
== END ==
LOC: LAB SHORT 18:16 → LAB 18:16
DX: R10.9 Unspecified abdominal pain (principal)
CPT/HCPCS: 87086

== ENCOUNTER 2024-05-15 12:46 | Inpatient (IN) | payer OTHER ==
[~2024-05-15] VITALS: Ht 162.6 cm; Wt 81.7 kg
[~2024-05-15 12:46] MED LIST changes: -FLUO10; -IRBE150; +IRBE150 PO; -MERIBIN5 MG; +MERIBIN5 MG PO; -ROPI1 PO; +ROPINIROLE HCL PO; -XARELTO20 MG
[2024-05-15] MEDS ORDERED: MethylPREDNISolone Sod Succ 125 MG Vial IV ONE (13:30)
[2024-05-15] MEDS ORDERED: Ipratropium/Albuterol SulF 2.5-0.5MG/3 ML Amp INH ONE (13:30)
[2024-05-15 14:07] LABS: BASOPHILS ABSOLUTE AUTO 0.03 K/mm3 (0.00-0.23); BASOPHILS PERCENT AUTO 1 % (0-2); EOSINOPHILS ABSOLUTE AUTO 0.01 K/mm3 (0.00-0.68); EOSINOPHILS PERCENT AUTO 0 % (0-6); Hematocrit 30.5 % (33.0-51.0); Hemoglobin 9.3 g/dL (11.5-16.0); IMMATURE GRAN ABSOLUTE AUTO 0.01 K/mm3 (0.00-0.10); IMMATURE GRAN PERCENT AUTO 0 % (0-1); LYMPHOCYTES ABSOLUTE AUTO 0.64 K/mm3 (0.84-5.20); LYMPHOCYTES PERCENT AUTO 19 % (21-46); MONOCYTES ABSOLUTE AUTO 0.38 K/mm3 (0.16-1.47); MONOCYTES PERCENT AUTO 11 % (4-13); Mean Corpuscular HGB 25.8 pg (26.0-34.0); Mean Corpuscular HGB Conc 30.5 g/dL (31.5-36.5); Mean Corpuscular Volume 85 fL (80-100); Mean Platelet Volume 10.3 fL (9.1-12.4); NEUTROPHILS ABSOLUTE AUTO 2.25 K/mm3 (1.96-9.15); NEUTROPHILS PERCENT AUTO 68 % (41-73); Platelet Count 201 K/mm3 (150-400); RDW Coefficient Variation 15.7 % (11.7-14.2); RDW Standard Deviation 48.2 fL (35.1-46.3); Red Blood Cell Count 3.61 M/mm3 (3.80-5.20); White Blood Cell Count 3.32 K/mm3 (4.00-11.30)
[2024-05-15 14:26] LABS: Albumin, Blood 3.6 g/dL (3.4-5.0); Albumin/Globulin Ratio 1.4 (0.8-1.8); Bilirubin, Total 0.4 mg/dL (0.1-1.0); Calcium, Blood 8.3 mg/dL (8.5-10.1); Creatinine, Blood 0.72 mg/dL (0.40-1.00); Globulin, Blood 2.6 g/dL (2.2-4.0); Potassium, Blood 4.1 mmol/L (3.5-5.5); Total Protein, Blood 6.2 g/dL (6.4-8.2)
[2024-05-15 15:29] LABS: Influenza A, PCR NEGATIVE (NEGATIVE); Influenza B, PCR NEGATIVE (NEGATIVE); Resp Syncytial Virus, PCR NEGATIVE (NEGATIVE); SARS-Cov-2 (COVID-19) PCR, MMC NEGATIVE (NEGATIVE)
[2024-05-15 16:53] LABS: International Normalized Ratio 1.16; Prothrombin Time Results 12.3 Sec (9.7-11.5)
[2024-05-15] MEDS ORDERED: Dose Adjust by Pharmacy XX STA (17:13)
[2024-05-15] MEDS ORDERED: Heparin Sodium,Porcine/0.5 NS 500 ML IV SCH (17:15)
[2024-05-15] MEDS ORDERED: FLU VACC TS2024-25(6MOS UP)/PF 45 MCG/0.5 ML SYRINGE IM ONE (17:20)
[2024-05-15] MEDS ORDERED: Ipratropium/Albuterol SulF 2.5-0.5MG/3 ML Amp INH SCH ×2 (17:20→21:55)
[2024-05-15] MEDS ORDERED: Albuterol 2.5 MG/3 ML VIAL INH PRN (17:25)
[2024-05-15] MEDS ORDERED: Irbesartan 150 MG Tab PO SCH (18:00)
[2024-05-15] MEDS ORDERED: MethylPREDNISolone Sod Succ 40 MG VIAL IV SCH (21:00)
[2024-05-15] MEDS ORDERED: Flecainide Acetate 100 MG Tab PO SCH (21:00)
[2024-05-15 21:05] VITALS: BP 150/78
[2024-05-16] VITALS (11 sets, daily range): BP systolic 155–187; BP diastolic 66–112
[2024-05-16 00:18] LABS: BASOPHILS ABSOLUTE AUTO 0.01 K/mm3 (0.00-0.23); BASOPHILS PERCENT AUTO 0 % (0-2); EOSINOPHILS PERCENT AUTO 0 % (0-6); Hemoglobin 9.9 g/dL (11.5-16.0); IMMATURE GRAN ABSOLUTE AUTO 0.01 K/mm3 (0.00-0.10); IMMATURE GRAN PERCENT AUTO 0 % (0-1); LYMPHOCYTES ABSOLUTE AUTO 0.29 K/mm3 (0.84-5.20); LYMPHOCYTES PERCENT AUTO 11 % (21-46); MONOCYTES ABSOLUTE AUTO 0.03 K/mm3 (0.16-1.47); MONOCYTES PERCENT AUTO 1 % (4-13); Mean Corpuscular HGB 25.2 pg (26.0-34.0); Mean Corpuscular Volume 84 fL (80-100); NEUTROPHILS ABSOLUTE AUTO 2.43 K/mm3 (1.96-9.15); NEUTROPHILS PERCENT AUTO 88 % (41-73); Platelet Count 241 K/mm3 (150-400); RDW Coefficient Variation 15.5 % (11.7-14.2); RDW Standard Deviation 47.2 fL (35.1-46.3); Red Blood Cell Count 3.93 M/mm3 (3.80-5.20); White Blood Cell Count 2.77 K/mm3 (4.00-11.30)
[2024-05-16 00:35] LABS: Albumin, Blood 3.6 g/dL (3.4-5.0); Albumin/Globulin Ratio 1.2 (0.8-1.8); Bilirubin, Total 0.6 mg/dL (0.1-1.0); Bun/Creatinine Ratio 19.7 (12.0-20.0); Calcium, Blood 8.9 mg/dL (8.5-10.1); Creatinine, Blood 0.66 mg/dL (0.40-1.00); Globulin, Blood 2.9 g/dL (2.2-4.0); Potassium, Blood 4.1 mmol/L (3.5-5.5); Total Protein, Blood 6.5 g/dL (6.4-8.2)
[2024-05-16] MEDS ORDERED: Dose Adjust by Pharmacy XX STA ×3 (01:28→15:15)
[2024-05-16] MEDS ORDERED: Heparin Sodium 5000 Units/ML 1ML MDV IV ONE (01:30)
--- NOTE | 2024-05-16 05:15 | NUR ---
SHIFT SUMMARY PT ADMITTED AT 2030 FOR COPD EXCACERBATION AND EKG CHANGES. HEPARIN GTT STARTED IN ED AND CONTINUES TO RUN PER ORDER- SEE EMAR. PT HAS NOT SLEPT AT ALL DURING THE NIGHT. DENIES PAIN. DENIES SOB OR RESPITORY DISTRESS. TELEMETRY SHOWING NSR. AMBULATES WITH FWW AND ASSIST WITH STEADY GAIT. BED IN LOWEST POSITION, CALL LIGHT WITHIN REACH, SIDERAILS UP X2, BED ALARM ON.
[2024-05-16] MEDS ORDERED: Pantoprazole Sodium 40 MG Tab PO SCH (06:00)
[2024-05-16] MEDS ORDERED: FURO20 PO (11:31)
[2024-05-16] MEDS ORDERED: FLUO10 PO (11:32)
--- NOTE | 2024-05-16 15:31 | NUR ---
Arlen (pt) was awake and alert. Pt expressed concerns about impending surgery and often checked the flores for the doctor. Provided compassionate listening while pt detailed concerns about health and various family connections. Pt was raised pentecostalism and remains that way out of reverance for her parents and their beliefs. Pt is concerned with the state of the world and local drug problems and seems to have a fatalistic view on life. Pt often prays and believes that spirituality should exist beyond the confines of pentecostal. Prayed with pt concerning her surgery and pt verbally expressed gratitude for visit.
[2024-05-16] MEDS ORDERED: Heparin Sodium 1000 Units/ML 10ML MDV ONE (16:25)
[2024-05-16] MEDS ORDERED: NS 1,000 ML IV ONE ×2 (16:25→16:29)
[2024-05-16] MEDS ORDERED: Verapamil HCL 2.5 MG/ML 2ML Injection ONE (16:25)
[2024-05-16] MEDS ORDERED: Nitroglycerin 2 MG/20 ML BTL ONE (16:26)
[2024-05-16] MEDS ORDERED: NS 250 ML IV ONE (16:26)
[2024-05-16] MEDS ORDERED: FentaNYL Citrate 50 MCG/ML 2 ML Injection ONE (16:28)
[2024-05-16] MEDS ORDERED: Midazolam HCl 1MG / ML 2ML Vial ONE (16:29)
--- NOTE | 2024-05-16 16:57 | NUR ---
SHIFT SUMMARY: PATIENT A/OX3, CONFUSED TO DATES AND FORGETFUL AT TIMES, BUT EASILY REDIRECTABLE. PATIENT DENIES CP/PRESSURE, SOB, N/V AND DIZZINESS. PATIENT ON TELE, SR HR IN THE 70'S BPM c OCCASIONAL PVC AND QTC 0.50., DR. BARBOSA IS AWARE. PATIENT ON RA, SATTING 90-94%, BUT USES 2L O2 AT NIGHT, LUNGS SOUNDS WHEEZY T/O. PATIENT ON HEPARIN GTT AT 18 U/KG/HR, RATE CONTOLLED BY PHARMACIST. PATIENT HEPARIN GTT STOPPED AT 1624 FOR ANGIOGRAM, NOTIFIED PHARMACIST-MICHELINE. PATIENT NPO SINCE [place], CONTINENT OF BLADDER, AMBULATES TO [facility] c SBA. PATIENT SHOWERED AND LINEN CHANGED c [facility] INTERN FROM [facility]. [facility]. 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 ALL PERSONAL BELONGINGS WERE SENT TO PCU RM 4.
[2024-05-16] MEDS ORDERED: Atropine Sulfate 0.1 MG/ML 10ML SYR ONE (17:04)
[2024-05-16] MEDS ORDERED: Ondansetron HCl 2 MG / ML 2ML Vial ONE (17:05)
[2024-05-16] MEDS ORDERED: HydrALAZINE HCl 20 MG / ML 1ML Vial ONE (17:08)
[2024-05-16] MEDS ORDERED: Furosemide 10 MG/ML 4ML Vial IV ONE (17:30)
[2024-05-16] MEDS ORDERED: HydrALAZINE HCl 25 MG Tab PO PRN (19:05)
--- NOTE | 2024-05-16 19:26 | NUR ---
NURSE NOTE: BLOOD PRESSURE ELEVATED,[facility]IG[facility] HOSPITALIST NOTIFIED, PROVIDER PLACED ORDER SEE EMAR.
[2024-05-16] MEDS ORDERED: rOPINIRole HCl 1 MG Tab PO SCH (21:35)
--- NOTE | 2024-05-16 21:57 | NUR ---
2100 BEHAVIORAL INCIDENT PRIMARY RN CHARU CALLED THIS RN TO ROOM FOR ASSISTANCE. UPON ARRIVING, PT PRESENTING PARANOID, ANXIOUS, AND CONFRONTIVE WITH CHARU WYATT. PT MAKING STATEMENTS SAYING "WELL YOU GUYS TOOK MY PILLS OUT OF MY PILL BOX" "IM NOT A DRUGGY, I WON'T BE TAKING THESE DEALER BAGGIES" "WHY WON'T YOU PEOPLE GIVE ME MY PILLS" "I'M GETTING OUT OF THIS PLACE, THIS IS TRIPPING ME OUT". REFUSING CARE, INCLUDING DEFLATION OF TR BAND. THIS RN SAT DOWN WITH PT. EXPLAINED TO HER THAT HER PILLS WERE WITH PHARMACY AND THAT IT WAS POLICY FOR HER TO NOT HAVE HER PILLS AND TO USE THE HOSPITALS TO PREVENT DOUBLE DOSING/ADVERSE INTERACTIONS. EXPLAINED THAT PHARMACY PILLS ARE NOT ALWAYS THE SAME COLOR HOME ONES DUE TO GENERIC VS TRADE. EXPLAINED SHE WAS NOT SAFE TO LEAVE DUE TO STILL RECOVERING TR BAND. AFTER 10/15 MINUTES, PT CALMED DOWN AND PRESENTING WITH LESS PARANOID/ANXIOUS STATEMENTS. ALLOWING CARE AGAIN. CALLED PHARMACY, RETRIEVED RECEIPT. EDUCATED PT ON THIS. CALLED AND RECEIVED ORDER FOR HOME REQUIP ORDER PER PT REQUEST. 2139 PT REFUSING MEDS FROM PHARMACY NOW. CONTINUING EFFORTS IN PLACE TO MAKE PT FEEL SAFE AND TO BE MEDICALLY SAFE.
--- NOTE | 2024-05-16 22:07 | NUR ---
2200- PT IS REFUSING TO TAKE NOC MEDS. PT IS MORE CONFUSED AND STATES SHE IS NOT TAKING MEDS THAT DIDN'T COME FROM A BOTTLE. PT WAS EDUCATED BY THIS RN AND PLANT OPERATIONS MANAGER ROBERTO OF MED PACKAGING IN HOSPITAL. PT IS FIXATED ON HER HOME MEDS SHE BROUGHT WITH HER. PT WAS PROVIDED A RECEIPT FROM PHARMACY WITH LIST OF HER MEDS THEY ARE HOLDING.
[2024-05-16 23:20] LABS: Source, Urine Clean Catch
[2024-05-16 23:24] LABS: Bilirubin, Urine Neg (Neg); Blood, Urine 1+ (Neg); Glucose Qualitative, Urine Neg (Neg); Ketones, Urine Neg (Neg); Leukocyte Esterase, Urine Neg (Neg); Nitrite, Urine Neg (Neg); Protein, Urine Neg (Neg); Urobilinogen, Urine NORM (Normal)
[2024-05-16 23:36] LABS: Appearance, Urine Clear (Clear); Color, Urine Pale Yellow (P-Yellow)
[2024-05-16 23:37] LABS: Bacteria Few /hpf; Red Blood Cells, Urine 0-2 /hpf (0-2); Squamous Epithelial Cells Few /hpf (Few); White Blood Cells, Urine 0-2 /hpf (0-5)
[2024-05-17] VITALS (7 sets, daily range): BP systolic 145–203; BP diastolic 72–100
--- NOTE | 2024-05-17 01:18 | NUR ---
0115- PT REFUSED HYDRALZINE FOR HER HTN. PT STATED SHE WILL MANAGE HER BLOOD PRESSURE AT HOME. PT EDUCATED ON RISKS OF STROKE. PT STATES SHE UNDERSTANDS.
--- NOTE | 2024-05-17 05:39 | NUR ---
NOC SUMMARY- PT HAS BECAME MORE CONFUSED AND FORGETFUL. PT HAS REFUSED TO TAKE MOST OF SCHEDULED MEDS. PT HAS REFUSED HYDRALZINE THIS AM. PT WAS EDUCATED ON RISKS OF STROKE. PT STATES SHE IS AWARE AND WILL TREAT HERSELF WHEN SHE GETS HOME. PT HAS NOT SLEPT VERY MUCH. PT HAS REPEATEDLY REMOVED O2, TELE AND SPO2 FINGER PROBE. PT WAS PROVIDED A PUREWICK DEVICE AND WAS USING IT UNTIL SHE PULLED IT OUT. PT IS IMPULSIVE AND TRIES TO GET OOB WITHOUT CALLING. BED ALARM IS IN USE AND ARMED. NO BLEEDING NOTED AT ANGIOGRAM SITE. NO TELE EVENTS. PT REMAINS ON O2 DUE TO SPO2 DESATING TO 80'S ON RA. PT CURRENTLY AWAKE AND IN NO DISTRESS. CALL LIGHT IN REACH.
[2024-05-17 05:48] LABS: BASOPHILS PERCENT AUTO 0 % (0-2); EOSINOPHILS PERCENT AUTO 0 % (0-6); Hematocrit 35.1 % (33.0-51.0); Hemoglobin 10.9 g/dL (11.5-16.0); IMMATURE GRAN ABSOLUTE AUTO 0.03 K/mm3 (0.00-0.10); IMMATURE GRAN PERCENT AUTO 0 % (0-1); LYMPHOCYTES ABSOLUTE AUTO 0.49 K/mm3 (0.84-5.20); LYMPHOCYTES PERCENT AUTO 6 % (21-46); MONOCYTES ABSOLUTE AUTO 0.51 K/mm3 (0.16-1.47); MONOCYTES PERCENT AUTO 7 % (4-13); Mean Corpuscular HGB 25.7 pg (26.0-34.0); Mean Corpuscular HGB Conc 31.1 g/dL (31.5-36.5); Mean Corpuscular Volume 83 fL (80-100); Mean Platelet Volume 9.6 fL (9.1-12.4); NEUTROPHILS ABSOLUTE AUTO 6.81 K/mm3 (1.96-9.15); NEUTROPHILS PERCENT AUTO 87 % (41-73); Platelet Count 293 K/mm3 (150-400); RDW Coefficient Variation 15.8 % (11.7-14.2); RDW Standard Deviation 47.4 fL (35.1-46.3); Red Blood Cell Count 4.24 M/mm3 (3.80-5.20); White Blood Cell Count 7.84 K/mm3 (4.00-11.30)
[2024-05-17 06:11] LABS: Albumin, Blood 3.8 g/dL (3.4-5.0); Albumin/Globulin Ratio 1.3 (0.8-1.8); Bilirubin, Total 0.6 mg/dL (0.1-1.0); Bun/Creatinine Ratio 28.4 (12.0-20.0); Calcium, Blood 8.7 mg/dL (8.5-10.1); Creatinine, Blood 0.92 mg/dL (0.40-1.00); Potassium, Blood 3.7 mmol/L (3.5-5.5); Total Protein, Blood 6.8 g/dL (6.4-8.2)
--- NOTE | 2024-05-17 06:53 | NUR ---
0650- PT HOME MEDS ARE IN PHARMACY. MED RECIEPT IS IN CHART BOOK. PT IS IS HAVING DIFFICULTY UNDERSTANDING SHE CAN HAVE THEM BACK WHEN DISCHARGED.
--- NOTE | 2024-05-17 07:30 | NUR ---
[facility] Pt A&O to self. Pt asking if she should go to the hospital. Pt reminded she's currently in the hospital. Pt able to state she's in [facility]. Pt states month "March, April, May." Then states year, "19.. 19.. Oh I can't remember." Pt reoriented to date. Pt crying, stating medications taken & turned to powder. Pt then altering story of home medications multiple times to this nurse. This nurse assuring pt that home medications that she had with her when she came in to the hospital are safely secured in hospital pharmacy & will be returned to pt. Pt difficulty understanding, continuing to cry & state she's being lied to & that she can't afford losing her $100 medications. Pt eventually calmed & eventually reassured that medications will be provided. Pt BP elevated. Pt agreeable to take medication for BP. Pt wearing 2L NC. Pt reports she's supposed to have oxygen at home but states "They were supposed to deliver oxygen last week but they didn't bring it." Pt telemetry showing SR w/ inverted T waves. HR 60s-70s. Pt denies CP or discomfort. Pt w/ R radial access site post angiogram. Site w/ transparent dressing over site & arm board in place. Site WNL.
--- NOTE | 2024-05-17 14:24 | NUR ---
Update / Medical status Pt more oriented, A&O to self, place, month & year. VSS. Monitor continues to show SR w/ T wave inversion. Die Cutter Diamond to bedside this AM, stating pt able to discharge from cardiology standpoint. Spo2 > 92% on 2L NC. Home o2 eval done w/ RT report of pt needing 2L NC continuously upon discharge home. Pt w/ difficulty remembering details & more confused at times. EFM provider w/ orders for medical w/ tele status.
[2024-05-17] MEDS ORDERED: Carvedilol 6.25 MG Tab PO SCH (17:00)
--- NOTE | 2024-05-17 17:36 | NUR ---
End of Shift Pt medical w/ telemetry status. A&O to self, place, month & year. VSS. Monitor showing SR w/ T wave inversion. Spo2 > 92% on 2L NC. Home o2 eval done today w/ plan for pt to discharge w/ 2L NC. [facility] to bedside for oxygen delivery. O2 at bedside, ready for pt discharge. [facility] rep states will come back at time of discharge to meet w/ pt & arrange home o2 set up w/ pt. Pt right radial access site WNL. Transparent dressing to site & arm board in place. Pt home medications remain stored in hospital pharmacy.
[2024-05-17] MEDS ORDERED: Rivaroxaban 10 MG Tab PO SCH (18:00)
[2024-05-18] VITALS (7 sets, daily range): BP systolic 144–193; BP diastolic 64–116
--- NOTE | 2024-05-18 01:28 | NUR ---
TRANSFER PATIENT ALERT, ORIENTED x2-3. ATTEMPTS TO ANSWER QUESTIONS BUT PATIENT ONLY ABLE TO RELAY WHERE WE ARE AND WHAT DAY IT IS. PATIENT OTHERWISE CONVERSING APPROPRIATELY. BP STABLE. NO EVENTS ON TELE. PATIENT ON NEW BASELINE 2L NC WITH SPO2 >90%. PATIENT TRANSFERRED TO MEDICAL FLOOR WITH [facility]. PATIENT STANDBY ASSIST TO BEDSIDE COMMODE AND TO WHEELCHAIR FOR TRANSFER UPSTAIRS. PATIENT TRANSFERRED WITH ALL BELONGINGS, CHART AND MEDCATION RECEIPT. REPORT GIVEN TO MEDICAL FLOOR NURSE.
--- NOTE | 2024-05-18 03:29 | NUR ---
PT ARRIVED ON UNIT @ 0130 FROM PCU 04. PT CAME VIA WC AND WAS ABLE TO AMBULATE WITH SBA TO BED. PT ON 2L/NC. PT HAS [facility] IN POSSESSION. PT BP ELEVATED UPON ARRIVAL TO UNIT. PT IS CONFUSED AND UNABLE TO ANSWER QUESTIONS. BED ALARM IN PLACE.
--- NOTE | 2024-05-18 05:05 | NUR ---
SHIFT SUMMARY NOC TRANSFER FROM PCU 04 @ 0200. PT A/O X 2, CONFUSED AND CAN NOT FOLLOW CONVERSATION APPROPRIATELY. PT BP ELEVATED UPON ARRIVAL TO UNIT, BUT PRN HYDRALAZINE HELD DUE TO BRADYCARDIA @ 52 BPM. PT ON 2L/NC WHICH IS NEW ESTABLISHED BASELINE. PT HAD ANGIOGRAM PERFORMED 05/16/24 WITH R RADIAL ARTERY ACCESSED. PT ARRIVED ON UNIT WITH [employer] [facility]2 [facility]QUIP[facility] FOR POSSIBLE DISCHARGE HOME TO [place] TODAY AFTER HOME O2 EVALUATION. PT ON TELE SINUS RITA IN LOW 50'S. PT CURRENTLY RESTING WITH BED ALARM ON, BED IN LOWEST POSITION, AND CALL LIGHT WITHIN REACH.
[2024-05-18 05:15] LABS: BASOPHILS PERCENT AUTO 0 % (0-2); EOSINOPHILS PERCENT AUTO 0 % (0-6); Hematocrit 36.6 % (33.0-51.0); Hemoglobin 11.2 g/dL (11.5-16.0); IMMATURE GRAN ABSOLUTE AUTO 0.05 K/mm3 (0.00-0.10); IMMATURE GRAN PERCENT AUTO 1 % (0-1); LYMPHOCYTES PERCENT AUTO 6 % (21-46); MONOCYTES ABSOLUTE AUTO 0.28 K/mm3 (0.16-1.47); MONOCYTES PERCENT AUTO 4 % (4-13); Mean Corpuscular HGB 25.3 pg (26.0-34.0); Mean Corpuscular HGB Conc 30.6 g/dL (31.5-36.5); Mean Corpuscular Volume 83 fL (80-100); Mean Platelet Volume 10.6 fL (9.1-12.4); NEUTROPHILS ABSOLUTE AUTO 6.41 K/mm3 (1.96-9.15); NEUTROPHILS PERCENT AUTO 90 % (41-73); Platelet Count 300 K/mm3 (150-400); RDW Coefficient Variation 15.6 % (11.7-14.2); RDW Standard Deviation 46.8 fL (35.1-46.3); Red Blood Cell Count 4.42 M/mm3 (3.80-5.20); White Blood Cell Count 7.14 K/mm3 (4.00-11.30)
[2024-05-18 05:46] LABS: Bun/Creatinine Ratio 41.2 (12.0-20.0); Calcium, Blood 8.8 mg/dL (8.5-10.1); Creatinine, Blood 0.83 mg/dL (0.40-1.00); Potassium, Blood 4.2 mmol/L (3.5-5.5)
[2024-05-18] MEDS ORDERED: FLUoxetine HCL 20 MG CAP PO SCH (09:00)
[2024-05-18] MEDS ORDERED: Furosemide 20 MG Tab PO SCH (09:00)
[2024-05-18] MEDS ORDERED: PredniSONE 20 MG Tab PO SCH (09:00)
--- NOTE | 2024-05-18 18:21 | NUR ---
SUMMARY- AAOX4 THIS SHIFT, BUT PT HAS OCASSIONAL BOUTS OF STATING NONSENSICAL TOPICS WHEN COVERSING WITH HER. PT ON 2L CONTINUOUS. NO ACUTE EVENTS THIS SHIFT. SBA. NO COMPLAINTS OF PAIN.
[2024-05-19 00:55] VITALS: BP 181/99
[2024-05-19 04:38] VITALS: BP 205/92
[2024-05-19 04:40] VITALS: BP 205/97
[2024-05-19 05:01] LABS: BASOPHILS ABSOLUTE AUTO 0.01 K/mm3 (0.00-0.23); BASOPHILS PERCENT AUTO 0 % (0-2); EOSINOPHILS PERCENT AUTO 0 % (0-6); Hematocrit 38.5 % (33.0-51.0); Hemoglobin 11.7 g/dL (11.5-16.0); IMMATURE GRAN ABSOLUTE AUTO 0.04 K/mm3 (0.00-0.10); IMMATURE GRAN PERCENT AUTO 0 % (0-1); LYMPHOCYTES PERCENT AUTO 11 % (21-46); MONOCYTES ABSOLUTE AUTO 0.86 K/mm3 (0.16-1.47); MONOCYTES PERCENT AUTO 8 % (4-13); Mean Corpuscular HGB 25.3 pg (26.0-34.0); Mean Corpuscular HGB Conc 30.4 g/dL (31.5-36.5); Mean Corpuscular Volume 83 fL (80-100); Mean Platelet Volume 10.1 fL (9.1-12.4); NEUTROPHILS ABSOLUTE AUTO 8.66 K/mm3 (1.96-9.15); NEUTROPHILS PERCENT AUTO 80 % (41-73); Platelet Count 321 K/mm3 (150-400); RDW Coefficient Variation 15.5 % (11.7-14.2); Red Blood Cell Count 4.62 M/mm3 (3.80-5.20); White Blood Cell Count 10.77 K/mm3 (4.00-11.30)
[2024-05-19 05:27] LABS: Bun/Creatinine Ratio 36.8 (12.0-20.0); Calcium, Blood 8.8 mg/dL (8.5-10.1); Creatinine, Blood 1.06 mg/dL (0.40-1.00); Potassium, Blood 4.2 mmol/L (3.5-5.5)
[2024-05-19] MEDS ORDERED: HydrALAZINE HCl 20 MG / ML 1ML Vial IV PRN (05:35)
--- NOTE | 2024-05-19 05:47 | NUR ---
SHIFT SUMMARY NOC PT A/O X 3. LABILE AT TIMES BUT COOPERATIVE WITH CARE. PT BP 205/97 THIS AM AND PT REFUSED PRN PO HYDRALAZINE, AND OTHER AM RX. PT EDUCATED ABOUT DISCHARGE BEING DELAYED TODAY IF BP REMAINS ELEVATED AND PT FINALLY AGREED TO IV HYDRALAZINE TO TREAT HTN. PT ON TELE SINUS IN 60'S. REMAINS ON 2L/N SPO2 >92%. PT EXCITED ABOUT PROSPECT OF GOING HOME TO [place] TODAY. PT CURRENTLY RESTING WITH BED ALARM ON, BED IN LOWEST POSITION, AND CALL LIGHT WITHIN REACH.
--- NOTE | 2024-05-19 06:31 | NUR ---
SHIFT SUMMARY NOC PT A/O X 3. LABILE AND REFUSING MORNING MEDICATIONS. PT BP 205/97 THIS AM AND PT REFUSING BOTH PO/IV HYDRALAZINE TO DECREASE BP, PT EDUCATED ON REASON WHY THEY SHOULD TAKE IT AND THAT THEY PROBABLY WOULD NOT DISCHARGE TODAY IF BP REMAINS HIGH. PT STATES THAT THEY DO NOT CARE AND WILL LEAVE ANYWAY. PT ON TELE SINUS IN 60'S. ON 2L/NC SPO2 >92%. PT HAS REFUSED ALL CARE SINCE AM VITALS AND LAB DRAW. PT CURRENTLY RESTING WITH BED IN LOWEST POSITION, AND CALL LIGHT WITHIN REACH.
[2024-05-19] MEDS ORDERED: Ipratropium/Albuterol SulF 2.5-0.5MG/3 ML Amp INH PRN (06:45)
[2024-05-19 07:37] VITALS: BP 211/103
[2024-05-19 11:46] VITALS: BP 144/69
[2024-05-19] MEDS ORDERED: Ondansetron HCl 2 MG / ML 2ML Vial IV PRN (13:40)
[2024-05-19 15:52] VITALS: BP 156/72
[2024-05-19] MEDS ORDERED: PRED20 PO (16:12)
[2024-05-19] MEDS ORDERED: IPRAT-ALBUT 0.5-3 ML INH (16:15)
--- NOTE | 2024-05-19 17:06 | NUR ---
DC-1645 PT DC IN STABLE CONDITION WITH 2L PORTABLE O2. PT BROUGHT DOWN IN WC-PICKED UP BY FRIEND. PT LEFT WITH ALL BELONGINGS. PT GIVEN ALL MEDS FROM PHARMACY THAT WERE LOCKED UP.
== END 2024-05-19 16:43 | disposition home or self-care (01) | DRG 189 ==
LOC: ER 12:46 → ERHOLD 17:17 → MEDS 17:17 → PCU 05-16 17:34 → MEDS 05-18 01:39
PROVIDERS: Student in an Organized Health Care Education/Training Program; ADMIT Internal Medicine
PROC: B2111ZZ Fluoroscopy of Multiple Coronary Arteries using Low Osmolar Contrast (ICD-10-PCS; principal; 2024-05-16)
PROC: 4A023N7 Measurement of Cardiac Sampling and Pressure, Left Heart, Percutaneous Approach (ICD-10-PCS; 2024-05-16)
PROC: B2151ZZ Fluoroscopy of Left Heart using Low Osmolar Contrast (ICD-10-PCS; 2024-05-16)
DX: J96.21 Acute and chronic respiratory failure with hypoxia (principal); G93.41 Metabolic encephalopathy; J44.1 Chronic obstructive pulmonary disease with (acute) exacerbation; I10 Essential (primary) hypertension; E78.5 Hyperlipidemia, unspecified; K21.9 Gastro-esophageal reflux disease without esophagitis; Z96.652 Presence of left artificial knee joint; Z96.611 Presence of right artificial shoulder joint; Z96.642 Presence of left artificial hip joint; Z96.0 Presence of urogenital implants; K70.0 Alcoholic fatty liver; E83.51 Hypocalcemia; D64.9 Anemia, unspecified; R10.13 Epigastric pain; I48.0 Paroxysmal atrial fibrillation; G47.30 Sleep apnea, unspecified; I25.10 Atherosclerotic heart disease of native coronary artery without angina pectoris; Z87.59 Personal history of other complications of pregnancy, childbirth and the puerperium; Z87.891 Personal history of nicotine dependence; Z99.81 Dependence on supplemental oxygen; Z79.01 Long term (current) use of anticoagulants; Z88.0 Allergy status to penicillin; Z88.8 Allergy status to other drugs, medicaments and biological substances; Z79.899 Other long term (current) drug therapy; Z79.52 Long term (current) use of systemic steroids; Z79.2 Long term (current) use of antibiotics; Z79.51 Long term (current) use of inhaled steroids; Z87.442 Personal history of urinary calculi; Z90.89 Acquired absence of other organs; Z90.710 Acquired absence of both cervix and uterus; Z87.19 Personal history of other diseases of the digestive system; Z98.890 Other specified postprocedural states; Z28.21 Immunization not carried out because of patient refusal
CPT/HCPCS: 0241U; 36415; 71046; 76937; 80048; 80053; 81001; 84484; 85025; 85610; 85730; 93005; 93010; 93306; 93458; 94640; 94664; 94760; 94761; 94762; 96374; 97129; 97165; 99152; 99285-25; A9270; C1769; C1887; C1894; J0360; J0461; J1644; J1940; J2250; J2405; J2919; J3010; J7030; J7050; J7512; Q9967

== ENCOUNTER → 2024-06-06 | Outpatient (CLI) | payer OTHER ==
[~2024-06-06] MED LIST changes: +IPRAT-ALBUT 0.5-3 ML INH; +PRED20 PO
== END ==
LOC: LAB SHORT 17:19 → LAB 17:19
DX: R41.3 Other amnesia (principal)
CPT/HCPCS: 87086

== ENCOUNTER → 2024-06-10 | Outpatient (CLI) | payer OTHER ==
[2024-06-10 15:25] LABS: BASOPHILS ABSOLUTE AUTO 0.03 K/mm3 (0.00-0.23); BASOPHILS PERCENT AUTO 1 % (0-2); EOSINOPHILS ABSOLUTE AUTO 0.06 K/mm3 (0.00-0.68); EOSINOPHILS PERCENT AUTO 1 % (0-6); Hematocrit 32.4 % (33.0-51.0); Hemoglobin 9.8 g/dL (11.5-16.0); IMMATURE GRAN ABSOLUTE AUTO 0.01 K/mm3 (0.00-0.10); IMMATURE GRAN PERCENT AUTO 0 % (0-1); LYMPHOCYTES ABSOLUTE AUTO 0.96 K/mm3 (0.84-5.20); LYMPHOCYTES PERCENT AUTO 22 % (21-46); MONOCYTES ABSOLUTE AUTO 0.35 K/mm3 (0.16-1.47); MONOCYTES PERCENT AUTO 8 % (4-13); Mean Corpuscular HGB Conc 30.2 g/dL (31.5-36.5); Mean Corpuscular Volume 83 fL (80-100); Mean Platelet Volume 10.3 fL (9.1-12.4); NEUTROPHILS ABSOLUTE AUTO 3.02 K/mm3 (1.96-9.15); NEUTROPHILS PERCENT AUTO 68 % (41-73); Platelet Count 253 K/mm3 (150-400); RDW Coefficient Variation 16.6 % (11.7-14.2); RDW Standard Deviation 49.1 fL (35.1-46.3); Red Blood Cell Count 3.92 M/mm3 (3.80-5.20); White Blood Cell Count 4.43 K/mm3 (4.00-11.30)
[2024-06-10 15:54] LABS: Albumin, Blood 3.8 g/dL (3.4-5.0); Anion Gap 8 mmol/L (3-11); Blood Urea Nitrogen 21 mg/dL (8-24); Bun/Creatinine Ratio 23.3 (12.0-20.0); CO2, Blood 29 mmol/L (21-32); Calcium, Blood 9.2 mg/dL (8.5-10.1); Chloride, Blood 104 mmol/L (98-108); Glomerular Filtration Rate 66 (60-); Glucose, Blood 116 mg/dL (70-99); Phosphorus, Blood 2.9 mg/dL (2.5-4.9); Potassium, Blood 4.3 mmol/L (3.5-5.5); Sodium, Blood 137 mmol/L (136-145)
[2024-06-10 16:18] LABS: Percent Saturation 3.9 % (15.0-50.0); Thyroid Stimulating Hormone 0.872 uIU/mL (0.360-4.800)
[2024-06-10 16:20] LABS: Albumin, Blood 3.9 g/dL (3.4-5.0); Albumin/Globulin Ratio 1.3 (0.8-1.8); Bilirubin, Total 0.5 mg/dL (0.1-1.0); Calcium, Blood 9.4 mg/dL (8.5-10.1); Creatinine, Blood 0.81 mg/dL (0.40-1.00); Globulin, Blood 2.9 g/dL (2.2-4.0); Potassium, Blood 4.3 mmol/L (3.5-5.5); Total Protein, Blood 6.8 g/dL (6.4-8.2)
== END ==
LOC: LAB SHORT 14:01 → LAB 14:01
PROVIDERS: Internal Medicine Nephrology
DX: N18.9 Chronic kidney disease, unspecified (principal); J44.1 Chronic obstructive pulmonary disease with (acute) exacerbation; D63.1 Anemia in chronic kidney disease; R60.0 Localized edema; R41.3 Other amnesia; R53.82 Chronic fatigue, unspecified
CPT/HCPCS: 80053; 80069; 82607; 82728; 82746; 83540; 83550; 83880; 84443; 85018; 85025